=== PATIENT | male | born 1935 | race Caucasian/White ===

== ENCOUNTER 2018-05-14 22:49 | Inpatient (IN) | payer MEDICARE, OTHER ==
[~2018-05-14] VITALS: Ht 182.9 cm; Wt 72.6 kg
[2018-05-14] MEDS ORDERED: LORATADINE10 M2 PO (23:17)
[2018-05-14] MEDS ORDERED: ZYPREXA2.5 MG ORAL (23:17)
[2018-05-14] MEDS ORDERED: DEPAKENE L250 MG/5 M GT (23:17)
[2018-05-14] MEDS ORDERED: COLACE100 MG ORAL (23:17)
[2018-05-14] MEDS ORDERED: SYNTHROID25 MCG ORAL (23:17)
[2018-05-15] VITALS (8 sets, daily range): BP systolic 102–137; BP diastolic 50–79
[2018-05-15 00:03] LABS: ANION GAP 10 mmol/L (5-15); BLOOD UREA NITROGEN 17 mg/dL (7-18); CALCIUM 9.1 MG/DL (8.5-10.1); CARBON DIOXIDE 26 MMOL/L (21-32); CHLORIDE 104 MMOL/L (98-107); POTASSIUM 4.5 MMOL/L (3.5-5.1); SODIUM 140 MMOL/L (136-145)
[2018-05-15 00:12] LABS: ALBUMIN 2.7 G/DL (3.4-5.0); ALBUMIN/GLOBULIN RATIO 0.6 (1.0-2.7); ALKALINE PHOSPHATASE 97 U/L (46-116); ASPARTATE AMINO TRANSFERASE 13 U/L (15-37); BILIRUBIN,TOTAL 0.3 MG/DL (0.2-1.0); CREATINE KINASE 130 U/L (26-308)
[2018-05-15 00:14] LABS: BILIRUBIN, URINE NEGATIVE (NEGATIVE); GLUCOSE, URINE (UA) NEGATIVE (NEGATIVE); KETONES,URINE NEGATIVE (NEGATIVE); LEUKOCYTE ESTERASE ,URINE 1+ (NEGATIVE); NITRITE,URINE NEGATIVE (NEGATIVE); PH,URINE 5 (4.5-8.0); PROTEIN,URINE 2+ (NEGATIVE); UROBILINOGEN,URINE NORMAL MG/DL (0.0-1.0)
[2018-05-15] MEDS ORDERED: NS 1000ml 2,200 ML IVLG ONE (00:15)
[2018-05-15] MEDS ORDERED: Albuterol/Ipratropium 3ml neb HHN ONE (00:15)
[2018-05-15] MEDS ORDERED: Cefepime HCl 1 GM in D5W 55 ML IVPB ONE (00:15)
[2018-05-15 00:16] LABS: HEMATOCRIT 33.9 % (42.0-52.0); HEMOGLOBIN 11.3 G/DL (14.2-18.0); MEAN CORPUSCULAR VOLUME 86 FL (80-99); PLATELET COUNT 291 K/UL (150-450); RED BLOOD COUNT 3.93 M/UL (4.70-6.10); RED CELL DISTRIBUTION WIDTH 14.7 % (11.6-14.8); WHITE BLOOD COUNT 17.1 K/UL (4.8-10.8)
[2018-05-15 00:28] LABS: APPEARANCE,URINE CLEAR; COLOR,URINE YELLOW
[2018-05-15 00:49] LABS: ALANINE AMINOTRANSFERASE 16 U/L (12-78); CKMB 1.5 NG/ML (0.0-3.6)
--- NOTE | 2018-05-15 04:27 | Emergency Room Report ---
History of Present Illness General Chief Complaint: Fever Source: Patient Present Illness HPI Patient is an 82-year-old male sent in by PMD after increased fever. The patient was noted to have increased difficulty breathing. He had prior history of schizophrenia. The patient noted to have increased work of breathing. The patient was noted to be somewhat confused. This was noted to have temperature up to 101. History is markedly limited by poor historian. Allergies: Coded Allergies: No Known Allergies (Unverified , 05/14/18) Patient History Past Medical History: see triage record Reviewed Nursing Documentation: PMH: Agreed; PSxH: Agreed Nursing Documentation-PMH Past Medical History: No History, Except For Hx Cardiac Problems: Yes - hypokalemia, CKD Hx Asthma: Yes Hx COPD: Yes Hx Cancer: No Hx Gastrointestinal Problems: Yes - malnutrition, DYSPHAGIA Hx Dialysis: No - CKD Hx Neurological Problems: Yes Hx Dementia: Yes - without behavioral disturbance Review of Systems All Other Systems: negative except mentioned in HPI Physical Exam Vital Signs Date Time Temp Pulse Resp B/P (MAP) Pulse Ox O2 Delivery O2 Flow Rate FiO2 05/14/18 22:50 97.2 82 14 102/62 95 Room Air 05/15/18 00:08 21 Sp02 EP Interpretation: reviewed, normal General Appearance: no apparent distress, Chronically Ill Head: atraumatic ENT: dry mucus membranes Neck: normal inspection, supple, no bony tend, limited range of motion Respiratory: normal inspection, no respiratory distress, no retraction, rhonchi Cardiovascular #1: regular rate, rhythm, no edema Gastrointestinal: normal inspection, normal bowel sounds, non tender, soft, no guarding, no hernia Genitourinary: no CVA tenderness Musculoskeletal: normal inspection, back normal, decreased range of motion Neurologic: aphasia, motor weakness Psychiatric: depressed affect Skin: normal inspection, normal color, no rash Medical Decision Making Diagnostic Impression: Primary Impression: Pneumonia ER Course Patient presented for fever and shortness of breath. Differential included but was not limited to anemia, pneumonia, pneumothorax, myocardial infarction, pericardial effusion, congestive heart failure, acidosis. Because of complexity of patient's case laboratory testing and imaging studies were ordered. Patient noted to have a fever. Chest x-ray one view interpreted by me showed right lower lobe infiltrate. The laboratory testing was no for elevated white blood count. The patient started on IV fluids as well as IV antibiotics. Dr. Rell Tovar was contacted for inpatient management due to primary care physician Labs Test 05/14/18 23:30 05/15/18 00:03 White Blood Count 17.1 K/UL (4.8-10.8) Red Blood Count 3.93 M/UL (4.70-6.10) Hemoglobin 11.3 G/DL (14.2-18.0) Hematocrit 33.9 % (42.0-52.0) Mean Corpuscular Volume 86 FL (80-99) Mean Corpuscular Hemoglobin 28.7 PG (27.0-31.0) Mean Corpuscular Hemoglobin Concent 33.3 G/DL (32.0-36.0) Red Cell Distribution Width 14.7 % (11.6-14.8) Platelet Count 291 K/UL (150-450) Mean Platelet Volume 6.5 FL (6.5-10.1) Neutrophils (%) (Auto) % (45.0-75.0) Lymphocytes (%) (Auto) % (20.0-45.0) Monocytes (%) (Auto) % (1.0-10.0) Eosinophils (%) (Auto) % (0.0-3.0) Basophils (%) (Auto) % (0.0-2.0) Sodium Level 140 MMOL/L (136-145) Potassium Level 4.5 MMOL/L (3.5-5.1) Chloride Level 104 MMOL/L (98-107) Carbon Dioxide Level 26 MMOL/L (21-32) Anion Gap 10 mmol/L (5-15) Blood Urea Nitrogen 17 mg/dL (7-18) Creatinine 1.0 MG/DL (0.55-1.30) Estimat Glomerular Filtration Rate mL/min (>60) Glucose Level 129 MG/DL (74-106) Lactic Acid Level 1.50 mmol/L (0.4-2.0) Calcium Level 9.1 MG/DL (8.5-10.1) Phosphorus Level 4.0 MG/DL (2.5-4.9) Magnesium Level 1.9 MG/DL (1.8-2.4) Total Bilirubin 0.3 MG/DL (0.2-1.0) Aspartate Amino Transf (AST/SGOT) 13 U/L (15-37) Alanine Aminotransferase (ALT/SGPT) 16 U/L (12-78) Alkaline Phosphatase 97 U/L (46-116) Total Creatine Kinase 130 U/L (26-308) Creatine Kinase MB 1.5 NG/ML (0.0-3.6) Creatine Kinase MB Relative Index 1.1 Troponin I 0.006 ng/mL (0.000-0.056) Pro-B-Type Natriuretic Peptide 335 pg/mL (0-125) Total Protein 7.4 G/DL (6.4-8.2) Albumin 2.7 G/DL (3.4-5.0) Globulin 4.7 g/dL Albumin/Globulin Ratio 0.6 (1.0-2.7) Thyroid Stimulating Hormone (TSH) 2.740 uiU/mL (0.358-3.740) Free Thyroxine 0.85 NG/DL (0.76-1.46) Valproic Acid (Depakene) Level 16 MCG/ML (50-100) Urine Color Yellow Urine Appearance Clear Urine pH 5 (4.5-8.0) Urine Specific [place] 1.020 (1.005-1.035) Urine Protein 2+ (NEGATIVE) Urine Glucose (UA) Negative (NEGATIVE) Urine Ketones Negative (NEGATIVE) Urine Blood 2+ (NEGATIVE) Urine Nitrite Negative (NEGATIVE) Urine Bilirubin Negative (NEGATIVE) Urine Urobilinogen Normal MG/DL (0.0-1.0) Urine Leukocyte Esterase 1+ (NEGATIVE) Urine RBC 5-10 /HPF (0 - 0) Urine WBC 0-2 /HPF (0 - 0) Urine Squamous Epithelial Cells Few /LPF (NONE/OCC) Urine Bacteria Few /HPF (NONE) EKG Diagnostic Results Rate: normal Rhythm: NSR ST Segments: no acute changes Last Vital Signs Date Time Temp Pulse Resp B/P (MAP) Pulse Ox O2 Delivery O2 Flow Rate FiO2 05/15/18 02:00 Room Air Room Air 05/15/18 01:40 98.7 73 16 130/79 100 05/15/18 01:40 21 Status: unchanged Disposition: ADMITTED INPATIENT Condition: Serious Referrals: Rell Tovar DO (PCP) Rafael Julio MD May 15, 2018 04:27
[2018-05-15] MEDS: D5 1/2NS 1,000 ML IV SCH ×2 (04:58→21:40)
[2018-05-15] MEDS: Levothyroxine 25mcg tab ORAL SCH (06:01)
[2018-05-15 06:58] LABS: ANION GAP 9 mmol/L (5-15); BASOPHILS % (AUTO) 0.9 % (0.0-2.0); BLOOD UREA NITROGEN 14 mg/dL (7-18); CALCIUM 9.2 MG/DL (8.5-10.1); CARBON DIOXIDE 25 MMOL/L (21-32); CHLORIDE 107 MMOL/L (98-107); CREATININE 0.7 MG/DL (0.55-1.30); EOSINOPHILS % (AUTO) 0.3 % (0.0-3.0); HEMATOCRIT 33.9 % (42.0-52.0); HEMOGLOBIN 11.2 G/DL (14.2-18.0); LYMPHOCYTES % (AUTO) 12.5 % (20.0-45.0); MEAN CORPUSCULAR VOLUME 87 FL (80-99); MONOCYTES % (AUTO) 5.8 % (1.0-10.0); NEUTROPHILS % (AUTO) 80.4 % (45.0-75.0); PLATELET COUNT 264 K/UL (150-450); RED BLOOD COUNT 3.92 M/UL (4.70-6.10); SODIUM 141 MMOL/L (136-145); WHITE BLOOD COUNT 13.6 K/UL (4.8-10.8)
[2018-05-15] MEDS: Docusate 100mg cap ORAL SCH (08:26)
[2018-05-15] MEDS: OLANZapine 2.5mg tab ORAL SCH ×3 (08:26→17:00)
[2018-05-15] MEDS ORDERED: Promethazine/Codeine 5ml UD ORAL PRN (10:30)
--- NOTE | 2018-05-15 10:36 | Consultation ---
History of Present Illness General Date patient seen: May 15, 2018 Chief Complaint: Fever Present Illness HPI 82-year-old male with hx of psychiatric disease, COPD, hypothyroid, jail resident sent in to ER with CC of fever. The patient was noted to have increased difficulty breathing and increased work of breathing. He was somewhat confused. History is markedly limited by poor historian. His CXR showed RLL infiltrate and he had borderline low BP and admitted to [facility]. Allergies: Coded Allergies: No Known Allergies (Unverified , 05/14/18) Medication History Scheduled Docusate Sodium* (Colace*), 100 MG ORAL DAILY, (Reported) Levothyroxine Sodium* (Synthroid*), 25 MCG ORAL DAILY, (Reported) Olanzapine* (Zyprexa*), 2.5 MG ORAL TID, (Reported) Miscellaneous Medications Loratadine (Loratadine), 10 MG PO, (Reported) Valproic Acid (Valproic Acid), 250 MG GT, (Reported) Patient History Healthcare decision maker Resuscitation status Full Code Advanced Directive on File Yes Past Medical/Surgical History Past Medical/Surgical History: (1) Emphysema lung (2) Psychiatric disorder (3) Hypothyroid Review of Systems Constitutional: Reports: fever, malaise Respiratory: Reports: cough, shortness of breath Physical Exam General Appearance: cachetic Lines, tubes and drains: peripheral Neck: non-tender, normal alignment Respiratory/Chest: rhonchi - left, rhonchi - right Cardiovascular/Chest: normal peripheral pulses, normal rate Abdomen: normal bowel sounds, non tender Genitourinary/Rectal: normal genital exam, normal rectal exam Extremities: normal range of motion, non-tender Skin Exam: normal pigmentation 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 Last 24 Hour Vital Signs Date Time Temp Pulse Resp B/P (MAP) Pulse Ox O2 Delivery O2 Flow Rate FiO2 05/15/18 08:00 85 05/15/18 08:00 Room Air Room Air 05/15/18 08:00 96.8 66 22 137/69 (91) 99 05/15/18 04:00 97.7 82 16 122/66 (84) 97 05/15/18 04:00 Room Air Room Air 05/15/18 03:38 65 05/15/18 02:00 Room Air Room Air 05/15/18 01:45 97.6 85 16 118/70 (86) 97 05/15/18 01:43 84 05/15/18 01:40 98.7 73 16 130/79 100 Room Air 05/15/18 01:40 98.7 73 16 130/79 100 Room Air 21 05/15/18 00:25 95 18 Room Air 05/15/18 00:20 74 16 99 Room Air 21 05/15/18 00:08 71 15 98 Room Air 21 05/15/18 00:08 71 15 Room Air 21 05/15/18 00:00 97.5 95 16 102/62 95 Room Air 05/14/18 22:50 97.2 82 14 102/62 95 Room Air Intake and Output 05/14/18 05/15/18 19:00 07:00 Intake Total 1670 ml Balance 1670 ml Intake Oral 0 ml IV Total 1670 ml Laboratory Tests Test 05/14/18 23:30 05/15/18 00:03 05/15/18 06:30 White Blood Count 17.1 K/UL (4.8-10.8) H 13.6 K/UL (4.8-10.8) H Red Blood Count 3.93 M/UL (4.70-6.10) L 3.92 M/UL (4.70-6.10) L Hemoglobin 11.3 G/DL (14.2-18.0) L 11.2 G/DL (14.2-18.0) L Hematocrit 33.9 % (42.0-52.0) L 33.9 % (42.0-52.0) L Mean Corpuscular Volume 86 FL (80-99) 87 FL (80-99) Mean Corpuscular Hemoglobin 28.7 PG (27.0-31.0) 28.7 PG (27.0-31.0) Mean Corpuscular Hemoglobin Concent 33.3 G/DL (32.0-36.0) 33.1 G/DL (32.0-36.0) Red Cell Distribution Width 14.7 % (11.6-14.8) 15.0 % (11.6-14.8) H Platelet Count 291 K/UL (150-450) 264 K/UL (150-450) Mean Platelet Volume 6.5 FL (6.5-10.1) 6.6 FL (6.5-10.1) Neutrophils (%) (Auto) % (45.0-75.0) 80.4 % (45.0-75.0) H Lymphocytes (%) (Auto) % (20.0-45.0) 12.5 % (20.0-45.0) L Monocytes (%) (Auto) % (1.0-10.0) 5.8 % (1.0-10.0) Eosinophils (%) (Auto) % (0.0-3.0) 0.3 % (0.0-3.0) Basophils (%) (Auto) % (0.0-2.0) 0.9 % (0.0-2.0) Sodium Level 140 MMOL/L (136-145) 141 MMOL/L (136-145) Potassium Level 4.5 MMOL/L (3.5-5.1) 4.0 MMOL/L (3.5-5.1) Chloride Level 104 MMOL/L (98-107) 107 MMOL/L (98-107) Carbon Dioxide Level 26 MMOL/L (21-32) 25 MMOL/L (21-32) Anion Gap 10 mmol/L (5-15) 9 mmol/L (5-15) Blood Urea Nitrogen 17 mg/dL (7-18) 14 mg/dL (7-18) Creatinine 1.0 MG/DL (0.55-1.30) 0.7 MG/DL (0.55-1.30) Estimat Glomerular Filtration Rate mL/min (>60) mL/min (>60) Glucose Level 129 MG/DL (74-106) H 108 MG/DL (74-106) H Lactic Acid Level 1.50 mmol/L (0.4-2.0) Calcium Level 9.1 MG/DL (8.5-10.1) 9.2 MG/DL (8.5-10.1) Phosphorus Level 4.0 MG/DL (2.5-4.9) Magnesium Level 1.9 MG/DL (1.8-2.4) Total Bilirubin 0.3 MG/DL (0.2-1.0) Aspartate Amino Transf (AST/SGOT) 13 U/L (15-37) L Alanine Aminotransferase (ALT/SGPT) 16 U/L (12-78) Alkaline Phosphatase 97 U/L (46-116) Total Creatine Kinase 130 U/L (26-308) Creatine Kinase MB 1.5 NG/ML (0.0-3.6) Creatine Kinase MB Relative Index 1.1 Troponin I 0.006 ng/mL (0.000-0.056) Pro-B-Type Natriuretic Peptide 335 pg/mL (0-125) H Total Protein 7.4 G/DL (6.4-8.2) Albumin 2.7 G/DL (3.4-5.0) L Globulin 4.7 g/dL Albumin/Globulin Ratio 0.6 (1.0-2.7) L Thyroid Stimulating Hormone (TSH) 2.740 uiU/mL (0.358-3.740) Free Thyroxine 0.85 NG/DL (0.76-1.46) Valproic Acid (Depakene) Level 16 MCG/ML (50-100) L Urine Color Yellow Urine Appearance Clear Urine pH 5 (4.5-8.0) Urine Specific [place] 1.020 (1.005-1.035) Urine Protein 2+ (NEGATIVE) H Urine Glucose (UA) Negative (NEGATIVE) Urine Ketones Negative (NEGATIVE) Urine Blood 2+ (NEGATIVE) H Urine Nitrite Negative (NEGATIVE) Urine Bilirubin Negative (NEGATIVE) Urine Urobilinogen Normal MG/DL (0.0-1.0) Urine Leukocyte Esterase 1+ (NEGATIVE) H Urine RBC 5-10 /HPF (0 - 0) H Urine WBC 0-2 /HPF (0 - 0) Urine Squamous Epithelial Cells Few /LPF (NONE/OCC) Urine Bacteria Few /HPF (NONE) Height (Feet): 6 Weight (Pounds): 160 Medications Current Medications Medications (Trade) Dose Ordered Sig/Tiara Route PRN Reason Start Time Stop Time Status Last Admin Dose Admin Dextrose (Dextrose 50%) 25 ml Q30M PRN IV Hypoglycemia 05/15/18 04:45 06/14/18 04:44 Dextrose (Dextrose 50%) 50 ml Q30M PRN IV Hypoglycemia 05/15/18 04:45 06/14/18 04:44 Dextrose/Sodium Chloride 1,000 ml @ 60 mls/hr [id number] IV 05/15/18 05:00 06/14/18 04:59 05/15/18 04:58 Docusate Sodium (Colace) 100 mg DAILY ORAL 05/15/18 09:00 06/14/18 08:59 05/15/18 08:26 Levothyroxine Sodium (Synthroid) 25 mcg DAILY@0630 ORAL 05/15/18 06:30 06/14/18 06:29 05/15/18 06:01 Loratadine (Claritin 10mg) 10 mg DAILY ORAL 05/15/18 09:00 06/14/18 08:59 05/15/18 08:26 Olanzapine (ZyPREXA) 2.5 mg TID ORAL 05/15/18 09:00 06/14/18 08:59 05/15/18 08:26 Valproic Acid (Depakene) 250 mg TWICE A DAY ORAL 05/15/18 09:00 06/14/18 08:59 05/15/18 08:27 Assessment/Plan Problem List: (1) Pneumonia ICD Codes: J18.9 - Pneumonia, unspecified organism SNOMED: 802809238 (2) At high risk for aspiration ICD Codes: Z91.89 - Other specified personal risk factors, not elsewhere classified SNOMED: 403992670 (3) Severe protein-calorie malnutrition ICD Codes: E43 - Unspecified severe protein-calorie malnutrition SNOMED: 126001152 (4) Emphysema lung ICD Codes: J43.9 - Emphysema, unspecified SNOMED: 94491889 (5) Hypothyroid ICD Codes: E03.9 - Hypothyroidism, unspecified SNOMED: 48224630 (6) Psychiatric disorder ICD Codes: F99 - Mental disorder, not otherwise specified SNOMED: 81169649, 762367913 Assessment/Plan swallow evaluation respiratory treatment check electrolytes check sputum broad spectrum abx ID evaluation sputum induction titrate fio2 to sat of 92% dvt prophylaxis. Boni Miller MD May 15, 2018 10:36
--- NOTE | 2018-05-15 11:27 | Diagnostic Imaging Report ---
Indication: Dyspnea Comparison: None A single view chest radiograph was obtained. Findings: Interstitial vascular prominence demonstrated. Heart size is normal. Bones are slightly osteopenic. IMPRESSION: CHF suspected
[2018-05-15] MEDS ORDERED: Vancomycin 1.5 GM/D5W 250ML IVPB ONE (11:30)
[2018-05-15] MEDS: Albuterol/Ipratropium 3ml neb HHN SCH ×2 (12:50→19:40)
[2018-05-15] MEDS: Piperacillin/Tazobactam 3.375 GM in NS 110 ML IVPB SCH ×2 (13:10→21:37)
[2018-05-15] MEDS: Heparin 5000 units/ml inj SUBQ SCH ×2 (13:11→20:47)
--- NOTE | 2018-05-15 18:57 | Consultation ---
Consult Note Consult Note [id number] Wale Driver MD May 15, 2018 18:57
--- NOTE | 2018-05-15 19:30 | History and Physical Report ---
DATE OF ADMISSION: 05/14/2018 TIME SEEN: At 1 p.m. CONSULTANTS: 1. Boni Miller M.D. 2. Wale Driver M.D. 3. Brad Sumner M.D. CHIEF COMPLAINT: Pneumonia, sepsis, leukocytosis, schizophrenia. HISTORY OF PRESENT ILLNESS: This is an 82-year-old male from [facility] [place], who presents to [facility] with the above-mentioned diagnoses, admitted to [facility] for further care. Currently, sleeping in bed, confused, not talking much. REVIEW OF SYSTEMS: Unavailable. PAST MEDICAL HISTORY: Includes schizophrenia, emphysema, hypothyroid, malnutrition. PAST SURGICAL HISTORY: Unknown. ALLERGIES: Denies. MEDICATIONS: Include vancomycin, theophylline, Zosyn, heparin, albuterol, promethazine, docusate sodium, loratadine, and Zyprexa. SOCIAL HISTORY: Unable to obtain secondary to the patient's condition. PHYSICAL EXAMINATION: GENERAL: Lethargic in bed, refusing to answer questions, slight short of breath. VITAL SIGNS: Temperature is 97 degrees, pulse 74, respirations 16, blood pressure 107/50. CARDIOVASCULAR: No murmur. LUNGS: Poor air exchange. ABDOMEN: Bowel sounds distant. EXTREMITIES: Show no cyanosis, clubbing, or edema. NEUROLOGIC: The patient is flaccid in bed, does not want to follow directions. LABORATORY DATA: Labs at this time show white count 13.6, hemoglobin and hematocrit 11/33, and platelets 264,000. BMP shows glucose 108, troponin 0.00, albumin 2.7, otherwise normal. Urinalysis shows 1+ leukocyte esterase and urine-tox valproic 16. ASSESSMENT: UTI, pneumonia, sepsis, leukocytosis, schizophrenia, anemia, emphysema, hypothyroid, malnutrition. PLAN: 1. O2 and pulmonary treatment. 2. Antibiotics per Infectious Disease. 3. OT, PT, dietary evaluation. 4. CBC and BMP in the morning. 5. Resume home medications. 6. We will continue to follow this patient. Rell Tovar D.O. DR: Kenyatta JOB#: [id number] CC:
[2018-05-15] MEDS: Theophylline ER 100mg ORAL SCH (20:46)
--- NOTE | 2018-05-15 22:15 | Consultation ---
DATE OF CONSULTATION: 05/15/2018 INFECTIOUS DISEASE PRODUCT DESIGNER PHYSICIAN: Wale Driver M.D. REFERRING PHYSICIAN: Rell Tovar D.O. REASON FOR CONSULTATION: Evaluation of the patient with sepsis and antibiotic management. HISTORY OF PRESENT ILLNESS: This is an 82-year-old male with multiple medical problems, who was transferred here from shelter to this medical center due to shortness of breath and fever. The patient is a poor historian. Infectious Disease consultation has been requested for further evaluation of the patient for possible pneumonia and sepsis. PAST MEDICAL HISTORY: 1. COPD. 2. Hypothyroidism. 3. Schizophrenia. 4. Dementia. 5. History of CKD. 6. Anemia. ALLERGIES: No known drug allergies. MEDICATIONS: On vancomycin and Zosyn. SOCIAL HISTORY: The patient lives in shelter. FAMILY HISTORY: Unavailable. REVIEW OF SYSTEMS: Limited. Much of information has been gathered as mentioned above. The patient however denies of having abdominal pain, nausea, vomiting (however, the history is not completely reliable). PHYSICAL EXAMINATION: VITAL SIGNS: Temperature 97.3, pulse 66, respiratory rate 18, and blood pressure 117/79. HEENT: No pale conjunctivae. No scleral icterus. NECK: No lymphadenopathy. CHEST: Coarse breathing sounds. HEART: S1 and S2. ABDOMEN: Soft. EXTREMITIES: No cyanosis at this time. NEUROLOGIC: Awake. LABORATORY AND DIAGNOSTIC DATA: White blood cells 13.7 and at the time of admission was 17, hemoglobin 11, platelets 264,000. UA unremarkable. BUN 14, creatinine 0.7. ALT, AST, and alkaline phosphatase unremarkable. BNP 335. Chest x-ray, CHF findings. ASSESSMENT: The patient is an 82-year-old male with: 1. Leukocytosis. 2. Fever (prior to the admission). 3. Possible pneumonia. 4. Rule out probable bacteremia. PLAN: 1. We will continue the patient on vancomycin and Zosyn for now. 2. Monitor CBC. 3. Monitor BMP. 4. Monitor chest x-ray. 5. Monitor cultures (blood, urine, and sputum). 6. Based on the patient's clinical course and laboratories, we will do further recommendation. Thank you, Dr. Miller, for allowing me to participate in the care of this patient. I will follow the patient with you during this hospitalization. Wale Driver M.D. DR: Sheng JOB#: [id number] CC:
[2018-05-16] VITALS: BP 102/64
[2018-05-16] MEDS: Albuterol/Ipratropium 3ml neb HHN SCH ×4 (01:00→20:07)
[2018-05-16 04:00] VITALS: BP 114/56
[2018-05-16] MEDS: Piperacillin/Tazobactam 3.375 GM in NS 110 ML IVPB SCH ×3 (05:58→21:11)
[2018-05-16] MEDS: Levothyroxine 25mcg tab ORAL SCH (05:58)
[2018-05-16 06:09] LABS: EOSINOPHILS % (AUTO) 3.3 % (0.0-3.0); HEMATOCRIT 30.6 % (42.0-52.0); HEMOGLOBIN 10.3 G/DL (14.2-18.0); LYMPHOCYTES % (AUTO) 22.1 % (20.0-45.0); MEAN CORPUSCULAR VOLUME 86 FL (80-99); MONOCYTES % (AUTO) 5.4 % (1.0-10.0); NEUTROPHILS % (AUTO) 68.2 % (45.0-75.0); PLATELET COUNT 253 K/UL (150-450); RED BLOOD COUNT 3.55 M/UL (4.70-6.10); RED CELL DISTRIBUTION WIDTH 15.2 % (11.6-14.8); WHITE BLOOD COUNT 8.1 K/UL (4.8-10.8)
[2018-05-16 06:31] LABS: ALANINE AMINOTRANSFERASE 16 U/L (12-78); ALBUMIN 2.5 G/DL (3.4-5.0); ALBUMIN/GLOBULIN RATIO 0.6 (1.0-2.7); ALKALINE PHOSPHATASE 82 U/L (46-116); ANION GAP 8 mmol/L (5-15); ASPARTATE AMINO TRANSFERASE 16 U/L (15-37); BILIRUBIN,TOTAL 0.3 MG/DL (0.2-1.0); BLOOD UREA NITROGEN 12 mg/dL (7-18); CALCIUM 8.9 MG/DL (8.5-10.1); CARBON DIOXIDE 28 MMOL/L (21-32); CHLORIDE 105 MMOL/L (98-107); CREATININE 0.8 MG/DL (0.55-1.30); PHOSPHORUS 3.6 MG/DL (2.5-4.9); POTASSIUM 3.9 MMOL/L (3.5-5.1); SODIUM 141 MMOL/L (136-145)
[2018-05-16 08:00] VITALS: BP 111/64
[2018-05-16] MEDS: Docusate 100mg cap ORAL SCH (09:03)
[2018-05-16] MEDS: OLANZapine 2.5mg tab ORAL SCH ×3 (09:03→17:57)
[2018-05-16] MEDS: Theophylline ER 100mg ORAL SCH ×2 (09:03→21:11)
[2018-05-16] MEDS: Heparin 5000 units/ml inj SUBQ SCH ×2 (09:04→21:12)
--- NOTE | 2018-05-16 11:25 | Pulmonology Progress Note ---
Assessment/Plan Problems: (1) Pneumonia (2) At high risk for aspiration (3) Severe protein-calorie malnutrition (4) Emphysema lung (5) Hypothyroid (6) Psychiatric disorder Assessment/Plan swallow study reviewed swallow evaluation, video is recommended respiratory treatment check electrolytes check sputum broad spectrum abx ID evaluation appreciated sputum induction titrate fio2 to sat of 92% dvt prophylaxis. Subjective ROS Limited/Unobtainable: No Constitutional: Reports: no symptoms HEENT: Repors: no symptoms Respiratory: Reports: other Allergies: Coded Allergies: No Known Allergies (Unverified , 05/14/18) Objective Last 24 Hour Vital Signs Date Time Temp Pulse Resp B/P (MAP) Pulse Ox O2 Delivery O2 Flow Rate FiO2 05/16/18 08:00 97.3 86 20 111/64 (80) 95 05/16/18 07:47 82 05/16/18 07:26 85 16 98 Room Air 21 05/16/18 07:16 75 16 96 Room Air 21 05/16/18 04:00 Room Air Room Air 05/16/18 04:00 97.6 73 16 114/56 (75) 97 05/16/18 04:00 87 05/16/18 01:39 Room Air 05/16/18 01:38 Room Air 05/16/18 00:00 Room Air Room Air 05/16/18 00:00 97.9 93 20 102/64 (77) 95 05/16/18 00:00 95 05/15/18 20:00 83 05/15/18 20:00 97.9 96 18 106/71 (83) 96 05/15/18 20:00 Room Air Room Air 05/15/18 19:50 80 16 98 Room Air 21 05/15/18 19:41 84 16 96 Room Air 21 05/15/18 16:00 Room Air Room Air 05/15/18 16:00 97.3 75 20 117/59 (78) 95 05/15/18 16:00 77 05/15/18 13:00 74 16 Room Air 21 05/15/18 13:00 74 16 98 Room Air 21 05/15/18 12:51 72 16 98 Room Air 21 05/15/18 12:00 Room Air Room Air 05/15/18 12:00 97.2 76 18 107/50 (69) 99 05/15/18 11:34 101 Intake and Output 05/15/18 05/16/18 18:59 06:59 Intake Total 1440 ml 480 ml Output Total 150 ml Balance 1440 ml 330 ml Intake Oral 250 ml 180 ml IV Total 1190 ml 300 ml Output Urine Total 150 ml # Voids 3 General Appearance: cachetic HEENT: normocephalic, atraumatic Respiratory/Chest: chest wall non-tender, crackles/rales Cardiovascular: normal peripheral pulses, normal rate Abdomen: normal bowel sounds, soft, non tender Extremities: no cyanosis, no clubbing Skin: no ulcers Neurologic/Psychiatric: no motor/sensory deficits, normal mood/affect Lymphatic: no groin adenopathy Microbiology Date/Time Source Procedure Growth Status 05/14/18 23:30 Blood Blood Culture - Preliminary NO GROWTH AFTER 24 HOURS Resulted 05/14/18 23:15 Blood Blood Culture - Preliminary NO GROWTH AFTER 24 HOURS Resulted Laboratory Tests 05/16/18 04:20: White Blood Count 8.1, Red Blood Count 3.55L, Hemoglobin 10.3L, Hematocrit 30.6L , Mean Corpuscular Volume 86, Mean Corpuscular Hemoglobin 29.1, Mean Corpuscular Hemoglobin Concent 33.7, Red Cell Distribution Width 15.2H, Platelet Count 253, Mean Platelet Volume 6.2L, Neutrophils (%) (Auto) 68.2, Lymphocytes (%) (Auto) 22.1, Monocytes (%) (Auto) 5.4, Eosinophils (%) (Auto) 3.3H, Basophils (%) (Auto) 1.0, Erythrocyte Sedimentation Rate 85H, Sodium Level 141, Potassium Level 3.9, Chloride Level 105, Carbon Dioxide Level 28, Anion Gap 8, Blood Urea Nitrogen 12, Creatinine 0.8, Estimat Glomerular Filtration Rate , Glucose Level 81, Calcium Level 8.9, Phosphorus Level 3.6, Magnesium Level 1.9, Total Bilirubin 0.3, Aspartate Amino Transf (AST/SGOT) 16, Alanine Aminotransferase (ALT/SGPT) 16, Alkaline Phosphatase 82, C-Reactive Protein, Quantitative 5.2H, Total Protein 7.0, Albumin 2.5L, Globulin 4.5, Albumin/Globulin Ratio 0.6L Current Medications Medications (Trade) Dose Ordered Sig/Tiara Route PRN Reason Start Time Stop Time Status Last Admin Dose Admin Albuterol/ Ipratropium (Albuterol/ Ipratropium) 3 ml Q6HRT HHN 05/15/18 13:00 05/20/18 12:59 05/16/18 07:17 Dextrose (Dextrose 50%) 25 ml Q30M PRN IV Hypoglycemia 05/15/18 04:45 06/14/18 04:44 Dextrose (Dextrose 50%) 50 ml Q30M PRN IV Hypoglycemia 05/15/18 04:45 06/14/18 04:44 Dextrose/Sodium Chloride 1,000 ml @ 60 mls/hr [id number] IV 05/15/18 05:00 06/14/18 04:59 05/15/18 21:40 Docusate Sodium (Colace) 100 mg DAILY ORAL 05/15/18 09:00 06/14/18 08:59 05/16/18 09:03 Heparin Sodium (Porcine) (Heparin 5000 units/ml) 5,000 units EVERY 12 HOURS SUBQ 05/15/18 14:00 06/14/18 13:59 05/16/18 09:04 Levothyroxine Sodium (Synthroid) 25 mcg DAILY@0630 ORAL 05/15/18 06:30 06/14/18 06:29 05/16/18 05:58 Loratadine (Claritin 10mg) 10 mg DAILY ORAL 05/15/18 09:00 06/14/18 08:59 05/16/18 09:03 Olanzapine (ZyPREXA) 2.5 mg TID ORAL 05/15/18 09:00 06/14/18 08:59 05/16/18 09:03 Piperacillin Sod/ Tazobactam Sod 3.375 gm/Sodium Chloride 110 ml @ 220 mls/hr EVERY 8 HOURS IVPB 05/15/18 14:00 05/22/18 13:59 05/16/18 05:58 Promethazine HCl/ Codeine (Phenergan with Codeine) 5 ml Q4H PRN ORAL For Cough 05/15/18 10:30 06/14/18 10:29 05/15/18 22:43 Theophylline (Jac-Dur) 100 mg EVERY 12 HOURS ORAL 05/15/18 21:00 06/14/18 20:59 05/16/18 09:03 Valproic Acid (Depakene) 250 mg TWICE A DAY ORAL 05/15/18 09:00 06/14/18 08:59 05/16/18 09:03 Vancomycin HCl (Vanco rx to dose) 1 ea DAILY PRN MISC Per rx protocol 05/15/18 10:30 06/14/18 10:29 Vancomycin HCl 1 gm/Dextrose 275 ml @ 183.708 mls/hr Q24H IVPB 05/16/18 12:00 05/21/18 11:59 Boni Miller MD May 16, 2018 11:25
--- NOTE | 2018-05-16 11:51 | General Progress Note ---
Assessment/Plan Problem List: (1) UTI (urinary tract infection) ICD Codes: N39.0 - Urinary tract infection, site not specified SNOMED: 04016908 (2) Sepsis ICD Codes: A41.9 - Sepsis, unspecified organism SNOMED: 62744286 (3) Anemia ICD Codes: D64.9 - Anemia, unspecified SNOMED: 154489505 (4) Hypothyroid ICD Codes: E03.9 - Hypothyroidism, unspecified SNOMED: 81449601 (5) Pneumonia ICD Codes: J18.9 - Pneumonia, unspecified organism SNOMED: 421624821 (6) Schizo affective schizophrenia ICD Codes: F25.0 - Schizoaffective disorder, bipolar type SNOMED: 768955449 (7) Psychiatric disorder ICD Codes: F99 - Mental disorder, not otherwise specified SNOMED: 16756993, 563054269 (8) Hypothyroid ICD Codes: E03.9 - Hypothyroidism, unspecified SNOMED: 86360554 (9) Severe protein-calorie malnutrition ICD Codes: E43 - Unspecified severe protein-calorie malnutrition SNOMED: 108666634 Status: stable, progressing Assessment/Plan o2 pulm tx abx psyc tx cbc bmp am psyc transfer Subjective Constitutional: Reports: weakness Allergies: Coded Allergies: No Known Allergies (Unverified , 05/14/18) All Systems: reviewed and negative except above Subjective sleepy calm confused in restraints Objective Last 24 Hour Vital Signs Date Time Temp Pulse Resp B/P (MAP) Pulse Ox O2 Delivery O2 Flow Rate FiO2 05/16/18 08:00 97.3 86 20 111/64 (80) 95 05/16/18 07:47 82 05/16/18 07:26 85 16 98 Room Air 21 05/16/18 07:16 75 16 96 Room Air 21 05/16/18 04:00 Room Air Room Air 05/16/18 04:00 97.6 73 16 114/56 (75) 97 05/16/18 04:00 87 05/16/18 01:39 Room Air 05/16/18 01:38 Room Air 05/16/18 00:00 Room Air Room Air 05/16/18 00:00 97.9 93 20 102/64 (77) 95 05/16/18 00:00 95 05/15/18 20:00 83 10/25/18 20:00 97.9 96 18 106/71 (83) 96 05/15/18 20:00 Room Air Room Air 05/15/18 19:50 80 16 98 Room Air 21 05/15/18 19:41 84 16 96 Room Air 21 05/15/18 16:00 Room Air Room Air 05/15/18 16:00 97.3 75 20 117/59 (78) 95 05/15/18 16:00 77 05/15/18 13:00 74 16 Room Air 21 05/15/18 13:00 74 16 98 Room Air 21 05/15/18 12:51 72 16 98 Room Air 21 05/15/18 12:00 Room Air Room Air 05/15/18 12:00 97.2 76 18 107/50 (69) 99 Intake and Output 05/15/18 05/16/18 18:59 06:59 Intake Total 1440 ml 480 ml Output Total 150 ml Balance 1440 ml 330 ml Intake Oral 250 ml 180 ml IV Total 1190 ml 300 ml Output Urine Total 150 ml # Voids 3 Laboratory Tests 05/16/18 04:20: White Blood Count 8.1, Red Blood Count 3.55L, Hemoglobin 10.3L, Hematocrit 30.6L , Mean Corpuscular Volume 86, Mean Corpuscular Hemoglobin 29.1, Mean Corpuscular Hemoglobin Concent 33.7, Red Cell Distribution Width 15.2H, Platelet Count 253, Mean Platelet Volume 6.2L, Neutrophils (%) (Auto) 68.2, Lymphocytes (%) (Auto) 22.1, Monocytes (%) (Auto) 5.4, Eosinophils (%) (Auto) 3.3H, Basophils (%) (Auto) 1.0, Erythrocyte Sedimentation Rate 85H, Sodium Level 141, Potassium Level 3.9, Chloride Level 105, Carbon Dioxide Level 28, Anion Gap 8, Blood Urea Nitrogen 12, Creatinine 0.8, Estimat Glomerular Filtration Rate , Glucose Level 81, Calcium Level 8.9, Phosphorus Level 3.6, Magnesium Level 1.9, Total Bilirubin 0.3, Aspartate Amino Transf (AST/SGOT) 16, Alanine Aminotransferase (ALT/SGPT) 16, Alkaline Phosphatase 82, C-Reactive Protein, Quantitative 5.2H, Total Protein 7.0, Albumin 2.5L, Globulin 4.5, Albumin/Globulin Ratio 0.6L Height (Feet): 6 Weight (Pounds): 160 General Appearance: lethargic EENT: normal ENT inspection Neck: normal alignment Cardiovascular: normal peripheral pulses, normal rate, regular rhythm Respiratory/Chest: chest wall non-tender, decreased breath sounds Abdomen: normal bowel sounds, non tender, soft Extremities: normal inspection Edema: no edema noted Arm (L), no edema noted Arm (R), no edema noted Leg (L), no edema noted Leg (R), no edema noted Pedal (L), no edema noted Pedal (R), no edema noted Generalized Neurologic: motor weakness Skin: normal pigmentation, warm/dry Rell Tovar DO May 16, 2018 11:51
[2018-05-16 12:00] VITALS: BP 120/61
[2018-05-16] MEDS ORDERED: Vancomycin 1gm/D5W 275ml IVPB SCH ×2 (12:00)
[2018-05-16] MEDS: D5 1/2NS 1,000 ML IV SCH ×2 (14:21→17:57)
[2018-05-16] MEDS ORDERED: Acetylcysteine 20% Soln 4ml HHN SCH ×2 (14:45→19:00)
[2018-05-16 16:00] VITALS: BP 119/61
--- NOTE | 2018-05-16 16:13 | Cardiology Report ---
APPROVED REPORT EKG Measurement Heart [id number] CO 140P57 [id number] Normal sinus rhythm Normal ECG
[2018-05-16] MEDS ORDERED: Promethazine/Codeine 5ml UD ORAL PRN (17:00)
[2018-05-16 20:00] VITALS: BP 145/77
[2018-05-16] MEDS: Acetylcysteine 20% Soln 4ml HHN SCH (20:07)
--- NOTE | 2018-05-16 20:41 | Infectious Diseases Prog Note ---
Assessment/Plan Assessment/Plan ASSESSMENT: The patient is an 82-year-old male with: Leukocytosis Fever (prior to the admission) Possible pneumonia Rule out probable bacteremia COPD Hypothyroidism Schizophrenia Dementia History of CKD Anemia PLAN: Cont pt on the patient on vancomycin and Zosyn d# 2 Monitor CBC. Monitor BMP. Monitor chest x-ray. Monitor cultures (blood, urine, and sputum). Subjective Allergies: Coded Allergies: No Known Allergies (Unverified , 05/14/18) Subjective Afebrile Objective Vital Signs Last 24 Hour Vital Signs Date Time Temp Pulse Resp B/P (MAP) Pulse Ox O2 Delivery O2 Flow Rate FiO2 05/16/18 20:14 91 20 99 Room Air 21 05/16/18 20:07 87 20 98 Room Air 21 05/16/18 20:00 98.3 91 18 145/77 (99) 97 05/16/18 16:00 98.8 92 20 119/61 (80) 97 05/16/18 16:00 Room Air Room Air 05/16/18 12:57 Room Air 05/16/18 12:57 Room Air 05/16/18 12:00 97.2 86 20 120/61 (80) 97 05/16/18 12:00 78 05/16/18 12:00 Room Air Room Air 05/16/18 08:00 Room Air Room Air 05/16/18 08:00 97.3 86 20 111/64 (80) 95 05/16/18 07:47 82 05/16/18 07:26 85 16 98 Room Air 21 05/16/18 07:16 75 16 96 Room Air 21 05/16/18 04:00 Room Air Room Air 05/16/18 04:00 97.6 73 16 114/56 (75) 97 05/16/18 04:00 87 05/16/18 01:39 Room Air 05/16/18 01:38 Room Air 05/16/18 00:00 Room Air Room Air 05/16/18 00:00 97.9 93 20 102/64 (77) 95 05/16/18 00:00 95 Height (Feet): 6 Weight (Pounds): 160 HEENT: anicteric Respiratory/Chest: normal breath sounds Cardiovascular: no gallop/murmur Abdomen: no organomegaly Microbiology Date/Time Source Procedure Growth Status 05/14/18 23:30 Blood Blood Culture - Preliminary NO GROWTH AFTER 24 HOURS Resulted 05/14/18 23:15 Blood Blood Culture - Preliminary NO GROWTH AFTER 24 HOURS Resulted 05/15/18 11:30 Sputum Gram Stain - Final Resulted 05/15/18 11:30 Sputum Sputum Culture Pending Resulted Laboratory Tests Test 05/16/18 04:20 White Blood Count 8.1 K/UL (4.8-10.8) Red Blood Count 3.55 M/UL (4.70-6.10) L Hemoglobin 10.3 G/DL (14.2-18.0) L Hematocrit 30.6 % (42.0-52.0) L Mean Corpuscular Volume 86 FL (80-99) Mean Corpuscular Hemoglobin 29.1 PG (27.0-31.0) Mean Corpuscular Hemoglobin Concent 33.7 G/DL (32.0-36.0) Red Cell Distribution Width 15.2 % (11.6-14.8) H Platelet Count 253 K/UL (150-450) Mean Platelet Volume 6.2 FL (6.5-10.1) L Neutrophils (%) (Auto) 68.2 % (45.0-75.0) Lymphocytes (%) (Auto) 22.1 % (20.0-45.0) Monocytes (%) (Auto) 5.4 % (1.0-10.0) Eosinophils (%) (Auto) 3.3 % (0.0-3.0) H Basophils (%) (Auto) 1.0 % (0.0-2.0) Erythrocyte Sedimentation Rate 85 MM/HR (0-20) H Sodium Level 141 MMOL/L (136-145) Potassium Level 3.9 MMOL/L (3.5-5.1) Chloride Level 105 MMOL/L (98-107) Carbon Dioxide Level 28 MMOL/L (21-32) Anion Gap 8 mmol/L (5-15) Blood Urea Nitrogen 12 mg/dL (7-18) Creatinine 0.8 MG/DL (0.55-1.30) Estimat Glomerular Filtration Rate mL/min (>60) Glucose Level 81 MG/DL (74-106) Calcium Level 8.9 MG/DL (8.5-10.1) Phosphorus Level 3.6 MG/DL (2.5-4.9) Magnesium Level 1.9 MG/DL (1.8-2.4) Total Bilirubin 0.3 MG/DL (0.2-1.0) Aspartate Amino Transf (AST/SGOT) 16 U/L (15-37) Alanine Aminotransferase (ALT/SGPT) 16 U/L (12-78) Alkaline Phosphatase 82 U/L (46-116) C-Reactive Protein, Quantitative 5.2 mg/dL (0.00-0.90) H Total Protein 7.0 G/DL (6.4-8.2) Albumin 2.5 G/DL (3.4-5.0) L Globulin 4.5 g/dL Albumin/Globulin Ratio 0.6 (1.0-2.7) L Current Medications Medications (Trade) Dose Ordered Sig/Tiara Route PRN Reason Start Time Stop Time Status Last Admin Dose Admin Acetylcysteine (Mucomyst) 100 mg Q6HRT N 05/16/18 19:00 06/15/18 18:59 05/16/18 20:07 Albuterol/ Ipratropium (Albuterol/ Ipratropium) 3 ml Q6HRT N 05/16/18 19:00 05/20/18 12:59 05/16/18 20:07 Dextrose (Dextrose 50%) 25 ml Q30M PRN IV Hypoglycemia 05/16/18 16:15 06/14/18 04:44 Dextrose (Dextrose 50%) 50 ml Q30M PRN IV Hypoglycemia 05/16/18 16:15 06/14/18 04:44 Dextrose/Sodium Chloride 1,000 ml @ 60 mls/hr [id number] IV 05/16/18 16:15 06/14/18 04:59 05/16/18 17:57 Docusate Sodium (Colace) 100 mg DAILY ORAL 05/17/18 09:00 06/14/18 08:59 Heparin Sodium (Porcine) (Heparin 5000 units/ml) 5,000 units EVERY 12 HOURS SUBQ 05/16/18 21:00 06/14/18 13:59 Levothyroxine Sodium (Synthroid) 25 mcg DAILY@0630 ORAL 05/17/18 06:30 06/14/18 06:29 Loratadine (Claritin 10mg) 10 mg DAILY ORAL 05/17/18 09:00 06/14/18 08:59 Olanzapine (ZyPREXA) 2.5 mg TID ORAL 05/16/18 18:00 06/14/18 08:59 05/16/18 17:57 Piperacillin Sod/ Tazobactam Sod 3.375 gm/Sodium Chloride 110 ml @ 220 mls/hr EVERY 8 HOURS IVPB 05/16/18 22:00 05/22/18 13:59 Promethazine HCl/ Codeine (Phenergan with Codeine) 5 ml Q4H PRN ORAL For Cough 05/16/18 17:00 06/14/18 16:59 Theophylline (Jac-Dur) 100 mg EVERY 12 HOURS ORAL 05/16/18 21:00 06/14/18 20:59 Valproic Acid (Depakene) 250 mg TWICE A DAY ORAL 05/16/18 18:00 06/14/18 08:59 05/16/18 17:57 Vancomycin HCl (Vanco rx to dose) 1 ea DAILY PRN MISC Per rx protocol 05/16/18 17:00 06/15/18 16:59 Vancomycin HCl 1 gm/Dextrose 275 ml @ 183.708 mls/hr Q24H IVPB 05/17/18 12:00 05/21/18 11:59 Wale Driver MD May 16, 2018 20:41
[2018-05-17] VITALS: BP 121/80
--- NOTE | 2018-05-17 01:00 | Consultation ---
DATE OF CONSULTATION: 05/15/2018 PSYCHOTHERAPY CONSULTATION PROGRESS NOTE CONSULTING PHYSICIAN: Saige Calderon PsyD. TREATING ATTENDING PHYSICIAN: Rell Tovar M.D. HISTORY: This patient is an 82-year-old male patient from [facility], who presents to [facility] for confusion, admitted to [facility] for further care. The patient has a history of schizophrenia. For this reason, the patient was referred to psychotherapeutic services. This clinician has assessed the patient. The patient is very confused. He is able to articulate his thoughts. He states that he does not know where he lives. He believes that he is still at home. He left his home as he states he has difficulty going with colony. He does not know how old he was or why he was in the hospital at this time. The patient was confused, disorganized, and helpless. The patient denies any suicidal or homicidal thoughts of ideation. Denies any auditory or visual hallucinations. PAST MEDICAL HISTORY: He has a history of emphysema and hypothyroidism. ALLERGIES: The patient has no known drug allergies. SUBSTANCE ABUSE HISTORY: There is no indication of alcohol use, illicit substances, or smoking cigarettes. PAST PSYCHIATRIC HISTORY: The patient has a history of schizophrenia and has been treated with psychotropic medications in the past. SOCIAL HISTORY: The patient is an 82-year-old male patient from [facility], financially sustained through [employer]. MENTAL STATUS EXAMINATION: The patient is alert and oriented to person and place. The patient's mood is dysphoric. Affect is blunted. Thought process is disorganized. Poor attention and concentration. Poor insight, judgment, and impulse control. DIAGNOSES: AXIS I: Paranoid schizophrenia. AXIS II: Deferred. AXIS III: Per History and Physical. PLAN: This clinician assessed the patient, assessed the patient's confusion, assessed the patient's mental status, encouraging the patient to participate in treatment milieu, working on identifying possible . Continue with behavioral management. This clinician has reviewed the patient's chart and discussed the treatment with treatment team. Saige Calderon PsyD. DR: Rashid JOB#: [id number] CC:
[2018-05-17] MEDS: Albuterol/Ipratropium 3ml neb HHN SCH ×3 (01:33→13:10)
[2018-05-17] MEDS: Acetylcysteine 20% Soln 4ml HHN SCH ×3 (01:33→13:10)
[2018-05-17 04:00] VITALS: BP 131/88
[2018-05-17] MEDS: Piperacillin/Tazobactam 3.375 GM in NS 110 ML IVPB SCH (05:43)
[2018-05-17] MEDS ORDERED: Levothyroxine 25mcg tab ORAL SCH (06:30)
--- NOTE | 2018-05-17 07:32 | Pulmonology Progress Note ---
Assessment/Plan Assessment/Plan ASSESSMENT pneumonia with Staph aureus high aspiration risk emphysema severe protein calorie malnutrition hypothyroidism anemia dysphagia schizoaffective disorder PLAN OF CARE gentle IVF abx, blood cx negative, sputum + Staph aureus venous duplex no acute DVT, DVT prophylaxis O2 titrate to keep pulse ox above 92% pulmonary toilet, continue Theophylline antitussive prn TSH WNL, continue current dose of levothyroxine BSSE with high aspiration risk strict aspiration/ reflux precautions dietary eval re nutritional supplement to improve protein calorie malnutrition monitor H&H with goal to keep hemoglobin above 7, remain at baseline consider psych eval as per PMD discretion psych follows, continue current psych meds for now Subjective Allergies: Coded Allergies: No Known Allergies (Unverified , 05/14/18) Subjective leukocytosis resolved, HH at baseline Objective Last 24 Hour Vital Signs Date Time Temp Pulse Resp B/P (MAP) Pulse Ox O2 Delivery O2 Flow Rate FiO2 05/17/18 07:27 94 18 99 Room Air 21 05/17/18 07:20 90 18 98 Room Air 21 05/17/18 04:00 98.6 88 18 131/88 (102) 98 05/17/18 01:36 96 20 99 Room Air 21 05/17/18 01:25 96 20 97 Room Air 21 05/17/18 00:00 99.0 93 20 121/80 (94) 96 05/16/18 20:14 91 20 99 Room Air 21 05/16/18 20:07 87 20 98 Room Air 21 05/16/18 20:00 Room Air Room Air 05/16/18 20:00 98.3 91 18 145/77 (99) 97 05/16/18 16:00 98.8 92 20 119/61 (80) 97 05/16/18 16:00 Room Air Room Air 05/16/18 12:57 Room Air 05/16/18 12:57 Room Air 05/16/18 12:00 97.2 86 20 120/61 (80) 97 05/16/18 12:00 78 05/16/18 12:00 Room Air Room Air 05/16/18 08:00 Room Air Room Air 05/16/18 08:00 97.3 86 20 111/64 (80) 95 05/16/18 07:47 82 Intake and Output 05/16/18 05/17/18 19:00 07:00 Intake Total 1407.416 ml 820 ml Balance 1407.416 ml 820 ml Intake Oral 250 ml IV Total 1157.416 ml 820 ml # Voids 1 2 General Appearance: no acute distress HEENT: normocephalic, atraumatic, anicteric Respiratory/Chest: lungs clear - with moderate air exchange , no accessory muscle use Cardiovascular: normal rate Abdomen: normal bowel sounds, soft, non tender, non distended Extremities: no edema Neurologic/Psychiatric: abnormal gait, alert, responsive Microbiology Date/Time Source Procedure Growth Status 05/14/18 23:30 Blood Blood Culture - Preliminary NO GROWTH AFTER 24 HOURS Resulted 05/14/18 23:15 Blood Blood Culture - Preliminary NO GROWTH AFTER 24 HOURS Resulted 05/15/18 11:30 Sputum Gram Stain - Final Resulted 05/15/18 11:30 Sputum Culture - Preliminary Staphylococcus Aureus Usual Respiratory Bradny Resulted 05/15/18 00:03 Rectum VRE Culture - Final NO VANCOMYCIN RESISTANT ENTEROCOCCUS ... Complete 05/15/18 00:03 Rectum - Final NO CARBAPENEM-RESISTANT ENTEROBACTERI... Complete Laboratory Tests 05/17/18 06:10: White Blood Count [Pending], Red Blood Count [Pending], Hemoglobin [Pending], Hematocrit [Pending], Mean Corpuscular Volume [Pending], Mean Corpuscular Hemoglobin [Pending], Mean Corpuscular Hemoglobin Concent [Pending], Red Cell Distribution Width [Pending], Platelet Count [Pending], Mean Platelet Volume [ Pending], Neutrophils (%) (Auto) [Pending], Lymphocytes (%) (Auto) [Pending], Monocytes (%) (Auto) [Pending], Eosinophils (%) (Auto) [Pending], Basophils (%) (Auto) [Pending], Sodium Level [Pending], Potassium Level [Pending], Chloride Level [Pending], Carbon Dioxide Level [Pending], Blood Urea Nitrogen [Pending], Creatinine [Pending], Estimat Glomerular Filtration Rate [Pending], Glucose Level [Pending], Calcium Level [Pending] Current Medications Medications (Trade) Dose Ordered Sig/Tiara Route PRN Reason Start Time Stop Time Status Last Admin Dose Admin Acetylcysteine (Mucomyst) 100 mg Q6HRT HHN 05/16/18 19:00 06/15/18 18:59 05/17/18 07:24 Albuterol/ Ipratropium (Albuterol/ Ipratropium) 3 ml Q6HRT HHN 05/16/18 19:00 05/20/18 12:59 05/17/18 07:24 Dextrose (Dextrose 50%) 25 ml Q30M PRN IV Hypoglycemia 05/16/18 16:15 06/14/18 04:44 Dextrose (Dextrose 50%) 50 ml Q30M PRN IV Hypoglycemia 05/16/18 16:15 06/14/18 04:44 Dextrose/Sodium Chloride 1,000 ml @ 60 mls/hr [id number] IV 05/16/18 16:15 06/14/18 04:59 05/16/18 17:57 Docusate Sodium (Colace) 100 mg DAILY ORAL 05/17/18 09:00 06/14/18 08:59 Heparin Sodium (Porcine) (Heparin 5000 units/ml) 5,000 units EVERY 12 HOURS SUBQ 05/16/18 21:00 06/14/18 13:59 05/16/18 21:12 Levothyroxine Sodium (Synthroid) 25 mcg DAILY@0630 ORAL 05/17/18 06:30 06/14/18 06:29 05/17/18 05:44 Loratadine (Claritin 10mg) 10 mg DAILY ORAL 05/17/18 09:00 06/14/18 08:59 Olanzapine (ZyPREXA) 2.5 mg TID ORAL 05/16/18 18:00 06/14/18 08:59 05/16/18 17:57 Piperacillin Sod/ Tazobactam Sod 3.375 gm/Sodium Chloride 110 ml @ 220 mls/hr EVERY 8 HOURS IVPB 05/16/18 22:00 05/22/18 13:59 05/17/18 05:43 Promethazine HCl/ Codeine (Phenergan with Codeine) 5 ml Q4H PRN ORAL For Cough 05/16/18 17:00 06/14/18 16:59 Theophylline (Jac-Dur) 100 mg EVERY 12 HOURS ORAL 05/16/18 21:00 06/14/18 20:59 05/16/18 21:11 Valproic Acid (Depakene) 250 mg TWICE A DAY ORAL 05/16/18 18:00 06/14/18 08:59 05/16/18 17:57 Vancomycin HCl (Vanco rx to dose) 1 ea DAILY PRN MISC Per rx protocol 05/16/18 17:00 06/15/18 16:59 Vancomycin HCl 1 gm/Dextrose 275 ml @ 183.708 mls/hr Q24H IVPB 05/17/18 12:00 05/21/18 11:59 Brynn Pan NP May 17, 2018 07:32
[2018-05-17 07:39] LABS: ANION GAP 8 mmol/L (5-15); BASOPHILS % (AUTO) 1.6 % (0.0-2.0); BLOOD UREA NITROGEN 9 mg/dL (7-18); CALCIUM 9.3 MG/DL (8.5-10.1); CARBON DIOXIDE 27 MMOL/L (21-32); CHLORIDE 104 MMOL/L (98-107); CREATININE 0.7 MG/DL (0.55-1.30); EOSINOPHILS % (AUTO) 1.2 % (0.0-3.0); HEMATOCRIT 31.7 % (42.0-52.0); HEMOGLOBIN 10.6 G/DL (14.2-18.0); LYMPHOCYTES % (AUTO) 15.4 % (20.0-45.0); MEAN CORPUSCULAR VOLUME 86 FL (80-99); MONOCYTES % (AUTO) 8.8 % (1.0-10.0); PLATELET COUNT 296 K/UL (150-450); POTASSIUM 4.1 MMOL/L (3.5-5.1); RED BLOOD COUNT 3.69 M/UL (4.70-6.10); RED CELL DISTRIBUTION WIDTH 14.4 % (11.6-14.8); SODIUM 139 MMOL/L (136-145); WHITE BLOOD COUNT 7.8 K/UL (4.8-10.8)
[2018-05-17 08:00] VITALS: BP 136/66
--- NOTE | 2018-05-17 08:00 | General Progress Note ---
Assessment/Plan Problem List: (1) UTI (urinary tract infection) ICD Codes: N39.0 - Urinary tract infection, site not specified SNOMED: 82438629 (2) Sepsis ICD Codes: A41.9 - Sepsis, unspecified organism SNOMED: 07774846 (3) Anemia ICD Codes: D64.9 - Anemia, unspecified SNOMED: 061627803 (4) Hypothyroid ICD Codes: E03.9 - Hypothyroidism, unspecified SNOMED: 18246781 (5) Pneumonia ICD Codes: J18.9 - Pneumonia, unspecified organism SNOMED: 771646911 (6) Schizo affective schizophrenia ICD Codes: F25.0 - Schizoaffective disorder, bipolar type SNOMED: 390521814 (7) Psychiatric disorder ICD Codes: F99 - Mental disorder, not otherwise specified SNOMED: 36599279, 193829887 (8) Hypothyroid ICD Codes: E03.9 - Hypothyroidism, unspecified SNOMED: 96015055 (9) Severe protein-calorie malnutrition ICD Codes: E43 - Unspecified severe protein-calorie malnutrition SNOMED: 478911426 Status: stable, progressing Assessment/Plan o2 pulm tx abx psyc tx dc if clear Subjective Constitutional: Reports: weakness Allergies: Coded Allergies: No Known Allergies (Unverified , 05/14/18) All Systems: reviewed and negative except above Subjective sleepy calm confused Objective Last 24 Hour Vital Signs Date Time Temp Pulse Resp B/P (MAP) Pulse Ox O2 Delivery O2 Flow Rate FiO2 05/17/18 07:27 94 18 99 Room Air 21 05/17/18 07:20 90 18 98 Room Air 21 05/17/18 04:00 98.6 88 18 131/88 (102) 98 05/17/18 01:36 96 20 99 Room Air 21 05/17/18 01:25 96 20 97 Room Air 21 05/17/18 00:00 99.0 93 20 121/80 (94) 96 05/16/18 20:14 91 20 99 Room Air 21 05/16/18 20:07 87 20 98 Room Air 21 05/16/18 20:00 Room Air Room Air 05/16/18 20:00 98.3 91 18 145/77 (99) 97 05/16/18 16:00 98.8 92 20 119/61 (80) 97 05/16/18 16:00 Room Air Room Air 05/16/18 12:57 Room Air 05/16/18 12:57 Room Air 05/16/18 12:00 97.2 86 20 120/61 (80) 97 05/16/18 12:00 78 05/16/18 12:00 Room Air Room Air 05/16/18 08:00 Room Air Room Air 05/16/18 08:00 97.3 86 20 111/64 (80) 95 Intake and Output 05/16/18 05/17/18 19:00 07:00 Intake Total 1407.416 ml 820 ml Balance 1407.416 ml 820 ml Intake Oral 250 ml IV Total 1157.416 ml 820 ml # Voids 1 2 Laboratory Tests 05/17/18 06:10: White Blood Count 7.8, Red Blood Count 3.69L, Hemoglobin 10.6L, Hematocrit 31.7L , Mean Corpuscular Volume 86, Mean Corpuscular Hemoglobin 28.6, Mean Corpuscular Hemoglobin Concent 33.4, Red Cell Distribution Width 14.4, Platelet Count 296, Mean Platelet Volume 6.4L, Neutrophils (%) (Auto) 73.0, Lymphocytes ( %) (Auto) 15.4L, Monocytes (%) (Auto) 8.8, Eosinophils (%) (Auto) 1.2, Basophils (%) (Auto) 1.6, Sodium Level 139, Potassium Level 4.1, Chloride Level 104, Carbon Dioxide Level 27, Anion Gap 8, Blood Urea Nitrogen 9, Creatinine 0.7 , Estimat Glomerular Filtration Rate , Glucose Level 85, Calcium Level 9.3 Height (Feet): 6 Weight (Pounds): 160 General Appearance: confused EENT: normal ENT inspection Neck: normal alignment Cardiovascular: normal peripheral pulses, normal rate, regular rhythm Respiratory/Chest: chest wall non-tender, lungs clear, normal breath sounds Abdomen: normal bowel sounds, non tender, soft Extremities: normal inspection Edema: no edema noted Arm (L), no edema noted Arm (R), no edema noted Leg (L), no edema noted Leg (R), no edema noted Pedal (L), no edema noted Pedal (R), no edema noted Generalized Neurologic: motor weakness Skin: normal pigmentation, warm/dry Rell Tovar DO May 17, 2018 07:59
[2018-05-17] MEDS ORDERED: Docusate 100mg cap ORAL SCH (09:00)
[2018-05-17] MEDS: OLANZapine 2.5mg tab ORAL SCH ×2 (09:53→12:54)
[2018-05-17] MEDS: Theophylline ER 100mg ORAL SCH (09:53)
[2018-05-17] MEDS: Heparin 5000 units/ml inj SUBQ SCH (09:54)
[2018-05-17] MEDS: D5 1/2NS 1,000 ML IV SCH (09:54)
--- NOTE | 2018-05-17 09:54 | Infectious Diseases Prog Note ---
Assessment/Plan Assessment/Plan ASSESSMENT: The patient is an 82-year-old male with: Leukocytosis, Sp Fever (prior to the admission), sp Possible pneumonia Scx : Staph A ( final result :P ) Rule out probable bacteremia COPD Hypothyroidism Schizophrenia Dementia History of CKD Anemia PLAN: Cont pt on the patient on vancomycin and Zosyn d# 3 ok to DC on IV Vanco x 10 d and Rocephin x 4 days Monitor CBC. Monitor BMP. Monitor chest x-ray. Monitor cultures (blood, urine, and sputum). care was Holli RN Subjective Allergies: Coded Allergies: No Known Allergies (Unverified , 05/14/18) Subjective probable DC to SNF today Objective Vital Signs Last 24 Hour Vital Signs Date Time Temp Pulse Resp B/P (MAP) Pulse Ox O2 Delivery O2 Flow Rate FiO2 05/17/18 07:27 94 18 99 Room Air 21 05/17/18 07:20 90 18 98 Room Air 21 05/17/18 04:00 98.6 88 18 131/88 (102) 98 05/17/18 01:36 96 20 99 Room Air 21 05/17/18 01:25 96 20 97 Room Air 21 05/17/18 00:00 99.0 93 20 121/80 (94) 96 05/16/18 20:14 91 20 99 Room Air 21 05/16/18 20:07 87 20 98 Room Air 21 05/16/18 20:00 Room Air Room Air 05/16/18 20:00 98.3 91 18 145/77 (99) 97 05/16/18 16:00 98.8 92 20 119/61 (80) 97 05/16/18 16:00 Room Air Room Air 05/16/18 12:57 Room Air 05/16/18 12:57 Room Air 05/16/18 12:00 97.2 86 20 120/61 (80) 97 05/16/18 12:00 78 05/16/18 12:00 Room Air Room Air Height (Feet): 6 Weight (Pounds): 160 HEENT: anicteric Respiratory/Chest: normal breath sounds Cardiovascular: normal rate Abdomen: soft, non tender Microbiology Date/Time Source Procedure Growth Status 05/14/18 23:30 Blood Blood Culture - Preliminary NO GROWTH AFTER 24 HOURS Resulted 05/14/18 23:15 Blood Blood Culture - Preliminary NO GROWTH AFTER 24 HOURS Resulted 05/15/18 11:30 Sputum Gram Stain - Final Resulted 05/15/18 11:30 Sputum Culture - Preliminary Staphylococcus Aureus Usual Respiratory Brandy Resulted 05/15/18 00:03 Rectum VRE Culture - Final NO VANCOMYCIN RESISTANT ENTEROCOCCUS ... Complete 05/15/18 00:03 Rectum - Final NO CARBAPENEM-RESISTANT ENTEROBACTERI... Complete Laboratory Tests Test 05/17/18 06:10 White Blood Count 7.8 K/UL (4.8-10.8) Red Blood Count 3.69 M/UL (4.70-6.10) L Hemoglobin 10.6 G/DL (14.2-18.0) L Hematocrit 31.7 % (42.0-52.0) L Mean Corpuscular Volume 86 FL (80-99) Mean Corpuscular Hemoglobin 28.6 PG (27.0-31.0) Mean Corpuscular Hemoglobin Concent 33.4 G/DL (32.0-36.0) Red Cell Distribution Width 14.4 % (11.6-14.8) Platelet Count 296 K/UL (150-450) Mean Platelet Volume 6.4 FL (6.5-10.1) L Neutrophils (%) (Auto) 73.0 % (45.0-75.0) Lymphocytes (%) (Auto) 15.4 % (20.0-45.0) L Monocytes (%) (Auto) 8.8 % (1.0-10.0) Eosinophils (%) (Auto) 1.2 % (0.0-3.0) Basophils (%) (Auto) 1.6 % (0.0-2.0) Sodium Level 139 MMOL/L (136-145) Potassium Level 4.1 MMOL/L (3.5-5.1) Chloride Level 104 MMOL/L (98-107) Carbon Dioxide Level 27 MMOL/L (21-32) Anion Gap 8 mmol/L (5-15) Blood Urea Nitrogen 9 mg/dL (7-18) Creatinine 0.7 MG/DL (0.55-1.30) Estimat Glomerular Filtration Rate mL/min (>60) Glucose Level 85 MG/DL (74-106) Calcium Level 9.3 MG/DL (8.5-10.1) Current Medications Medications (Trade) Dose Ordered Sig/Tiara Route PRN Reason Start Time Stop Time Status Last Admin Dose Admin Acetylcysteine (Mucomyst) 100 mg Q6HRT N 05/16/18 19:00 06/15/18 18:59 05/17/18 07:24 Albuterol/ Ipratropium (Albuterol/ Ipratropium) 3 ml Q6HRT N 05/16/18 19:00 05/20/18 12:59 05/17/18 07:24 Dextrose (Dextrose 50%) 25 ml Q30M PRN IV Hypoglycemia 05/16/18 16:15 06/14/18 04:44 Dextrose (Dextrose 50%) 50 ml Q30M PRN IV Hypoglycemia 05/16/18 16:15 06/14/18 04:44 Dextrose/Sodium Chloride 1,000 ml @ 60 mls/hr [id number] IV 05/16/18 16:15 06/14/18 04:59 05/16/18 17:57 Docusate Sodium (Colace) 100 mg DAILY ORAL 05/17/18 09:00 06/14/18 08:59 Heparin Sodium (Porcine) (Heparin 5000 units/ml) 5,000 units EVERY 12 HOURS SUBQ 05/16/18 21:00 06/14/18 13:59 05/16/18 21:12 Levothyroxine Sodium (Synthroid) 25 mcg DAILY@0630 ORAL 05/17/18 06:30 06/14/18 06:29 05/17/18 05:44 Loratadine (Claritin 10mg) 10 mg DAILY ORAL 05/17/18 09:00 06/14/18 08:59 Olanzapine (ZyPREXA) 2.5 mg TID ORAL 05/16/18 18:00 06/14/18 08:59 05/16/18 17:57 Piperacillin Sod/ Tazobactam Sod 3.375 gm/Sodium Chloride 110 ml @ 220 mls/hr EVERY 8 HOURS IVPB 05/16/18 22:00 05/22/18 13:59 05/17/18 05:43 Promethazine HCl/ Codeine (Phenergan with Codeine) 5 ml Q4H PRN ORAL For Cough 05/16/18 17:00 06/14/18 16:59 Theophylline (Jac-Dur) 100 mg EVERY 12 HOURS ORAL 05/16/18 21:00 06/14/18 20:59 05/16/18 21:11 Valproic Acid (Depakene) 250 mg TWICE A DAY ORAL 05/16/18 18:00 06/14/18 08:59 05/16/18 17:57 Vancomycin HCl (Vanco rx to dose) 1 ea DAILY PRN MISC Per rx protocol 05/16/18 17:00 06/15/18 16:59 Vancomycin HCl 1 gm/Dextrose 275 ml @ 183.708 mls/hr Q24H IVPB 05/17/18 12:00 05/21/18 11:59 Wale Driver MD May 17, 2018 09:54
[2018-05-17] MEDS ORDERED: vancomycin iv IV (09:58)
[2018-05-17] MEDS ORDERED: ROCEPHIN250 MG IV (09:59)
[2018-05-17] MEDS ORDERED: D5 1/2NS 1000ml IV ONE (10:42)
[2018-05-17] MEDS ORDERED: Tubing IV Secondary IV ONE (10:42)
[2018-05-17] MEDS ORDERED: NS 275ml ONE (10:42)
[2018-05-17 12:00] VITALS: BP 122/61
[2018-05-17] MEDS ORDERED: acetylcysteine (12:00)
[2018-05-17] MEDS ORDERED: Vancomycin 1 GM in D5W 275 ML IVPB SCH ×2 (12:00→12:30)
[2018-05-17] MEDS ORDERED: MUCOMYST 20% HHN (12:02)
[2018-05-17] MEDS ORDERED: DUONEB 0.5-3(2.53 ML HHN (12:03)
--- NOTE | 2018-05-19 09:29 | Discharge Summary ---
Discharge Summary Discharge Summary _ DATE OF ADMISSION: 05/14/2018 DATE OF DISCHARGE: 05/17/2018 REASON FOR ADMISSION: 82 years old male with past medical history of COPD, hypothyroidism , psychiatric disorder ,was sent from the halfway facility with chief complaint of fever. Patient also noted difficulty breathing with increased work of breathing. Patient was confused and unable to provide information. Upon evaluation in emergency department, patient was afebrile ,however noted hypotension. Pulse oximetry was stable on room air. Laboratory workup revealed leukocytosis with WBC 17.1, hemoglobin 11.3 , hematocrit 33.9. Stable renal parameters and electrolytes. Lactic acid 1.5. Troponin negative. Pro BNP 335. ECG revealed normal sinus rhythm, no acute ischemic changes. Albumin 2.7. Chest x-ray showed probable right lower lobe infiltrate. Urinalysis revealed no evidence of UTI. Patient admitted with diagnoses of pneumonia, high aspiration risk, emphysema , hypothyroidism, severe protein calorie malnutrition, psychiatric disorder. CONSULTANTS: pulmonary Dr. Miller ID specialist Dr. Villa lepe [facility]. [facility] COURSE: Patient initially admitted to [facility]. Blood pressure was clsoely monitored. Patient started on gentle IV hydration and broad spectrum antibiotics. Blood culture were negative , sputum culture revealed Staph aureus . Antibiotic regimen optimized as per ID specialist recommendations. Venous duplex bilateral lower extremity revealed no evidence of acute DVT. DVT prophylaxis provided. Supplemental oxygen provided and titrated to keep pulse oximetry above 92%. Pulmonary toilet provided as needed. Theophylline was continued. Antitussive provided as needed. TSH was within normal limits. Current dose of levothyroxine was continued. Bedside swallow evaluation revealed high aspiration risk. Diet provided as per speech therapist recommendations with strict aspiration / reflux precautions. Nutritional recommendations implemented in plan of care to improve nutritional status. Hemoglobin and hematocrit were closely monitored with goal to keep hemoglobin above 7. Counts remained at baseline. Supportive care provided. Bowel regimen instituted. Psychiatric medication regimen resumed. Patient clinically stabilized : afebrile ,leukocytosis resolved,hemodynamically stable. Patient was discharged to halfway facility for continuation of care ; complete antibiotic course as outlined in medication reconciliation list. FINAL DIAGNOSES: Pneumonia with Staph aureus High aspiration risk Emphysema Severe protein calorie malnutrition Dysphagia Hypothyroidism Anemia Paranoid schizophrenia DISCHARGE MEDICATIONS: See Medication Reconciliation list. DISCHARGE INSTRUCTIONS: Patient was discharged to the halfway facility. Follow up with medical doctor at the facility. Brynn Pan NP May 19, 2018 09:29
--- NOTE | 2018-05-19 12:20 | Diagnostic Imaging Report ---
APPROVED REPORT CPT Code: 71727 Present Symptoms Comments: Pain BILATERAL: Imaging reveals a patent deep venous system bilaterally. There is no evidence of thrombus within the femoral, popliteal or tibial segments. The greater saphenous veins are also within normal limits. Doppler indicates normal spontaneous flow within these segments.
== END 2018-05-17 14:00 | DRG 177 ==
LOC: EDBD 22:49 → EDSEX 22:49 → EMR 23:29 → 2W 23:56 → EDBEDREQSVC 05-15 00:16 → EDBEDREQ 05-15 00:17 → 4E 05-16 16:14
DX: J15.211 Pneumonia due to Methicillin susceptible Staphylococcus aureus (principal); E43 Unspecified severe protein-calorie malnutrition; F20.0 Paranoid schizophrenia; Z68.1 Body mass index [BMI] 19.9 or less, adult; J43.9 Emphysema, unspecified; R13.10 Dysphagia, unspecified; E03.9 Hypothyroidism, unspecified; D64.9 Anemia, unspecified; F03.90 Unspecified dementia, unspecified severity, without behavioral disturbance, psychotic disturbance, mood disturbance, and anxiety
CPT/HCPCS: 36415; 71045; 80048; 80053; 80164; 80202; 81003; 82550; 82553; 82962; 83605; 83735; 83880; 84100; 84439; 84443; 84484; 85025; 85651; 86140; 87040; 87070; 87081; 87086; 87181; 87205; 93005; 93970; 94640; 94664; 96365; 96367; 97802; 99285; J7620

== ENCOUNTER 2019-05-09 23:34 | Inpatient (IN) | payer MEDICARE, OTHER ==
[~2019-05-09] VITALS: Ht 162.6 cm; Wt 68.7 kg
[~2019-05-09 23:34] MED LIST: COLACE100 MG ORAL; DEPAKENE L250 MG/5 M GT; DUONEB 0.5-3(2.53 ML HHN; LORATADINE10 M2 PO; MUCOMYST 20% HHN; ROCEPHIN250 MG IV; SYNTHROID25 MCG ORAL; ZYPREXA2.5 MG ORAL; acetylcysteine; vancomycin iv IV
--- NOTE | 2019-05-09 23:37 | NUR ---
ED Nurse Note: Pt brought in by ambulance from [facility], [place], staff reporting pt with fever of 103, gave tylenol. Pt currently 97.7 auxil. Pt is awake and oriented to self
[2019-05-09 23:45] VITALS: BP 99/61
[2019-05-09] MEDS ORDERED: LORATADINE10 M2 PO (23:49)
[2019-05-09] MEDS ORDERED: LEVOTHYROXINE75 MCG ORAL (23:49)
[2019-05-09] MEDS ORDERED: DUONEB 0.5-3(2.53 ML HHN (23:49)
[2019-05-09] MEDS ORDERED: COLACE100 MG ORAL (23:49)
[2019-05-09] MEDS ORDERED: VALPROIC A250 MG/5 M PO (23:49)
[2019-05-09] MEDS ORDERED: NAMENDA5 MG ORAL (23:49)
[2019-05-09] MEDS ORDERED: THEO-DUR200 MG ORAL (23:49)
[2019-05-09] MEDS ORDERED: MVI PO (23:49)
[2019-05-09] MEDS ORDERED: ACIDOPHILUS1 EACH PO (23:49)
--- NOTE | 2019-05-09 23:59 | Emergency Room Report ---
History of Present Illness General Chief Complaint: Fever Source: Patient, Medical Record Present Illness HPI This is an 83-year-old male coming from [facility]. He presents with chief complaint is altered mental status and fever. He has multiple medical problem. Fever started today. He was given Tylenol prior to arrival. Unable to get any other history from him because he is nonverbal right now. Patient history is from [facility] note. Allergies: Coded Allergies: No Known Allergies (Unverified , 05/14/18) Patient History Past Medical History: see triage record, old chart reviewed Past Surgical History: other Pertinent Family History: none Social History: Denies: smoking Immunizations: other Reviewed Nursing Documentation: PMH: Agreed; PSxH: Agreed Nursing Documentation-PMH Hx Asthma: Yes Hx COPD: Yes Hx Cancer: No Hx Gastrointestinal Problems: Yes - malnutrition, DYSPHAGIA Hx Dialysis: No - CKD Hx Neurological Problems: Yes Hx Dementia: Yes - without behavioral disturbance Review of Systems Constitutional: Reports: fever All Other Systems: limited - secondary to condition Physical Exam Vital Signs Date Time Temp Pulse Resp B/P (MAP) Pulse Ox O2 Delivery O2 Flow Rate FiO2 05/09/19 23:29 97.9 93 17 99/61 (74) 92 Room Air Vitals with hypotension Sp02 EP Interpretation: reviewed, normal General Appearance: Chronically Ill, Stupor Head: normocephalic, atraumatic Eyes: bilateral eye PERRL, bilateral eye EOMI ENT: hearing grossly normal, dry mucus membranes Neck: full range of motion, supple, no meningismus Respiratory: chest non-tender, lungs clear, normal breath sounds Cardiovascular #1: regular rate, rhythm, no murmur Gastrointestinal: normal bowel sounds, non tender, no mass, no organomegaly, no bruit, non-distended Musculoskeletal: back normal, other - contracted Psychiatric: mood/affect normal Procedures Critical Care Time Critical Care Time Critical care is mandated in this patient who presented with sepsis from pneumonia. Patient require my urgent intervention to attenuate the risks of metabolic collapse which may lead to cardiovascular collapse and . Critical care time is 35 minutes excluding any reportable procedure. Critical care time included evaluation, multiple reevaluation, looking at old charts, interpreting laboratory and diagnostic data, discussing case with patient and family and consultants, and charting. Medical Decision Making Diagnostic Impression: Primary Impression: Sepsis Qualified Codes: A41.9 - Sepsis, unspecified organism Additional Impressions: HCAP (healthcare-associated pneumonia) Anemia Qualified Codes: D64.9 - Anemia, unspecified Acute metabolic encephalopathy ER Course Patient with sepsis secondary to healthcare associated pneumonia. Wide spectrum antibiotics given. Mental status improved with IV hydration and IV antibiotics. Will admit for further work-up. I contacted Dr. Tovar for admission. EKG Diagnostic Results Rate: normal Rhythm: NSR ST Segments: no acute changes Rhythm Strip Diag. Results EP Interpretation: yes Rate: 90 Rhythm: NSR, no PVC's, no ectopy Chest X-Ray Diagnostic Results Chest X-Ray Diagnostic Results : Chest X-Ray Ordered: Yes # of Views/Limited/Complete: 1 View Indication: Shortness of Breath EP Interpretation: Yes Interpretation: no effusion, no pneumothorax, other - RLL infiltrate Impression: Other - RLL infiltrate Electronically Signed by: Mauricio Mao MD Last Vital Signs Date Time Temp Pulse Resp B/P (MAP) Pulse Ox O2 Delivery O2 Flow Rate FiO2 05/09/19 23:29 97.9 93 17 99/61 (74) 92 Room Air Status: improved Disposition: ADMITTED INPATIENT Condition: Serious Mauricio Mao MD May 09, 2019 23:59
[2019-05-10] MEDS ORDERED: Sodium Chloride 1,900 ML IVLG ONE
[2019-05-10 00:29] LABS: ANION GAP 9 mmol/L (5-15); BASOPHILS % (AUTO) 1.2 % (0.0-2.0); BLOOD UREA NITROGEN 21 mg/dL (7-18); CALCIUM 8.9 MG/DL (8.5-10.1); CARBON DIOXIDE 25 MMOL/L (21-32); CHLORIDE 105 MMOL/L (98-107); CREATININE 1.2 MG/DL (0.55-1.30); EOSINOPHILS % (AUTO) 0.1 % (0.0-3.0); HEMATOCRIT 31.5 % (42.0-52.0); HEMOGLOBIN 10.7 G/DL (14.2-18.0); MEAN CORPUSCULAR VOLUME 84 FL (80-99); MONOCYTES % (AUTO) 8.3 % (1.0-10.0); NEUTROPHILS % (AUTO) 82.4 % (45.0-75.0); PLATELET COUNT 201 K/UL (150-450); POTASSIUM 4.1 MMOL/L (3.5-5.1); RED BLOOD COUNT 3.75 M/UL (4.70-6.10); RED CELL DISTRIBUTION WIDTH 14.6 % (11.6-14.8); SODIUM 139 MMOL/L (136-145); WHITE BLOOD COUNT 10.7 K/UL (4.8-10.8)
[2019-05-10 00:43] LABS: ALANINE AMINOTRANSFERASE 18 U/L (12-78); ALBUMIN 3.1 G/DL (3.4-5.0); ALBUMIN/GLOBULIN RATIO 0.8 (1.0-2.7); ALKALINE PHOSPHATASE 90 U/L (46-116); ASPARTATE AMINO TRANSFERASE 13 U/L (15-37); BILIRUBIN,TOTAL 0.3 MG/DL (0.2-1.0); CKMB 0.9 NG/ML (0.0-3.6); CREATINE KINASE 120 U/L (26-308)
[2019-05-10] MEDS ORDERED: Cefepime HCl 1 GM in D5W 55 ML IVPB ONE (01:00)
[2019-05-10] MEDS ORDERED: Acetaminophen 650 MG SUPP RECTAL PRN (01:15)
--- NOTE | 2019-05-10 01:20 | Diagnostic Imaging Report ---
EXAM: XR Chest, 1 View CLINICAL HISTORY: SOB TECHNIQUE: Frontal view of the chest. COMPARISON: May 14, 2018. FINDINGS: Cardiac silhouette and pulmonary vascularity are within normal limits allowing for portable technique. Low lung volumes. Right lower lobe infiltrate. No pleural effusions. Chronic interstitial changes. IMPRESSION: Right lower lobe infiltrate, suspicious for pneumonia. No large pleural effusions.
--- NOTE | 2019-05-10 02:15 | NUR ---
TRANSFER TO FLOOR: Patient transferred to as ordered, per Dr brooks. Report given to ADRIÁN Voss . Belongings and medications given to . Family and or S/O informed of transfer.
--- NOTE | 2019-05-10 02:20 | NUR ---
NURSE NOTES: Received report from ADRIÁN Patterson. Pt arrived @0220 from ED. AAO x 1, on room air. Skin is intact. Vitals 88PR, 95% O2, 98.1F, 109/65 BP, 18RR. Assessment done. Pt has no belongings. IV site intact and patent. Pt has condom cath. Swabs done. Pt is on NPO. Meds recon done. Called Dr. Tovar and waiting for call back. Bed locked, lowest position, alarm on, side rails up x 2, call light within reach. Will continue to monitor.
--- NOTE | 2019-05-10 03:00 | NUR ---
NURSE NOTES: RN tried to insert mcgregor but couldn't go through. Condom cath applied. Notified Dr. Tovar and aware it.
[2019-05-10 04:00] VITALS: BP 131/51
--- NOTE | 2019-05-10 04:42 | NUR ---
NURSE NOTES: Received call from Dr. Tovar and said call Dr. Martínez to enter bridging order. RN called ED charge nurse.
--- NOTE | 2019-05-10 06:45 | Consultation ---
DATE OF CONSULTATION: 05/10/2019 CONSULTING PHYSICIAN: Brda Barnes M.D. REFERRING PHYSICIAN: Rell Tovar D.O. HISTORY OF PRESENT ILLNESS: This is an 83-year-old male patient. This patient actually was admitted to the hospital with urinary tract infection. The patient came to the hospital with sepsis and pneumonia. That is the reason why, this patient was admitted here from [facility]. He had altered mental status, fever, and multiple medical problems, but his cognition has declined below his baseline. He is nonverbal on interview, but per halfway, he has had about psychomotor agitation and irritability worsened by his fever and problems with increased altered mental status. PAST MEDICAL HISTORY: As far as the patient's medical history, he has a history of asthma, COPD, some neurological problem, and dysphasia. He has urinary tract infection, hypothyroidism, acute metabolic encephalopathy, anemia, sepsis, fever, dehydration, emphysema, hypothyroidism, and protein-calorie malnutrition. ALLERGIES: No known drug allergies. PSYCHOTROPIC MEDICATIONS ON ADMISSION: Include Namenda 5 mg twice a day as well as Depakote 250 mg twice a day. SUBSTANCE ABUSE HISTORY: The patient has no known history of any drug or alcohol use. FAMILY PSYCHIATRIC HISTORY: Denies. PAIN ASSESSMENT: 09/28 pain. DEVELOPMENTAL PROBLEMS: Denies. SOCIAL HISTORY: This patient is living in [facility]. He is financially supported by [employer] and Medicare at this time. PSYCHIATRIC HISTORY: History of major depressive disorder, severe, recurrent with psychotic features, rule out dementia with psychosis, has been seen by Psychiatry at his halfway. STRENGTHS: He is motivated to get better and has a place to live. WEAKNESSES: He is impulsive. Minimal support system. MENTAL STATUS EXAMINATION: This is an 83-year-old male. Appearance is disheveled. Attitude, irritable and agitated. Affect is flat. Intellect poor. This patient does not know current events, does not know last four presidents. Mood, depressed and anxious. Motor activity, psychomotor agitation. Attention span is poor because he cannot do serial sevens or spell world backwards. Orientation times x2. He is oriented to person and place, not to time and situation. Speech is nonsensical actually on interview. His thought process, disorganized and illogical. Thought content, the patient has auditory hallucinations and paranoid delusions. Perception is poor. Abstract reasoning is poor. This patient does not understand proverbs, only has concrete thinking. Insight is poor. The patient denies suicidal or homicidal thoughts. DIAGNOSIS: Major depressive disorder, severe, recurrent with psychotic features, rule out dementia with psychosis. PLAN: The patient is on Namenda 5 mg twice a day, Ativan 0.5 mg every 6 hours p.r.n. anxiety and agitation, and Depakote 250 mg twice a day and provided him with 20 minutes of reality-based insight-oriented psychotherapy. Followed by Psychiatry throughout his hospital course. Chart was reviewed. Discussed with staff history. Seen and assessed at bedside. Brad Barnes M.D. DR: TIFFANY JOB#: [id number] CC:
--- NOTE | 2019-05-10 07:00 | NUR ---
NURSE NOTES: Left message Dr. Tovar and made him aware bridging order is for 4hrs and . Need admission order. Still waiting for call back.
--- NOTE | 2019-05-10 07:32 | NUR ---
HAND-OFF: Report given to Karine. Al getting admission order from Dr. Tovar. Addendum: 05/10/19 at 0739 by SARAH GUALLPA RN RN NURSE NOTES: Called nursing banana ripening room supervisor Yeny. Dr. Tovar has not given admission orders.
--- NOTE | 2019-05-10 07:42 | NUR ---
NURSE NOTES: pt awake, a/O x 1, calm. Denies pain. mild cough. pts removed IV, will reinsert new IV, pt has condom cath with no output, will notify . call light with within reach, bed alarm on, bed in low position. side rails padded. seizure and fall precaution maintained. will continue to monitor. Addendum: 05/10/19 at 0747 by Niharika Elizabeth RN low grade temp 99F. light cover, ice packs PRN.
[2019-05-10 08:00] VITALS: BP 119/77
[2019-05-10] MEDS ORDERED: Morphine Sulfate 4mg/ml Inj (IV USE ONLY) IVP PRN (08:00)
[2019-05-10] MEDS ORDERED: Albuterol/Ipratropium 3ml neb HHN PRN (08:00)
[2019-05-10] MEDS ORDERED: Miralax 17gm pkt ORAL PRN (08:00)
[2019-05-10] MEDS: Docusate 100mg cap ORAL SCH (08:30)
[2019-05-10] MEDS: Memantine 5 MG TAB ORAL SCH ×2 (08:31→17:21)
[2019-05-10] MEDS: Heparin 5000 units/ml inj SUBQ SCH ×2 (08:34→21:00)
[2019-05-10] MEDS ORDERED: Memantine 5 MG TAB ORAL SCH (09:00)
[2019-05-10] MEDS: Valproic Acid 250mg/5ml Liquid ORAL SCH ×2 (09:08→17:21)
--- NOTE | 2019-05-10 10:06 | NUR ---
RESPIRATORY NOTE: ADRIÁN Bundy requested Duoneb prn for pt due to coughing. Assessed pt for the need of breathing Tx. Pt is awake, alert, no coughing, resting in the bed comfortably, no SOB,RR 20bpm, saturates at 98% on 2L NC 28%FiO2. Rakesh clear diminished breath sounds, no wheezing. pt denied any SOB or pain at this time. No breathing Tx given. Charge nurse Helga made aware. Will continue to monitor pt and give treatment as needed.
[2019-05-10] MEDS: D5 1/2NS 1,000 ML IV SCH (10:30)
[2019-05-10 11:52] VITALS: BP 122/69
--- NOTE | 2019-05-10 12:44 | NUR ---
NURSE NOTES: Bladder scan done after Post void / 300 cc of urine, notified Dr. Carrion, received order to insert mcgregor.
--- NOTE | 2019-05-10 14:30 | History and Physical Report ---
DATE OF ADMISSION: 05/10/2019 TIME SEEN: 8 a.m. CONSULTANTS: 1. Boni Miller M.D. 2. Wale Driver M.D. 3. Brad Barnes M.D. CHIEF COMPLAINT: Shortness of breath, right lower lobe pneumonia, sepsis. BRIEF HISTORY: This is an 83-year-old male from [facility], presented with the above-mentioned diagnosis and some fever. The patient diagnosed with the above, admitted to medical floor for further treatment. Currently, confused in bed, which is baseline, not talking much. REVIEW OF SYSTEMS: Unavailable. PAST MEDICAL HISTORY: Include COPD, epilepsy, hypertension, hypothyroid, CKD, hyperlipidemia, and osteoarthritis. PAST SURGICAL HISTORY: Unknown. MEDICATIONS: Include levothyroxine, cefepime, vancomycin, memantine, valproic, Zofran, morphine, albuterol, and lorazepam. ALLERGIES: Denies. SOCIAL HISTORY: Unable to obtain secondary to the patient's condition. PHYSICAL EXAMINATION: GENERAL: Lethargic in bed, not really responds to questions. VITAL SIGNS: Temperature 98 degrees, pulse 94, respirations 18, blood pressure 131/51. CARDIOVASCULAR: No murmur. LUNGS: Poor air exchange. ABDOMEN: Bowel sounds distant. EXTREMITIES: No cyanosis, clubbing, or edema. NEUROLOGIC: The patient moves all extremities, slightly weak LABORATORY AND DIAGNOSTIC DATA: Labs at this time show hemoglobin and hematocrit 10.7 and 31, otherwise CBC is normal. BMP show BUN 21, glucose 122. Troponin 0.007. Albumin 3.1. ASSESSMENT: 1. Right lower lobe pneumonia. 2. Sepsis. 3. COPD. 4. Epilepsy. 5. Hypertension. 6. Hypothyroid. 7. Malnutrition. 8. CKD. 9. Hyperlipidemia. 10. Anemia. 11. Osteoarthritis. PLAN: 1. O2 and pulmonary treatment. 2. Antibiotics per Infectious Disease. 3. OT, PT, dietary evaluation. 4. Check laboratories in the morning. 5. Resume home medications. 6. We will continue to follow this patient. Rell Tovar D.O. DR: WILLIAMS JOB#: [id number] CC:
--- NOTE | 2019-05-10 14:49 | NUR ---
NURSE NOTES: Unable to insert mcgregor, will notify MD. pts had incontinent of urine x 2. will continue to monitor.
--- NOTE | 2019-05-10 15:08 | NUR ---
Dr. Guy lock MD will call dr. Blackman for consult. will continue to monitor.
[2019-05-10 16:00] VITALS: BP 123/65
--- NOTE | 2019-05-10 16:25 | Consultation ---
History of Present Illness General Date patient seen: May 10, 2019 Chief Complaint: Fever Present Illness HPI 83-year-old male with hx of COPD, HTN, CKD, psychiatric disorder presented with CC of of fever of 103 starting the day of admission. His CXR in [place] showed that he might have LL infiltrate. He is admitted for further evaluation. Allergies: Coded Allergies: No Known Allergies (Unverified , 05/14/18) Medication History Scheduled Docusate Sodium* (Colace*), 100 MG ORAL DAILY, (Reported) Lactobacillus Acidophilus (Acidophilus), 1 EACH PO BID, (Reported) Levothyroxine Sodium* (Levothyroxine Sodium*), 25 MCG ORAL DAILY, (Reported) Loratadine (Loratadine), 10 MG PO QD, (Reported) Memantine Hcl* (Namenda*), 5 MG ORAL TWICE A DAY, (Reported) Theophylline (Theophylline Anhydrous), 100 MG ORAL TWICE A DAY, (Reported) Valproate Sodium (Valproic Acid), 250 MG PO BID, (Reported) [Mvi], 1 TAB PO QD, (Reported) Scheduled PRN Ipratropium/Albuterol Sulfate (DuoNeb 0.5-3(2.5)mg/3ml), 3 ML HHN Q4HR PRN for WHEEZING/SOB, (Reported) Discontinued Medications Ceftriaxone Sod (Rocephin), 1 GM IV DAILY, (Reported) Discontinued Reason: MD discontinued med Docusate Sodium* (Colace*), 100 MG ORAL DAILY, (Reported) Discontinued Reason: MD discontinued med Ipratropium/Albuterol Sulfate (DuoNeb 0.5-3(2.5)mg/3ml), 3 ML HHN Q6HR, ( Reported) Discontinued Reason: MD discontinued med Levothyroxine Sodium* (Synthroid*), 25 MCG ORAL DAILY, (Reported) Discontinued Reason: MD discontinued med Loratadine (Loratadine), 10 MG PO, (Reported) Discontinued Reason: MD discontinued med Olanzapine* (Zyprexa*), 2.5 MG ORAL TID, (Reported) Discontinued Reason: MD discontinued med Valproic Acid (Valproic Acid), 250 MG GT, (Reported) Discontinued Reason: MD discontinued med [acetylcysteine], 20 % Q6HR, (Reported) Discontinued Reason: MD discontinued med [mucomyst 20%], 100 % HHN Q6HR, (Reported) Discontinued Reason: MD discontinued med [vancomycin iv], IV pharmacy to dose, (Reported) Discontinued Reason: MD discontinued med Patient History Healthcare decision maker Resuscitation status Advanced Directive on File Past Medical/Surgical History Past Medical/Surgical History: (1) Emphysema lung (2) Hypothyroid (3) COPD (chronic obstructive pulmonary disease) (4) Psychiatric disorder (5) HTN (hypertension) (6) CKD (chronic kidney disease) Review of Systems All Other Systems: negative except mentioned in HPI Physical Exam General Appearance: WD/WN Lines, tubes and drains: peripheral HEENT: normocephalic, atraumatic, anicteric Neck: non-tender, normal alignment Respiratory/Chest: chest wall non-tender, lungs clear Cardiovascular/Chest: normal peripheral pulses Abdomen: normal bowel sounds Genitourinary/Rectal: normal genital exam Extremities: normal range of motion Skin Exam: normal pigmentation Last 24 Hour Vital Signs Date Time Temp Pulse Resp B/P (MAP) Pulse Ox O2 Delivery O2 Flow Rate FiO2 05/10/19 15:45 Nasal Cannula 2.0 05/10/19 11:52 98.6 92 18 122/69 (86) 93 05/10/19 10:06 81 20 98 Nasal Cannula 2.0 28 05/10/19 10:06 98 Nasal Cannula 2.0 28 05/10/19 09:00 Nasal Cannula 2.0 05/10/19 08:00 99.0 100 20 119/77 (91) 93 05/10/19 04:00 98.0 94 18 131/51 (77) 94 05/10/19 03:37 Room Air 05/10/19 02:15 97.9 89 17 99/61 92 Room Air 05/09/19 23:45 97.9 89 17 99/61 92 Room Air 05/09/19 23:45 93 17 Room Air 05/09/19 23:29 97.9 93 17 99/61 (74) 92 Room Air Intake and Output 05/09/19 05/10/19 19:00 07:00 # Voids 1 Laboratory Tests Test 05/09/19 23:59 White Blood Count 10.7 K/UL (4.8-10.8) Red Blood Count 3.75 M/UL (4.70-6.10) L Hemoglobin 10.7 G/DL (14.2-18.0) L Hematocrit 31.5 % (42.0-52.0) L Mean Corpuscular Volume 84 FL (80-99) Mean Corpuscular Hemoglobin 28.5 PG (27.0-31.0) Mean Corpuscular Hemoglobin Concent 33.9 G/DL (32.0-36.0) Red Cell Distribution Width 14.6 % (11.6-14.8) Platelet Count 201 K/UL (150-450) Mean Platelet Volume 6.5 FL (6.5-10.1) Neutrophils (%) (Auto) 82.4 % (45.0-75.0) H Lymphocytes (%) (Auto) 8.0 % (20.0-45.0) L Monocytes (%) (Auto) 8.3 % (1.0-10.0) Eosinophils (%) (Auto) 0.1 % (0.0-3.0) Basophils (%) (Auto) 1.2 % (0.0-2.0) Sodium Level 139 MMOL/L (136-145) Potassium Level 4.1 MMOL/L (3.5-5.1) Chloride Level 105 MMOL/L (98-107) Carbon Dioxide Level 25 MMOL/L (21-32) Anion Gap 9 mmol/L (5-15) Blood Urea Nitrogen 21 mg/dL (7-18) H Creatinine 1.2 MG/DL (0.55-1.30) Estimat Glomerular Filtration Rate mL/min (>60) Glucose Level 122 MG/DL (74-106) H Lactic Acid Level 1.80 mmol/L (0.4-2.0) Calcium Level 8.9 MG/DL (8.5-10.1) Total Bilirubin 0.3 MG/DL (0.2-1.0) Aspartate Amino Transf (AST/SGOT) 13 U/L (15-37) L Alanine Aminotransferase (ALT/SGPT) 18 U/L (12-78) Alkaline Phosphatase 90 U/L (46-116) Total Creatine Kinase 120 U/L (26-308) Creatine Kinase MB 0.9 NG/ML (0.0-3.6) Creatine Kinase MB Relative Index 0.7 Troponin I 0.007 ng/mL (0.000-0.056) Total Protein 7.0 G/DL (6.4-8.2) Albumin 3.1 G/DL (3.4-5.0) L Globulin 3.9 g/dL Albumin/Globulin Ratio 0.8 (1.0-2.7) L Height (Feet): 5 Height (Inches): 4.00 Weight (Pounds): 139 Medications Current Medications Medications (Trade) Dose Ordered Sig/Tiara Route PRN Reason Start Time Stop Time Status Last Admin Dose Admin Acetaminophen (Tylenol) 650 mg Q4H PRN ORAL FEVER 05/10/19 08:00 06/09/19 07:59 Albuterol/ Ipratropium (Albuterol/ Ipratropium) 3 ml Q4H PRN HHN Shortness of Breath 05/10/19 08:00 05/15/19 07:59 Cefepime HCl 2 gm/ Dextrose 110 ml @ 220 mls/hr Q24H IV 05/11/19 01:00 05/18/19 00:59 Dextrose (Dextrose 50%) 25 ml Q30M PRN IV Hypoglycemia 05/10/19 08:00 06/09/19 07:59 Dextrose (Dextrose 50%) 50 ml Q30M PRN IV Hypoglycemia 05/10/19 08:00 06/09/19 07:59 Dextrose/Sodium Chloride 1,000 ml @ 60 mls/hr [id number] IV 05/10/19 10:30 06/09/19 10:29 05/10/19 10:30 Docusate Sodium (Colace) 100 mg DAILY ORAL 05/10/19 09:00 06/09/19 08:59 05/10/19 08:30 Heparin Sodium (Porcine) (Heparin 5000 units/ml) 5,000 units EVERY 12 HOURS SUBQ 05/10/19 09:00 06/09/19 08:59 05/10/19 08:34 Levothyroxine Sodium (Synthroid) 25 mcg DAILY@0630 ORAL 05/11/19 06:30 06/10/19 06:29 Lorazepam (Ativan) 0.5 mg Q6H PRN ORAL For Anxiety 05/10/19 04:45 05/17/19 04:44 Memantine (Namenda) 5 mg TWICE A DAY ORAL 05/10/19 09:00 06/09/19 08:59 05/10/19 08:31 Morphine Sulfate (Morphine Sulfate) 2 mg Q4H PRN IVP Severe Pain (Pain Scale 7-10) 05/10/19 08:00 05/17/19 07:59 Ondansetron HCl (Zofran) 4 mg Q6H PRN IVP Nausea & Vomiting 05/10/19 08:00 06/09/19 07:59 Polyethylene Glycol (Miralax) 17 gm DAILYPRN PRN ORAL Constipation 05/10/19 08:00 06/09/19 07:59 Valproic Acid (Depakene) 250 mg BID ORAL 05/10/19 09:00 06/09/19 08:59 05/10/19 09:08 Vancomycin HCl (Vanco rx to dose) 1 ea DAILY PRN MISC SEPSIS/PNA 05/10/19 08:30 06/09/19 08:29 Vancomycin HCl 1 gm/Dextrose 275 ml @ 183.3 mls/ hr Q24H IV 05/10/19 23:00 05/15/19 22:59 Assessment/Plan Problem List: (1) Pneumonia ICD Codes: J18.9 - Pneumonia, unspecified organism SNOMED: 567591176 (2) COPD (chronic obstructive pulmonary disease) ICD Codes: J44.9 - Chronic obstructive pulmonary disease, unspecified SNOMED: 80808080 (3) Emphysema lung ICD Codes: J43.9 - Emphysema, unspecified SNOMED: 95257875 (4) CKD (chronic kidney disease) ICD Codes: N18.9 - Chronic kidney disease, unspecified SNOMED: 722041676 (5) Hypothyroid ICD Codes: E03.9 - Hypothyroidism, unspecified SNOMED: 80152148 (6) HCAP (healthcare-associated pneumonia) ICD Codes: J18.9 - Pneumonia, unspecified organism SNOMED: 044129041, 214135603 (7) Schizo affective schizophrenia ICD Codes: F25.0 - Schizoaffective disorder, bipolar type SNOMED: 765944132 Assessment/Plan: respiratory treatment check sputum titrate fiO2 to sat of 92% chest PT check electrolytes Boni Miller MD May 10, 2019 16:25
--- NOTE | 2019-05-10 19:20 | NUR ---
NURSE NOTES: Received report from ADRIÁN Bundy. Pt resting in bed. AAO x 1, on NC 2L/min. IV intact and patent, running D5 1/2 60cc/hr. Seizure precaution and fall precaution maintained. No c/o pain. Bed locked, lowest position, alarm on, side rails up x 2, call light within reach. Will continue to monitor.
--- NOTE | 2019-05-10 19:23 | NUR ---
HAND-OFF: Report given to Shy SAMPSON.
[2019-05-10 20:00] VITALS: BP 117/60
[2019-05-10] MEDS: Vancomycin 1 GM in D5W 275 ML IV SCH (23:54)
[2019-05-11] VITALS: BP 90/52
[2019-05-11] MEDS: D5 1/2NS 1,000 ML IV SCH ×2 (01:26→19:50)
[2019-05-11] MEDS: Cefepime HCl 2 GM in D5W 110 ML IV SCH (01:26)
[2019-05-11 04:00] VITALS: BP 127/54
[2019-05-11] MEDS: Levothyroxine 25mcg tab ORAL SCH (05:53)
[2019-05-11 07:08] LABS: BASOPHILS % (AUTO) 1.2 % (0.0-2.0); HEMATOCRIT 30.8 % (42.0-52.0); HEMOGLOBIN 10.2 G/DL (14.2-18.0); LYMPHOCYTES % (AUTO) 20.1 % (20.0-45.0); MEAN CORPUSCULAR VOLUME 85 FL (80-99); MONOCYTES % (AUTO) 9.9 % (1.0-10.0); NEUTROPHILS % (AUTO) 66.7 % (45.0-75.0); PLATELET COUNT 163 K/UL (150-450); RED BLOOD COUNT 3.62 M/UL (4.70-6.10); RED CELL DISTRIBUTION WIDTH 13.4 % (11.6-14.8); WHITE BLOOD COUNT 5.5 K/UL (4.8-10.8)
[2019-05-11 07:29] LABS: ALBUMIN 2.8 G/DL (3.4-5.0); ANION GAP 8 mmol/L (5-15); BLOOD UREA NITROGEN 12 mg/dL (7-18); CALCIUM 8.6 MG/DL (8.5-10.1); CARBON DIOXIDE 26 MMOL/L (21-32); CHLORIDE 107 MMOL/L (98-107); CREATININE 0.8 MG/DL (0.55-1.30); POTASSIUM 3.9 MMOL/L (3.5-5.1); SODIUM 141 MMOL/L (136-145)
--- NOTE | 2019-05-11 07:31 | NUR ---
NURSE NOTES: pt resting in bed. awake, a/O x 1, calm, mild nonproductive cough. 2L O2 via NC, sat 95-96%. IVF infusing. condom cath in place, draining clear yellow urine. bed in low position, bed alarm on, call light within reach. fall precaution maintained. will continue to monitor.
[2019-05-11 07:32] LABS: ANION GAP 6 mmol/L (5-15); CARBON DIOXIDE 26 MMOL/L (21-32); CHLORIDE 106 MMOL/L (98-107); POTASSIUM 3.7 MMOL/L (3.5-5.1); SODIUM 138 MMOL/L (136-145)
--- NOTE | 2019-05-11 07:37 | NUR ---
HAND-OFF: Report given to ADRIÁN Bundy.
[2019-05-11 07:45] LABS: BLOOD UREA NITROGEN 11 mg/dL (7-18); CALCIUM 8.7 MG/DL (8.5-10.1); CREATININE 0.8 MG/DL (0.55-1.30)
[2019-05-11 08:00] VITALS: BP 116/67
--- NOTE | 2019-05-11 08:33 | General Progress Note ---
Assessment/Plan Problem List: (1) Pneumonia ICD Codes: J18.9 - Pneumonia, unspecified organism SNOMED: 076707122 (2) HTN (hypertension) ICD Codes: I10 - Essential (primary) hypertension SNOMED: 48881436 (3) COPD (chronic obstructive pulmonary disease) ICD Codes: J44.9 - Chronic obstructive pulmonary disease, unspecified SNOMED: 83531902 (4) CKD (chronic kidney disease) ICD Codes: N18.9 - Chronic kidney disease, unspecified SNOMED: 086534248 (5) Osteoarthritis ICD Codes: M19.90 - Unspecified osteoarthritis, unspecified site SNOMED: 159509517 (6) Psychiatric disorder ICD Codes: F99 - Mental disorder, not otherwise specified SNOMED: 64767463, 645631285 (7) Fever ICD Codes: R50.9 - Fever, unspecified SNOMED: 316368845 (8) Severe protein-calorie malnutrition ICD Codes: E43 - Unspecified severe protein-calorie malnutrition SNOMED: 751527918 (9) Hypothyroid ICD Codes: E03.9 - Hypothyroidism, unspecified SNOMED: 21112599 (10) Sepsis ICD Codes: A41.9 - Sepsis, unspecified organism SNOMED: 48816182 Qualifiers: Qualified Codes: A41.9 - Sepsis, unspecified organism Status: unchanged Assessment/Plan: o2 pulm tx abx pt diet eval cbc bmp am aru eval Subjective Constitutional: Reports: weakness Allergies: Coded Allergies: No Known Allergies (Unverified , 05/14/18) All Systems: reviewed and negative except above Subjective sleepy calm Objective Last 24 Hour Vital Signs Date Time Temp Pulse Resp B/P (MAP) Pulse Ox O2 Delivery O2 Flow Rate FiO2 05/11/19 08:18 99 Nasal Cannula 2.0 28 05/11/19 08:18 78 18 99 Nasal Cannula 2.0 28 05/11/19 04:00 97.7 92 19 127/54 (78) 94 05/11/19 01:47 93 20 98 Nasal Cannula 2.0 28 91 20 96 05/11/19 00:00 99.1 100 19 90/52 (65) 95 05/10/19 21:00 Nasal Cannula 2.0 05/10/19 20:00 97.7 94 18 117/60 (79) 96 05/10/19 19:57 96 Nasal Cannula 2.0 28 10/20/19 19:57 92 20 96 Nasal Cannula 2.0 28 05/10/19 16:00 100.1 94 19 123/65 (84) 93 05/10/19 15:45 Nasal Cannula 2.0 05/10/19 11:52 98.6 92 18 122/69 (86) 93 05/10/19 10:06 81 20 98 Nasal Cannula 2.0 28 05/10/19 10:06 98 Nasal Cannula 2.0 28 05/10/19 09:00 Nasal Cannula 2.0 Intake and Output 05/10/19 05/11/19 19:00 07:00 Intake Total 540 ml Output Total 100 ml 1200 ml Balance 440 ml -1200 ml Intake IV Total 540 ml Output Urine Total 100 ml 1200 ml # Voids 3 4 Laboratory Tests 05/11/19 05:05: White Blood Count 5.5, Red Blood Count 3.62L, Hemoglobin 10.2L, Hematocrit 30.8L , Mean Corpuscular Volume 85, Mean Corpuscular Hemoglobin 28.3, Mean Corpuscular Hemoglobin Concent 33.2, Red Cell Distribution Width 13.4, Platelet Count 163, Mean Platelet Volume 6.5, Neutrophils (%) (Auto) 66.7, Lymphocytes (% ) (Auto) 20.1, Monocytes (%) (Auto) 9.9, Eosinophils (%) (Auto) 2.0, Basophils ( %) (Auto) 1.2, Sodium Level 138, Potassium Level 3.7, Chloride Level 106, Carbon Dioxide Level 26, Anion Gap 6, Blood Urea Nitrogen 11, Creatinine 0.8, Estimat Glomerular Filtration Rate , Glucose Level 93, Calcium Level 8.7, Phosphorus Level 3.0, Albumin 2.8L Height (Feet): 5 Height (Inches): 4.00 Weight (Pounds): 139 General Appearance: lethargic EENT: normal ENT inspection Neck: normal alignment Cardiovascular: normal peripheral pulses, normal rate, regular rhythm Respiratory/Chest: chest wall non-tender, lungs clear, normal breath sounds Abdomen: normal bowel sounds, non tender, soft Extremities: normal inspection Edema: no edema noted Arm (L), no edema noted Arm (R), no edema noted Leg (L), no edema noted Leg (R), no edema noted Pedal (L), no edema noted Pedal (R), no edema noted Generalized Neurologic: motor weakness Skin: normal pigmentation, warm/dry Rell Tovar DO May 11, 2019 08:33
--- NOTE | 2019-05-11 08:43 | NUR ---
NURSE NOTES: venous doppler done per order. pt bedrest. pts positive RLE DVT, left message to DR. Tovar. waiting for call back.
--- NOTE | 2019-05-11 09:26 | NUR ---
*-* DISCHARGE PLANNING *-* PATIENT HAS BEEN REFERRED TO: FELA CROSS P: [phone] F: [phone]
[2019-05-11] MEDS: Memantine 5 MG TAB ORAL SCH ×2 (09:37→17:08)
[2019-05-11] MEDS: Eliquis 5mg tablet ORAL SCH ×2 (09:37→17:09)
[2019-05-11] MEDS: Docusate 100mg cap ORAL SCH (09:37)
[2019-05-11] MEDS: Valproic Acid 250mg/5ml Liquid ORAL SCH ×2 (10:47→17:09)
[2019-05-11 12:00] VITALS: BP 118/72
--- NOTE | 2019-05-11 12:11 | Consultation ---
History of Present Illness General Date patient seen: May 11, 2019 Chief Complaint: Fever Present Illness HPI 83-year-old male with hx of COPD, HTN, CKD, psychiatric disorder presented with CC of of fever of 103 starting the day of admission. His CXR in [place] showed that he might have LL infiltrate. He is admitted for further evaluation. Allergies: Coded Allergies: No Known Allergies (Unverified , 05/14/18) Medication History Scheduled Docusate Sodium* (Colace*), 100 MG ORAL DAILY, (Reported) Lactobacillus Acidophilus (Acidophilus), 1 EACH PO BID, (Reported) Levothyroxine Sodium* (Levothyroxine Sodium*), 25 MCG ORAL DAILY, (Reported) Loratadine (Loratadine), 10 MG PO QD, (Reported) Memantine Hcl* (Namenda*), 5 MG ORAL TWICE A DAY, (Reported) Theophylline (Theophylline Anhydrous), 100 MG ORAL TWICE A DAY, (Reported) Valproate Sodium (Valproic Acid), 250 MG PO BID, (Reported) [Mvi], 1 TAB PO QD, (Reported) Scheduled PRN Ipratropium/Albuterol Sulfate (DuoNeb 0.5-3(2.5)mg/3ml), 3 ML HHN Q4HR PRN for WHEEZING/SOB, (Reported) Discontinued Medications Ceftriaxone Sod (Rocephin), 1 GM IV DAILY, (Reported) Discontinued Reason: MD discontinued med Docusate Sodium* (Colace*), 100 MG ORAL DAILY, (Reported) Discontinued Reason: MD discontinued med Ipratropium/Albuterol Sulfate (DuoNeb 0.5-3(2.5)mg/3ml), 3 ML HHN Q6HR, ( Reported) Discontinued Reason: MD discontinued med Levothyroxine Sodium* (Synthroid*), 25 MCG ORAL DAILY, (Reported) Discontinued Reason: MD discontinued med Loratadine (Loratadine), 10 MG PO, (Reported) Discontinued Reason: MD discontinued med Olanzapine* (Zyprexa*), 2.5 MG ORAL TID, (Reported) Discontinued Reason: MD discontinued med Valproic Acid (Valproic Acid), 250 MG GT, (Reported) Discontinued Reason: MD discontinued med [acetylcysteine], 20 % Q6HR, (Reported) Discontinued Reason: MD discontinued med [mucomyst 20%], 100 % HHN Q6HR, (Reported) Discontinued Reason: MD discontinued med [vancomycin iv], IV pharmacy to dose, (Reported) Discontinued Reason: MD discontinued med Patient History Healthcare decision maker Resuscitation status Advanced Directive on File Past Medical/Surgical History Past Medical/Surgical History: (1) CKD (chronic kidney disease) (2) HTN (hypertension) (3) COPD (chronic obstructive pulmonary disease) (4) Schizo affective schizophrenia (5) Hypothyroid Review of Systems All Other Systems: negative except mentioned in HPI Physical Exam General Appearance: WD/WN, no apparent distress Lines, tubes and drains: peripheral HEENT: normocephalic, atraumatic Neck: non-tender, normal alignment Respiratory/Chest: chest wall non-tender, lungs clear Cardiovascular/Chest: normal peripheral pulses Abdomen: normal bowel sounds Genitourinary/Rectal: normal genital exam Extremities: normal range of motion Skin Exam: normal pigmentation Neurologic: internal salesperson II-XII grossly normal Last 24 Hour Vital Signs Date Time Temp Pulse Resp B/P (MAP) Pulse Ox O2 Delivery O2 Flow Rate FiO2 05/11/19 09:00 Nasal Cannula 2.0 05/11/19 08:18 99 Nasal Cannula 2.0 28 05/11/19 08:18 78 18 99 Nasal Cannula 2.0 28 05/11/19 08:00 98.1 77 19 116/67 (83) 94 05/11/19 04:00 97.7 92 19 127/54 (78) 94 05/11/19 01:47 93 20 98 Nasal Cannula 2.0 28 91 20 96 05/11/19 00:00 99.1 100 19 90/52 (65) 95 05/10/19 21:00 Nasal Cannula 2.0 05/10/19 20:00 97.7 94 18 117/60 (79) 96 05/10/19 19:57 96 Nasal Cannula 2.0 28 05/10/19 19:57 92 20 96 Nasal Cannula 2.0 28 05/10/19 16:00 100.1 94 19 123/65 (84) 93 05/10/19 15:45 Nasal Cannula 2.0 Intake and Output 05/10/19 05/11/19 19:00 07:00 Intake Total 540 ml Output Total 100 ml 1200 ml Balance 440 ml -1200 ml Intake IV Total 540 ml Output Urine Total 100 ml 1200 ml # Voids 3 4 Laboratory Tests Test 05/11/19 05:05 White Blood Count 5.5 K/UL (4.8-10.8) Red Blood Count 3.62 M/UL (4.70-6.10) L Hemoglobin 10.2 G/DL (14.2-18.0) L Hematocrit 30.8 % (42.0-52.0) L Mean Corpuscular Volume 85 FL (80-99) Mean Corpuscular Hemoglobin 28.3 PG (27.0-31.0) Mean Corpuscular Hemoglobin Concent 33.2 G/DL (32.0-36.0) Red Cell Distribution Width 13.4 % (11.6-14.8) Platelet Count 163 K/UL (150-450) Mean Platelet Volume 6.5 FL (6.5-10.1) Neutrophils (%) (Auto) 66.7 % (45.0-75.0) Lymphocytes (%) (Auto) 20.1 % (20.0-45.0) Monocytes (%) (Auto) 9.9 % (1.0-10.0) Eosinophils (%) (Auto) 2.0 % (0.0-3.0) Basophils (%) (Auto) 1.2 % (0.0-2.0) Sodium Level 138 MMOL/L (136-145) Potassium Level 3.7 MMOL/L (3.5-5.1) Chloride Level 106 MMOL/L (98-107) Carbon Dioxide Level 26 MMOL/L (21-32) Anion Gap 6 mmol/L (5-15) Blood Urea Nitrogen 11 mg/dL (7-18) Creatinine 0.8 MG/DL (0.55-1.30) Estimat Glomerular Filtration Rate mL/min (>60) Glucose Level 93 MG/DL (74-106) Calcium Level 8.7 MG/DL (8.5-10.1) Phosphorus Level 3.0 MG/DL (2.5-4.9) Albumin 2.8 G/DL (3.4-5.0) L Height (Feet): 5 Height (Inches): 4.00 Weight (Pounds): 139 Medications Current Medications Medications (Trade) Dose Ordered Sig/Tiara Route PRN Reason Start Time Stop Time Status Last Admin Dose Admin Acetaminophen (Tylenol) 650 mg Q4H PRN ORAL FEVER 05/10/19 08:00 06/09/19 07:59 Albuterol/ Ipratropium (Albuterol/ Ipratropium) 3 ml Q4H PRN HHN Shortness of Breath 05/10/19 08:00 05/15/19 07:59 05/11/19 01:47 Apixaban (Eliquis) 5 mg BID ORAL 05/18/19 09:00 06/17/19 08:59 Apixaban (Eliquis) 10 mg BID ORAL 05/11/19 09:30 05/17/19 18:01 05/11/19 09:37 Cefepime HCl 2 gm/ Dextrose 110 ml @ 220 mls/hr Q24H IV 05/11/19 01:00 05/18/19 00:59 05/11/19 01:26 Dextrose (Dextrose 50%) 25 ml Q30M PRN IV Hypoglycemia 05/10/19 08:00 06/09/19 07:59 Dextrose (Dextrose 50%) 50 ml Q30M PRN IV Hypoglycemia 05/10/19 08:00 06/09/19 07:59 Dextrose/Sodium Chloride 1,000 ml @ 60 mls/hr [id number] IV 05/10/19 10:30 06/09/19 10:29 05/11/19 01:26 Docusate Sodium (Colace) 100 mg DAILY ORAL 05/10/19 09:00 06/09/19 08:59 05/11/19 09:37 Levothyroxine Sodium (Synthroid) 25 mcg DAILY@0630 ORAL 05/11/19 06:30 06/10/19 06:29 05/11/19 05:53 Lorazepam (Ativan) 0.5 mg Q6H PRN ORAL For Anxiety 05/10/19 04:45 05/17/19 04:44 Memantine (Namenda) 5 mg TWICE A DAY ORAL 05/10/19 09:00 06/09/19 08:59 05/11/19 09:37 Morphine Sulfate (Morphine Sulfate) 2 mg Q4H PRN IVP Severe Pain (Pain Scale 7-10) 05/10/19 08:00 05/17/19 07:59 Ondansetron HCl (Zofran) 4 mg Q6H PRN IVP Nausea & Vomiting 05/10/19 08:00 06/09/19 07:59 Polyethylene Glycol (Miralax) 17 gm DAILYPRN PRN ORAL Constipation 05/10/19 08:00 06/09/19 07:59 Valproic Acid (Depakene) 250 mg BID ORAL 05/10/19 09:00 06/09/19 08:59 05/11/19 10:47 Vancomycin HCl (Vanco rx to dose) 1 ea DAILY PRN MISC SEPSIS/PNA 05/10/19 08:30 06/09/19 08:29 Vancomycin HCl 1 gm/Dextrose 275 ml @ 183.3 mls/ hr Q24H IV 05/10/19 23:00 05/15/19 22:59 05/10/19 23:54 Assessment/Plan Problem List: (1) HCAP (healthcare-associated pneumonia) ICD Codes: J18.9 - Pneumonia, unspecified organism SNOMED: 631862512, 438653464 (2) COPD (chronic obstructive pulmonary disease) ICD Codes: J44.9 - Chronic obstructive pulmonary disease, unspecified SNOMED: 63256667 (3) HTN (hypertension) ICD Codes: I10 - Essential (primary) hypertension SNOMED: 56821875 (4) Severe protein-calorie malnutrition ICD Codes: E43 - Unspecified severe protein-calorie malnutrition SNOMED: 215915900 (5) CKD (chronic kidney disease) ICD Codes: N18.9 - Chronic kidney disease, unspecified SNOMED: 442571323 (6) Emphysema lung ICD Codes: J43.9 - Emphysema, unspecified SNOMED: 52039831 (7) Hypothyroid ICD Codes: E03.9 - Hypothyroidism, unspecified SNOMED: 44277361 (8) Schizo affective schizophrenia ICD Codes: F25.0 - Schizoaffective disorder, bipolar type SNOMED: 561463290 Assessment/Plan: respiratory treatment check sputum titrate fiO2 to sat of 92% chest PT check electrolytes Boni Miller MD May 11, 2019 12:11
--- NOTE | 2019-05-11 12:12 | Pulmonology Progress Note ---
Assessment/Plan Problems: (1) HCAP (healthcare-associated pneumonia) (2) COPD (chronic obstructive pulmonary disease) (3) HTN (hypertension) (4) Severe protein-calorie malnutrition (5) CKD (chronic kidney disease) (6) Emphysema lung (7) Hypothyroid (8) Schizo affective schizophrenia Assessment/Plan respiratory treatment check sputum titrate fiO2 to sat of 92% chest PT check electrolytes Subjective ROS Limited/Unobtainable: No Constitutional: Reports: no symptoms HEENT: Repors: no symptoms Respiratory: Reports: no symptoms Allergies: Coded Allergies: No Known Allergies (Unverified , 05/14/18) Objective Last 24 Hour Vital Signs Date Time Temp Pulse Resp B/P (MAP) Pulse Ox O2 Delivery O2 Flow Rate FiO2 05/11/19 09:00 Nasal Cannula 2.0 05/11/19 08:18 99 Nasal Cannula 2.0 28 05/11/19 08:18 78 18 99 Nasal Cannula 2.0 28 05/11/19 08:00 98.1 77 19 116/67 (83) 94 05/11/19 04:00 97.7 92 19 127/54 (78) 94 05/11/19 01:47 93 20 98 Nasal Cannula 2.0 28 91 20 96 05/11/19 00:00 99.1 100 19 90/52 (65) 95 05/10/19 21:00 Nasal Cannula 2.0 05/10/19 20:00 97.7 94 18 117/60 (79) 96 05/10/19 19:57 96 Nasal Cannula 2.0 28 05/10/19 19:57 92 20 96 Nasal Cannula 2.0 28 05/10/19 16:00 100.1 94 19 123/65 (84) 93 05/10/19 15:45 Nasal Cannula 2.0 Intake and Output 05/10/19 05/11/19 19:00 07:00 Intake Total 540 ml Output Total 100 ml 1200 ml Balance 440 ml -1200 ml Intake IV Total 540 ml Output Urine Total 100 ml 1200 ml # Voids 3 4 General Appearance: WD/WN HEENT: normocephalic, anicteric Respiratory/Chest: chest wall non-tender, lungs clear Cardiovascular: normal peripheral pulses, normal rate Abdomen: normal bowel sounds, soft, non tender Genitourinary: normal external genitalia Extremities: no cyanosis Skin: no rash Neurologic/Psychiatric: rotary soil stabilizer II-XII grossly normal Microbiology Date/Time Source Procedure Growth Status 05/09/19 23:59 Blood Blood Culture - Preliminary NO GROWTH AFTER 24 HOURS Resulted 05/09/19 23:45 Blood Blood Culture - Preliminary NO GROWTH AFTER 24 HOURS Resulted Laboratory Tests 05/11/19 05:05: White Blood Count 5.5, Red Blood Count 3.62L, Hemoglobin 10.2L, Hematocrit 30.8L , Mean Corpuscular Volume 85, Mean Corpuscular Hemoglobin 28.3, Mean Corpuscular Hemoglobin Concent 33.2, Red Cell Distribution Width 13.4, Platelet Count 163, Mean Platelet Volume 6.5, Neutrophils (%) (Auto) 66.7, Lymphocytes (% ) (Auto) 20.1, Monocytes (%) (Auto) 9.9, Eosinophils (%) (Auto) 2.0, Basophils ( %) (Auto) 1.2, Sodium Level 138, Potassium Level 3.7, Chloride Level 106, Carbon Dioxide Level 26, Anion Gap 6, Blood Urea Nitrogen 11, Creatinine 0.8, Estimat Glomerular Filtration Rate , Glucose Level 93, Calcium Level 8.7, Phosphorus Level 3.0, Albumin 2.8L Current Medications Medications (Trade) Dose Ordered Sig/Tiara Route PRN Reason Start Time Stop Time Status Last Admin Dose Admin Acetaminophen (Tylenol) 650 mg Q4H PRN ORAL FEVER 05/10/19 08:00 06/09/19 07:59 Albuterol/ Ipratropium (Albuterol/ Ipratropium) 3 ml Q4H PRN HHN Shortness of Breath 05/10/19 08:00 05/15/19 07:59 05/11/19 01:47 Apixaban (Eliquis) 5 mg BID ORAL 05/18/19 09:00 06/17/19 08:59 Apixaban (Eliquis) 10 mg BID ORAL 05/11/19 09:30 05/17/19 18:01 05/11/19 09:37 Cefepime HCl 2 gm/ Dextrose 110 ml @ 220 mls/hr Q24H IV 05/11/19 01:00 05/18/19 00:59 05/11/19 01:26 Dextrose (Dextrose 50%) 25 ml Q30M PRN IV Hypoglycemia 05/10/19 08:00 06/09/19 07:59 Dextrose (Dextrose 50%) 50 ml Q30M PRN IV Hypoglycemia 05/10/19 08:00 06/09/19 07:59 Dextrose/Sodium Chloride 1,000 ml @ 60 mls/hr [id number] IV 05/10/19 10:30 06/09/19 10:29 05/11/19 01:26 Docusate Sodium (Colace) 100 mg DAILY ORAL 05/10/19 09:00 06/09/19 08:59 05/11/19 09:37 Levothyroxine Sodium (Synthroid) 25 mcg DAILY@0630 ORAL 05/11/19 06:30 06/10/19 06:29 05/11/19 05:53 Lorazepam (Ativan) 0.5 mg Q6H PRN ORAL For Anxiety 05/10/19 04:45 05/17/19 04:44 Memantine (Namenda) 5 mg TWICE A DAY ORAL 05/10/19 09:00 06/09/19 08:59 05/11/19 09:37 Morphine Sulfate (Morphine Sulfate) 2 mg Q4H PRN IVP Severe Pain (Pain Scale 7-10) 05/10/19 08:00 05/17/19 07:59 Ondansetron HCl (Zofran) 4 mg Q6H PRN IVP Nausea & Vomiting 05/10/19 08:00 06/09/19 07:59 Polyethylene Glycol (Miralax) 17 gm DAILYPRN PRN ORAL Constipation 05/10/19 08:00 06/09/19 07:59 Valproic Acid (Depakene) 250 mg BID ORAL 05/10/19 09:00 06/09/19 08:59 05/11/19 10:47 Vancomycin HCl (Vanco rx to dose) 1 ea DAILY PRN MISC SEPSIS/PNA 05/10/19 08:30 06/09/19 08:29 Vancomycin HCl 1 gm/Dextrose 275 ml @ 183.3 mls/ hr Q24H IV 05/10/19 23:00 05/15/19 22:59 05/10/19 23:54 Boni Miller MD May 11, 2019 12:12
--- NOTE | 2019-05-11 12:24 | NUR ---
SWALLOW/SPEECH THERAPY NOTE: REFERRED FOR DIALLO REECE BY DR ALEGRE, SEE FULL REPORT. DYSPHAGIA RISK FACTORS FOR THIS 83 Y.O.M.: ACUTE ISSUES: SEPSIS, PNEUMONIA, COUGH CONGESTION H/O DYSPHAGIA, DEMENTIA, R LL PNA 04/2018 COPD, EMPHYSEMA, EPILEPSY, DEHYDRATION, MALNUTRITION AND ANOREXIA, CKD, HYPOTHYROIDISM, HTN, SCHIZOPHRENIA (ZYPREXA) RELEVANTS MEDS: ALBUTEROL, MORPHINE. PER POL OK FOR TRIAL ARTIFICIAL NUTRITION IF NEEDS AT SNF ON A FORTIFIED PUREED AND NECTAR [place] [facility] [place] HAD A SWALLOW EVALUATION AND HAD A MILD-MOD OROPHARYNGEAL DYSPHAGIA AND PLACED ON PUREED AND NECTAR THICK LIQUID DIET. MOD BARIUM SWALLOW STUDY RECOMMENDED BUT NOT COMPLETED DUE TO SCHEDULE CONFLICTS. NOW ON A PUREED AND THIN LIQUID DIET WITH 50-75% INTAKE. PER RNBEATRIZ, THE PATIENT COUGHS WITH MEDS WHOLE AND WATER. ALERT BUT MIN VERBAL INITIATION. VOICE SOFT BUT CLEAR. ABLE TO EXPRESS SOME BASIC NEEDS. MAKE CHEWING MOVEMENTS W/O PO INTAKE ? MED RELATED TO ZYPREXA (? TARDIVE DYSKINESIA). ON ROOM AIR. INITIAL IMPRESSIONS: S/S OF AT LEAST A MILD TO MODERATE OROPHARYNGEAL DYSPHAGIA GROSSLY FUNCTIONAL LIP CLOSURE AND TONGUE MOVEMENTS GIVEN NECTAR THICK LIQUIDS VIA CUP STRAW, FAIR HYOLARYNGEAL EXCURSION, NO ORAL RESIDUE NOR OVERT ASPIRATION. GIVEN TSP PUREED, CHEWED FOR 2 SECONDS AND SWALLOWED WITH FAIR HYOLARYNGEAL EXCURSION, COUGHED AFTER THE SWALLOW, NO ORAL RESIDUE. WILL HOLD ON THIN LIQUIDS AND MASTICATED SOLIDS FOR NOW (NO DENTITION/DENTURES). HAS A SILENT ASPIRATION RISK DUE TO DX OF DEMENTIA AND HIGHER ASP RISK DUE TO COPD AND RESPIRATORY ISSUES. RECOMMENDATIONS: GIVEN HIS CURRENT PNEUMONIA (AND PRIOR A YEAR AGO 2018), CONSIDER COMPLETING A MODIFIED BARIUM SWALLOW STUDY TO FURTHER ASSESS SWALLOW, DETERMINE SILENT ASPIRATION RISK/ETIOLOGY, AND ATTEMPT TRIAL [place] TECHNIQUES. IF PO CONTINUES FOR QUALITY OF LIFE, CONSIDER CONTINUING WITH PUREED (1/2 TSP ONLY) AND DOWNGRADE TO NECTAR THICK LIQUIDS WITH POSTED ASP/REFLUX PRECAUTIONS AND ONE TO ONE FEEDING. RD REGARDING DIET TYPE AND HIGH ANTHONY SUPPLEMENTS IF NEEDS. (AT SNF ON A FORTIFIED DIET). EDUCATED/TRAINED RN (BEATRIZ) IN POSTED PRECAUTIONS SKILLED DYSPHAGIA MANAGEMENT/TX AND COG-COM EVAL/TX FOR COMMUNICATION TIPS MOSTLY
--- NOTE | 2019-05-11 13:18 | NUR ---
P.T Note: Order received, chart reviewed. Pt cleared for P.T evaluation and mobilization. Pt is alert, oriented to self/person but not to time and place , periodically confused however follows commands appropriately. Pt reports c/o generalized weakness, fatigue and L lower leg pain aggravate by touch/pressure and walking. Pt currently require MOD A X 1 for bed mobilities and transfers and MIN A X 1 for gait/ambulation activities using the FWW. Skilled P.T service is warranted to improve strength, balance and endurance to increase mobility independence and safety during stay. Recommend SNF for further rehab intervention at [place]. Pt is cleared for OOB activities using FWW with nursing assist.
--- NOTE | 2019-05-11 13:55 | Cardiology Report ---
APPROVED REPORT EKG Measurement Heart [id number] Normal sinus rhythm Possible Left atrial enlargement Borderline ECG
[2019-05-11] MEDS ORDERED: Varibar Honey 250ml MC PRN (14:00)
[2019-05-11] MEDS ORDERED: Varibar Nectar 240ml MC PRN (14:00)
[2019-05-11] MEDS ORDERED: Varibar Pudding 230ml MC PRN (14:00)
[2019-05-11] MEDS ORDERED: MULTIVITAMINS1 EAC2 ORAL (14:33)
[2019-05-11] MEDS ORDERED: SYNTHROID25 MCG ORAL (14:33)
[2019-05-11] MEDS ORDERED: LORATADINE10 M2 PO (14:39)
[2019-05-11] MEDS ORDERED: ACETAMINOPHEN325 M1 ORAL (14:39)
[2019-05-11 15:14] LABS: % IRON SATURATION 6 % (15-50); IRON 11 ug/dL (50-175); TOTAL IRON BINDING CAPACITY 183 ug/dL (250-450)
[2019-05-11 15:18] LABS: FERRITIN 110 NG/ML (8-388)
--- NOTE | 2019-05-11 15:26 | NUR ---
SWALLOW/SPEECH THERAPY NOTE: COMPLETED MODIFIED BARIUM SWALLOW STUDY, SEE FULL REPORT TO FOLLOW. INITIAL IMPRESSIONS: MODERATE TO MODERATELY SEVERE OROPHARYNGEAL DYSPHAGIA WITH OVERALL INCREASED TRANSIT TIMES DUE TO SENSORIMOTOR DEFICITS AND COMPOUNDED BY POOR COUGH AND RESPIRATORY SUPPORT/CONTROL AND POOR COGNITION AND ABILITY TO FOLLOW AND HEAR ([place]) COMMANDS FOR SWALLOWING STRATEGIES. THIN LIQUIDS TRACE AND AUDIBLE ASPIRATION VIA CUP/STRAW SEQUENTIAL SIPS DUE TO DELAYED SWALLOW AND LATE CLOSURE OF LARYNGEAL VESTIBULE. TRACE PENETRATION WITH TSP TO LEVEL OF VOCAL FOLD W/O EJECTION DUE TO REDUCED TONGUE BASE RETRACTION. NECTAR THICK LIQUIDS TRACE AUDIBLE ASPIRATION WITH STRAW SEQUENTIAL SIPS ONLY) AND DUE TO PHARYNGEAL DYSMOTILITY (MOSTLY REDUCED TONGUE BASE RETRACTIONS) TSP - TRACE SILENT PENETRATION, CONTACTS VOCAL FOLDS NOT EJECTED AND CUP - TRACE SILENT PENETRATION ABOVE VOCAL FOLDS NOT EJECTED DUE TO SAME PROBLEM. HONEY THICK LIQUID TSP NO ASPIRATION BUT HAD TRACE SILENT PENETRATION CONTACTS VOCAL FOLDS NOT EJECTED DUE TO REDUCED TONGUE BASE RETRACTION. PUDDING TSP - NO ASPIRATION/PENETRATION BUT HAS RISK AFTER THE SWALLOW DUE TO OROPHARYNGEAL DYSMOTILITY/RESIDUE NOT CLEARED EVEN WITH MAX CUES. NEEDED A FEW 1/4 TSP WATER TO CLEAR OUT MIN VALLECULAR RESIDUE AND COUGHED AT TIMES. RISK FOR CHRONIC TRACE ASPIRATION AND PENETRATION WITH ALL CONSISTENCIES PARTICULARLY IF ASPIRATION PRECAUTIONS NOT USED AND DUE TO THE FOLLOWING DEFICITS/COMPONENTS: Oral Impairment Tongue Control Bolus prep/mastication Bolus transport/lingual motion Oral residue Init. pharyngeal swallow Pharyngeal Impairment Laryngeal elevation (LE) Anterior hyoid excursion (AHE) Epiglottic movement Late and incomplete laryngeal vestibule closure Pharyngeal stripping wave Pharyngeal segment opening Tongue base retraction Pharyngeal residue Decreased pharyngeal sensation ESOPHAGEAL PHASE GROSSLY FUNCTIONAL IN LATERAL LIMITED VIEW TRIAL TX: LIMITED ABILITY TO FOLLOW COMMANDS TO TUCK CHIN, HARD AND AGAIN, AND EFFORTFUL BREATH HOLD. BENEFITS FROM EXTRA SWALLOW (IF HE DOES IT) AND WITH VISUAL CUES (POOR HEARING), MORE TIME, SMALL AMOUNTS TSP OR VERY SMALL SIP (THOUGH MAY TAKE LARGER SIP WHEN UNSUPERVISED), AND NECTAR THICK OR HONEY THICK BEST THOUGH HONEY THICK MAY BE UNAPPEALING. RECOMMENDATIONS: CONSIDER NONORAL FEEDINGS ONLY IF PATIENT IS RECEPTIVE DUE TO HIGH RISK OF CHRONIC TRACE ASPIRATION WITH ALL CONSISTENCIES. THE PATIENT SAYS HE WANTS TO EAT/DRINK BY MOUTH BECAUSE HE LIKES IT. IF PO CONTINUES FOR QUALITY OF LIFE AND COMFORT FEEDING PURPOSES, CONSIDER CONTINUING WITH PUREED AND NECTAR THICK LIQUIDS BUT USE UPDATED AND POSTED ASPIRATION PRECAUTIONS. EDUCATED/TRAINED STAFF IN PRECAUTIONS. WILL CONTINUE WITH SKILLED DYSPHAGIA MANAGEMENT AND [place] AND D/W MD AND CONSERVATOR WHEN AVAILABLE.
[2019-05-11] MEDS ORDERED: Guaifenesin/DM 10ml syrup ORAL PRN (15:45)
--- NOTE | 2019-05-11 15:50 | NUR ---
CASE MANAGEMENT:INITIAL REVIEW 83 YR OLD MALE MARIELLA FROM [facility] CC: FEVER SI: SEPSIS . PNA . ANEMIA. ACUTE ENCEPHALOPATHY 97.8 93 17 99/61 92% RA H/H 10.7/ 31.5; IS: IVF NS BOLUS X2 IVF NS BOLUS 1/2 X1 IV CEFEPIME X1 IV LEVOFLOXACIN X1 TYLENOL FL X1 : 4E MED SURG DCP: [place] TO [facility] PER DR. ALEGRE CASE MANAGEMENT:INITIAL REVIEW 05/11/19 SI: SEPSIS . PNA . ANEMIA. ACUTE ENCEPHALOPATHY 98.1 77 19 116/67 94% NC 2L H/H 10.2/ 30.8; FE 11; TIBC 183/ %SAT 6 IS: IV CEFEPIME Q24HR IV VANCOMYCIN Q24HR IV DEXTROSE/NS @60HR ELIQUIS PO BID VALPROIC ACID PO BID ALBUTEROL HHN Q4/PRN : 4E MED SURG DCP: [place] TO [facility] PER DR. ALEGRE PLAN: VIDEO SWALLOW
--- NOTE | 2019-05-11 15:51 | NUR ---
RD ASSESSMENT & RECOMMENDATIONS SEE CARE ACTIVITY FOR COMPLETE ASSESSMENT DAILY ESTIMATED NEEDS: Needs based on COPD/ 63kg 25-30 kcals/kg 6543-1408 total kcals 1-1.5 g protein/kg 63-95 g total protein 25-30 mL/kg 4774-9128 total fluid mLs NUTRITION DIAGNOSIS: * Swallowing difficulty R/T dysphagia as evidenced by s/p VSS, FERRY OPERATOR recommends pureed moist texture, NTL if PO continues for quality of life. CURRENT DIET:SOFT, PUREED MOIST, NTL PO DIET RECOMMENDATIONS: Regular/ texture per FERRY OPERATOR ADDITIONAL RECOMMENDATIONS: * Calibrated bedscale wt for accurate CBW * MVI x 1 as supplement * Monitor PO intake, need for HPN * Consult RD if TF indicated and part of POC -> per FERRY OPERATOR, "HIGH RISK OF CHRONIC TRACE ASPIRATION WITH ALL CONSISTENCIES." * Monitor lytes, replete as needed
--- NOTE | 2019-05-11 19:45 | NUR ---
NURSE NOTES: Patient in bed awake and oriented. VSS. No SOB noted. Patients IV and condom cath are pulled out. Inserted a new condom cath and IV 22g in R FA. Patient has dry cough. HOB elevated. Needs attended. Due meds given. Bed is locked and in low position. Call light within reach. In stable condition.
--- NOTE | 2019-05-11 19:50 | NUR ---
HAND-OFF: Report given to SANTIAGO SAMPSON.
[2019-05-11 20:00] VITALS: BP 150/81
--- NOTE | 2019-05-11 22:15 | Progress Note ---
DATE: 05/11/2019 SUBJECTIVE: The patient is an 83-year-old male patient who came into the hospital with urinary tract infection but he still has altered mental status, confusion, and overall decline in cognition below his baseline that is why, his attending physician has requested daily psychiatric consultation for this patient. The patient has sepsis, pneumonia, urinary tract infection causing altered mental status and decline in cognition below his baseline that is why his attending physician has requested daily psychiatric consultation. MENTAL STATUS EXAMINATION: The patient is an 83-year-old male. Appearance is disheveled. Attitude, irritable and agitated. Affect, guarded and restricted. Intellect poor. Mood, depressed and anxious. Motor activity, psychomotor agitation. Insight and judgement is poor. DIAGNOSIS: Major depressive disorder, severe, recurrent with psychotic features, rule out dementia with psychosis. PLAN: My plan for this patient is to treat him with psychotropic medication regimen consisting of Depakene 250 mg twice a day, Namenda 5 mg twice a day, Ativan 0.5 mg every 6 hours p.r.n. anxiety and agitation. The patient will continue to be followed by Psychiatry throughout his hospital course. Chart reviewed and discussed with staff. The patient was seen and assessed at bedside. Brad Barnes M.D. DR: Wesley JOB#: [id number] CC:
[2019-05-11] MEDS: Vancomycin 1 GM in D5W 275 ML IV SCH (23:42)
[2019-05-12] VITALS: BP 138/82
[2019-05-12] MEDS: Cefepime HCl 2 GM in D5W 110 ML IV SCH (01:30)
[2019-05-12 04:00] VITALS: BP 131/74
--- NOTE | 2019-05-12 05:15 | Consultation ---
DATE OF CONSULTATION: 05/11/2019 NOTE: POOR AUDIO PSYCHOTHERAPY CONSULTATION PROGRESS NOTE CONSULTING PHYSICIAN: Saige Calderon M.D. TREATING ATTENDING PHYSICIAN: Rell Tovar D.O. HISTORY OF PRESENT ILLNESS: This patient is a male patient. He is 83 years old. The patient is from [facility]. He has been in the past. The patient is brought to the hospital for pneumonia. The patient has a history of schizoaffective disorder. The patient is slightly confused and consulted for these reasons, who self referred for psychotherapeutic services. The patient is forgetful. He states that he cannot recall exactly where he was living. He states somewhere in [place]. He has been feeling helpless and he has difficulty with his memory. He states that sometimes he feels helpless and depressed because he feels alone, however he has been very cooperative. He denies any suicidal or homicidal thoughts of ideation. Denies any auditory or visual hallucinations. PAST MEDICAL HISTORY: Includes a history of COPD, hepatitis C, and hypothyroidism. ALLERGIES: The patient has no known drug allergies. SUBSTANCE ABUSE HISTORY: There is no indication of alcohol use, illicit substance use, or smoking cigarettes. PSYCHIATRIC HISTORY: The patient does have a history of possible schizoaffective disorder and depression with history of psychotropic medications. SOCIAL HISTORY: This patient is a male patient from [place] . Financially sustained through [employer]. MENTAL STATUS EXAMINATION: The patient is alert and oriented to person and place. Mood is dysphoric. Affect blunted. Thought process, disorganized. He has poor attention and concentration. Poor insight, judgment, and impulse control. The patient is extensively talking to this clinician regarding his [place] and his past history, patient has a seen a psychiatrist when he was much younger. He could not recall what he was treated for. The patient is able to communicate and articulate his thoughts and needs. I assessed this patient and provided the patient with, 1. Reality orientation, which is focused on improving cognitive function of the patient, who is very confused and disorganized. Oriented to person, place, time, and situation. therapy associated with the mood, expression process, and motor . 2. Encouraging him to articulate his thoughts effectively and decrease his feelings of helplessness, depression, and judgment and behavioral therapist insight into his behaviors and as well as decreasing his depressive symptoms addressing positive symptoms, the patient with coping skills, , mild and recurrent with psychotic features. Plan is to maintain medication compliance with positive coping skills and stabilizing his behavior psychotherapy services. This clinician has reviewed the patient's chart. Discussed the treatment with treatment team. Saige Calderon PsyD. DR: HAROON JOB#: [id number] CC:
[2019-05-12] MEDS: Levothyroxine 25mcg tab ORAL SCH (05:43)
[2019-05-12] MEDS: D5 1/2NS 1,000 ML IV SCH (05:43)
--- NOTE | 2019-05-12 05:57 | Hematology/Onc Progress Note ---
Assessment/Plan Assessment/Plan # Dvt of the right lower extremity -- on imaging has femoral to popliteal vein involvement of the right leg --> have started on apixaban bid dosing, recommend at minimum for 3 months --> does not require hypercoag eval --> monitor for resolution of dvt # Anemia of chronic disease --> monitor for improvement --> no e/o hemolysis --> transfuse as needed --> anemia panel reviewed # COPD --> breathing treatments prn --> pulm eval # HTN --> sbp goal <140 # PNA LLL --> on abx # DANIELLE/dehydration --> improved # Psychiatric disorder --> per psych Greatly appreciate consultation, nate RN Subjective Constitutional: Denies: no symptoms, chills, fever, malaise, weakness, other HEENT: Denies: no symptoms, eye pain, blurred vision, tearing, double vision, ear pain, ear discharge, nose pain, nose congestion, throat pain, throat swelling, mouth pain, mouth swelling, other Genitourinary: Denies: no symptoms, burning, discharge, frequency, flank pain, hematuria, incontinence, pain, urgency, other Neurologic/Psychiatric: Denies: no symptoms, anxiety, depressed, emotional problems, headache, numbness, paresthesia, pre-existing deficit, seizure, tingling, tremors, weakness, other Hematologic/Lymphatic: Denies: no symptoms, anemia, easy bleeding, easy bruising, adenopathy, other Allergies: Coded Allergies: No Known Allergies (Unverified , 05/14/18) Subjective 05/12: no events overnight, tolerating apixaban well, no bleeding Objective Objective Current Medications Medications (Trade) Dose Ordered Sig/Tiara Route PRN Reason Start Time Stop Time Status Last Admin Dose Admin Acetaminophen (Tylenol) 650 mg Q4H PRN ORAL FEVER 05/10/19 08:00 06/09/19 07:59 Albuterol/ Ipratropium (Albuterol/ Ipratropium) 3 ml Q4H PRN HHN Shortness of Breath 05/10/19 08:00 05/15/19 07:59 05/11/19 01:47 Apixaban (Eliquis) 5 mg BID ORAL 05/18/19 09:00 06/17/19 08:59 Apixaban (Eliquis) 10 mg BID ORAL 05/11/19 09:30 05/17/19 18:01 05/11/19 17:09 Barium Sulfate (Varibar Honey) 250 ml NOW PRN RAD 05/11/19 14:00 05/14/19 13:57 Barium Sulfate (Varibar [place]) 240 ml NOW PRN RAD 05/11/19 14:00 05/14/19 13:57 Barium Sulfate (Varibar Pudding) 230 ml NOW PRN RAD 05/11/19 14:00 05/14/19 13:57 Cefepime HCl 2 gm/ Dextrose 110 ml @ 220 mls/hr Q24H IV 05/11/19 01:00 05/18/19 00:59 05/12/19 01:30 Dextrose (Dextrose 50%) 25 ml Q30M PRN IV Hypoglycemia 05/10/19 08:00 06/09/19 07:59 Dextrose (Dextrose 50%) 50 ml Q30M PRN IV Hypoglycemia 05/10/19 08:00 06/09/19 07:59 Dextrose/Sodium Chloride 1,000 ml @ 60 mls/hr [id number] IV 05/10/19 10:30 06/09/19 10:29 05/12/19 05:43 Docusate Sodium (Colace) 100 mg DAILY ORAL 05/10/19 09:00 06/09/19 08:59 05/11/19 09:37 Guaifenesin/ Dextromethorphan (Robitussin DM Syrup) 15 ml Q6H PRN ORAL For Cough 05/11/19 15:45 06/10/19 15:44 05/11/19 17:10 Levothyroxine Sodium (Synthroid) 25 mcg DAILY@0630 ORAL 05/11/19 06:30 06/10/19 06:29 05/12/19 05:43 Lorazepam (Ativan) 0.5 mg Q6H PRN ORAL For Anxiety 05/10/19 04:45 05/17/19 04:44 Memantine (Namenda) 5 mg TWICE A DAY ORAL 05/10/19 09:00 06/09/19 08:59 05/11/19 17:08 Morphine Sulfate (Morphine Sulfate) 2 mg Q4H PRN IVP Severe Pain (Pain Scale 7-10) 05/10/19 08:00 05/17/19 07:59 Ondansetron HCl (Zofran) 4 mg Q6H PRN IVP Nausea & Vomiting 05/10/19 08:00 06/09/19 07:59 Polyethylene Glycol (Miralax) 17 gm DAILYPRN PRN ORAL Constipation 05/10/19 08:00 06/09/19 07:59 Valproic Acid (Depakene) 250 mg BID ORAL 05/10/19 09:00 06/09/19 08:59 05/11/19 17:09 Vancomycin HCl (Vanco rx to dose) 1 ea DAILY PRN MISC SEPSIS/PNA 05/10/19 08:30 06/09/19 08:29 Vancomycin HCl 1 gm/Dextrose 275 ml @ 183.3 mls/ hr Q24H IV 05/10/19 23:00 05/15/19 22:59 05/11/19 23:42 Last 24 Hour Vital Signs Date Time Temp Pulse Resp B/P (MAP) Pulse Ox O2 Delivery O2 Flow Rate FiO2 05/12/19 04:00 97.8 75 18 131/74 (93) 94 05/12/19 00:00 97.6 82 18 138/82 (100) 93 05/11/19 23:20 99 Nasal Cannula 2.0 28 05/11/19 23:20 79 16 99 Nasal Cannula 2.0 28 05/11/19 21:00 Nasal Cannula 2.0 05/11/19 20:00 97.5 81 20 150/81 (104) 95 05/11/19 12:00 97.9 76 19 118/72 (87) 94 05/11/19 09:00 Nasal Cannula 2.0 05/11/19 08:18 99 Nasal Cannula 2.0 28 05/11/19 08:18 78 18 99 Nasal Cannula 2.0 28 05/11/19 08:00 98.1 77 19 116/67 (83) 94 05/11/19 04:00 97.7 92 19 127/54 (78) 94 05/11/19 01:47 93 20 98 Nasal Cannula 2.0 28 91 20 96 05/11/19 00:00 99.1 100 19 90/52 (65) 95 05/10/19 21:00 Nasal Cannula 2.0 05/10/19 20:00 97.7 94 18 117/60 (79) 96 05/10/19 19:57 96 Nasal Cannula 2.0 28 05/10/19 19:57 92 20 96 Nasal Cannula 2.0 28 05/10/19 16:00 100.1 94 19 123/65 (84) 93 05/10/19 15:45 Nasal Cannula 2.0 05/10/19 11:52 98.6 92 18 122/69 (86) 93 05/10/19 10:06 81 20 98 Nasal Cannula 2.0 28 05/10/19 10:06 98 Nasal Cannula 2.0 28 05/10/19 09:00 Nasal Cannula 2.0 05/10/19 08:00 99.0 100 20 119/77 (91) 93 Intake and Output 05/11/19 05/12/19 19:00 07:00 Intake Total 1140 ml 1260 ml Output Total 900 ml Balance 1140 ml 360 ml Intake Oral 600 ml IV Total 540 ml 660 ml Other 600 ml Output Urine Total 900 ml Labs Test 05/09/19 23:59 05/11/19 05:05 White Blood Count 10.7 K/UL (4.8-10.8) 5.5 K/UL (4.8-10.8) Red Blood Count 3.75 M/UL (4.70-6.10) 3.62 M/UL (4.70-6.10) Hemoglobin 10.7 G/DL (14.2-18.0) 10.2 G/DL (14.2-18.0) Hematocrit 31.5 % (42.0-52.0) 30.8 % (42.0-52.0) Mean Corpuscular Volume 84 FL (80-99) 85 FL (80-99) Mean Corpuscular Hemoglobin 28.5 PG (27.0-31.0) 28.3 PG (27.0-31.0) Mean Corpuscular Hemoglobin Concent 33.9 G/DL (32.0-36.0) 33.2 G/DL (32.0-36.0) Red Cell Distribution Width 14.6 % (11.6-14.8) 13.4 % (11.6-14.8) Platelet Count 201 K/UL (150-450) 163 K/UL (150-450) Mean Platelet Volume 6.5 FL (6.5-10.1) 6.5 FL (6.5-10.1) Neutrophils (%) (Auto) 82.4 % (45.0-75.0) 66.7 % (45.0-75.0) Lymphocytes (%) (Auto) 8.0 % (20.0-45.0) 20.1 % (20.0-45.0) Monocytes (%) (Auto) 8.3 % (1.0-10.0) 9.9 % (1.0-10.0) Eosinophils (%) (Auto) 0.1 % (0.0-3.0) 2.0 % (0.0-3.0) Basophils (%) (Auto) 1.2 % (0.0-2.0) 1.2 % (0.0-2.0) Sodium Level 139 MMOL/L (136-145) 138 MMOL/L (136-145) Potassium Level 4.1 MMOL/L (3.5-5.1) 3.7 MMOL/L (3.5-5.1) Chloride Level 105 MMOL/L (98-107) 106 MMOL/L (98-107) Carbon Dioxide Level 25 MMOL/L (21-32) 26 MMOL/L (21-32) Anion Gap 9 mmol/L (5-15) 6 mmol/L (5-15) Blood Urea Nitrogen 21 mg/dL (7-18) 11 mg/dL (7-18) Creatinine 1.2 MG/DL (0.55-1.30) 0.8 MG/DL (0.55-1.30) Estimat Glomerular Filtration Rate mL/min (>60) mL/min (>60) Glucose Level 122 MG/DL (74-106) 93 MG/DL (74-106) Lactic Acid Level 1.80 mmol/L (0.4-2.0) Calcium Level 8.9 MG/DL (8.5-10.1) 8.7 MG/DL (8.5-10.1) Total Bilirubin 0.3 MG/DL (0.2-1.0) Aspartate Amino Transf (AST/SGOT) 13 U/L (15-37) Alanine Aminotransferase (ALT/SGPT) 18 U/L (12-78) Alkaline Phosphatase 90 U/L (46-116) Total Creatine Kinase 120 U/L (26-308) Creatine Kinase MB 0.9 NG/ML (0.0-3.6) Creatine Kinase MB Relative Index 0.7 Troponin I 0.007 ng/mL (0.000-0.056) Total Protein 7.0 G/DL (6.4-8.2) Albumin 3.1 G/DL (3.4-5.0) 2.8 G/DL (3.4-5.0) Globulin 3.9 g/dL Albumin/Globulin Ratio 0.8 (1.0-2.7) Phosphorus Level 3.0 MG/DL (2.5-4.9) Iron Level 11 ug/dL (50-175) Total Iron Binding Capacity 183 ug/dL (250-450) Percent Iron Saturation 6 % (15-50) Unsaturated Iron Binding 172 ug/dL (112-346) Ferritin 110 NG/ML (8-388) Height (Feet): 5 Height (Inches): 4.00 Weight (Pounds): 139 Objective General Appearance: lethargic HEENT: normal alignment CV: normal peripheral pulses, normal rate, regular rhythm Chest: chest wall non-tender, lungs clear, normal breath sounds Abdomen: normal bowel sounds, non tender, soft Extremities: normal inspection Edema: no cce Neurologic: motor weakness Jagdeep Carlton MD May 12, 2019 05:57
[2019-05-12 07:29] LABS: BASOPHILS % (AUTO) 1.2 % (0.0-2.0); EOSINOPHILS % (AUTO) 2.4 % (0.0-3.0); HEMATOCRIT 32.9 % (42.0-52.0); HEMOGLOBIN 10.6 G/DL (14.2-18.0); LYMPHOCYTES % (AUTO) 29.5 % (20.0-45.0); MEAN CORPUSCULAR VOLUME 86 FL (80-99); MONOCYTES % (AUTO) 7.7 % (1.0-10.0); NEUTROPHILS % (AUTO) 59.1 % (45.0-75.0); PLATELET COUNT 182 K/UL (150-450); RED BLOOD COUNT 3.83 M/UL (4.70-6.10); RED CELL DISTRIBUTION WIDTH 14.5 % (11.6-14.8); WHITE BLOOD COUNT 4.6 K/UL (4.8-10.8)
--- NOTE | 2019-05-12 07:30 | NUR ---
NURSE NOTES: Patient in bed awake, alert and oriented x2, verbally responsive though confused. No SOB noted. IV access intact and patent. HOB elevated. 1:1 feeder. Keep bed in the lowest position. Bed is locked and alarm activated. Call light within reach. will cont to monitor.
[2019-05-12 07:57] LABS: ANION GAP 5 mmol/L (5-15); BLOOD UREA NITROGEN 10 mg/dL (7-18); CALCIUM 8.8 MG/DL (8.5-10.1); CARBON DIOXIDE 28 MMOL/L (21-32); CHLORIDE 106 MMOL/L (98-107); CREATININE 0.7 MG/DL (0.55-1.30); POTASSIUM 3.8 MMOL/L (3.5-5.1); SODIUM 139 MMOL/L (136-145)
[2019-05-12 08:00] VITALS: BP 130/70
[2019-05-12] MEDS: Eliquis 5mg tablet ORAL SCH ×2 (08:52→17:36)
[2019-05-12] MEDS: Valproic Acid 250mg/5ml Liquid ORAL SCH ×2 (08:52→17:36)
[2019-05-12] MEDS: Docusate 100mg cap ORAL SCH (08:52)
[2019-05-12] MEDS: Memantine 5 MG TAB ORAL SCH ×2 (08:52→17:36)
--- NOTE | 2019-05-12 11:28 | Diagnostic Imaging Report ---
APPROVED REPORT CPT Code: 57053 Present Symptoms Comments: Chest pain RIGHT LEG: Venous imaging reveals acute thrombus in the superficial femoral to the popliteal veins. Imaging also reveals patency of the common femoral, and calf veins. Greater saphenous vein within normal limits. LEFT LEG: Venous imaging reveals a patent deep venous system. There is no evidence of thrombus within the femoral, popliteal or tibial segments. The greater saphenous vein is also within normal limits. Doppler indicates normal spontaneous flow within these segments. ADRIÁN Shirley was notified of abnormal results at 0830 hours.
[2019-05-12 12:00] VITALS: BP 134/77
--- NOTE | 2019-05-12 12:08 | Pulmonology Progress Note ---
Assessment/Plan Problems: (1) Pneumonia (2) COPD (chronic obstructive pulmonary disease) (3) Emphysema lung (4) CKD (chronic kidney disease) (5) Hypothyroid (6) HCAP (healthcare-associated pneumonia) (7) Schizo affective schizophrenia Assessment/Plan improving swallow study noted respiratory treatment check sputum titrate fiO2 to sat of 92% chest PT check electrolytes dc planning soon Subjective ROS Limited/Unobtainable: No Constitutional: Reports: no symptoms HEENT: Repors: no symptoms Respiratory: Reports: no symptoms Allergies: Coded Allergies: No Known Allergies (Unverified , 05/14/18) Objective Last 24 Hour Vital Signs Date Time Temp Pulse Resp B/P (MAP) Pulse Ox O2 Delivery O2 Flow Rate FiO2 05/12/19 09:00 Room Air 05/12/19 08:00 98.0 80 18 130/70 (90) 96 05/12/19 04:00 97.8 75 18 131/74 (93) 94 05/12/19 00:00 97.6 82 18 138/82 (100) 93 05/11/19 23:20 99 Nasal Cannula 2.0 28 05/11/19 23:20 79 16 99 Nasal Cannula 2.0 28 05/11/19 21:00 Nasal Cannula 2.0 05/11/19 20:00 97.5 81 20 150/81 (104) 95 Intake and Output 05/11/19 05/12/19 19:00 07:00 Intake Total 1140 ml 1320 ml Output Total 900 ml Balance 1140 ml 420 ml Intake Oral 600 ml IV Total 540 ml 720 ml Other 600 ml Output Urine Total 900 ml General Appearance: WD/WN HEENT: normocephalic, atraumatic Respiratory/Chest: chest wall non-tender, lungs clear, normal breath sounds Cardiovascular: normal peripheral pulses, normal rate Abdomen: normal bowel sounds, soft, non tender Genitourinary: normal external genitalia Extremities: no clubbing Skin: no lesions Microbiology Date/Time Source Procedure Growth Status 05/09/19 23:59 Blood Blood Culture - Preliminary NO GROWTH AFTER 48 HOURS Resulted 05/09/19 23:45 Blood Blood Culture - Preliminary NO GROWTH AFTER 48 HOURS Resulted Laboratory Tests 05/12/19 05:38: White Blood Count 4.6L, Red Blood Count 3.83L, Hemoglobin 10.6L, Hematocrit 32.9L, Mean Corpuscular Volume 86, Mean Corpuscular Hemoglobin 27.8, Mean Corpuscular Hemoglobin Concent 32.4, Red Cell Distribution Width 14.5, Platelet Count 182, Mean Platelet Volume 6.1L, Neutrophils (%) (Auto) 59.1, Lymphocytes ( %) (Auto) 29.5, Monocytes (%) (Auto) 7.7, Eosinophils (%) (Auto) 2.4, Basophils (%) (Auto) 1.2, Sodium Level 139, Potassium Level 3.8, Chloride Level 106, Carbon Dioxide Level 28, Anion Gap 5, Blood Urea Nitrogen 10, Creatinine 0.7, Estimat Glomerular Filtration Rate , Glucose Level 82, Calcium Level 8.8 Current Medications Medications (Trade) Dose Ordered Sig/Tiara Route PRN Reason Start Time Stop Time Status Last Admin Dose Admin Acetaminophen (Tylenol) 650 mg Q4H PRN ORAL FEVER 05/10/19 08:00 06/09/19 07:59 Albuterol/ Ipratropium (Albuterol/ Ipratropium) 3 ml Q4H PRN HHN Shortness of Breath 05/10/19 08:00 05/15/19 07:59 05/11/19 01:47 Apixaban (Eliquis) 5 mg BID ORAL 05/18/19 09:00 06/17/19 08:59 Apixaban (Eliquis) 10 mg BID ORAL 05/11/19 09:30 05/17/19 18:01 05/12/19 08:52 Barium Sulfate (Varibar Honey) 250 ml NOW PRN MC RAD 05/11/19 14:00 05/14/19 13:57 Barium Sulfate (Varibar [place]) 240 ml NOW PRN MC RAD 05/11/19 14:00 05/14/19 13:57 Barium Sulfate (Varibar Pudding) 230 ml NOW PRN MC RAD 05/11/19 14:00 05/14/19 13:57 Cefepime HCl 2 gm/ Dextrose 110 ml @ 220 mls/hr Q24H IV 05/11/19 01:00 05/18/19 00:59 05/12/19 01:30 Dextrose (Dextrose 50%) 25 ml Q30M PRN IV Hypoglycemia 05/10/19 08:00 06/09/19 07:59 Dextrose (Dextrose 50%) 50 ml Q30M PRN IV Hypoglycemia 05/10/19 08:00 06/09/19 07:59 Dextrose/Sodium Chloride 1,000 ml @ 60 mls/hr [id number] IV 05/10/19 10:30 06/09/19 10:29 05/12/19 05:43 Docusate Sodium (Colace) 100 mg DAILY ORAL 05/10/19 09:00 06/09/19 08:59 05/12/19 08:52 Guaifenesin/ Dextromethorphan (Robitussin DM Syrup) 15 ml Q6H PRN ORAL For Cough 05/11/19 15:45 06/10/19 15:44 05/11/19 17:10 Levothyroxine Sodium (Synthroid) 25 mcg DAILY@0630 ORAL 05/11/19 06:30 06/10/19 06:29 05/12/19 05:43 Lorazepam (Ativan) 0.5 mg Q6H PRN ORAL For Anxiety 05/10/19 04:45 05/17/19 04:44 Memantine (Namenda) 5 mg TWICE A DAY ORAL 05/10/19 09:00 06/09/19 08:59 05/12/19 08:52 Morphine Sulfate (Morphine Sulfate) 2 mg Q4H PRN IVP Severe Pain (Pain Scale 7-10) 05/10/19 08:00 05/17/19 07:59 Ondansetron HCl (Zofran) 4 mg Q6H PRN IVP Nausea & Vomiting 05/10/19 08:00 06/09/19 07:59 Polyethylene Glycol (Miralax) 17 gm DAILYPRN PRN ORAL Constipation 05/10/19 08:00 06/09/19 07:59 Valproic Acid (Depakene) 250 mg BID ORAL 05/10/19 09:00 06/09/19 08:59 05/12/19 08:52 Vancomycin HCl (Vanco rx to dose) 1 ea DAILY PRN MISC SEPSIS/PNA 05/10/19 08:30 06/09/19 08:29 Vancomycin HCl 1 gm/Dextrose 275 ml @ 183.3 mls/ hr Q24H IV 05/10/19 23:00 05/15/19 22:59 05/11/19 23:42 Boni Miller MD May 12, 2019 12:08
--- NOTE | 2019-05-12 12:41 | General Progress Note ---
Assessment/Plan Problem List: (1) Pneumonia ICD Codes: J18.9 - Pneumonia, unspecified organism SNOMED: 875218798 (2) HTN (hypertension) ICD Codes: I10 - Essential (primary) hypertension SNOMED: 52988916 (3) COPD (chronic obstructive pulmonary disease) ICD Codes: J44.9 - Chronic obstructive pulmonary disease, unspecified SNOMED: 99695815 (4) CKD (chronic kidney disease) ICD Codes: N18.9 - Chronic kidney disease, unspecified SNOMED: 120259657 (5) Psychiatric disorder ICD Codes: F99 - Mental disorder, not otherwise specified SNOMED: 82044211, 539141758 (6) Severe protein-calorie malnutrition ICD Codes: E43 - Unspecified severe protein-calorie malnutrition SNOMED: 546063903 (7) Sepsis ICD Codes: A41.9 - Sepsis, unspecified organism SNOMED: 62707759 Qualifiers: Qualified Codes: A41.9 - Sepsis, unspecified organism Status: stable, progressing Assessment/Plan: o2 pulm tx abx pt diet eval cbc bmp am aru eval Subjective Constitutional: Reports: weakness Allergies: Coded Allergies: No Known Allergies (Unverified , 05/14/18) All Systems: reviewed and negative except above Subjective sleepy calm Objective Last 24 Hour Vital Signs Date Time Temp Pulse Resp B/P (MAP) Pulse Ox O2 Delivery O2 Flow Rate FiO2 05/12/19 09:00 Room Air 05/12/19 08:00 98.0 80 18 130/70 (90) 96 05/12/19 04:00 97.8 75 18 131/74 (93) 94 05/12/19 00:00 97.6 82 18 138/82 (100) 93 05/11/19 23:20 99 Nasal Cannula 2.0 28 05/11/19 23:20 79 16 99 Nasal Cannula 2.0 28 05/11/19 21:00 Nasal Cannula 2.0 05/11/19 20:00 97.5 81 20 150/81 (104) 95 Intake and Output 05/11/19 05/12/19 19:00 07:00 Intake Total 1140 ml 1320 ml Output Total 900 ml Balance 1140 ml 420 ml Intake Oral 600 ml IV Total 540 ml 720 ml Other 600 ml Output Urine Total 900 ml Laboratory Tests 05/12/19 05:38: White Blood Count 4.6L, Red Blood Count 3.83L, Hemoglobin 10.6L, Hematocrit 32.9L, Mean Corpuscular Volume 86, Mean Corpuscular Hemoglobin 27.8, Mean Corpuscular Hemoglobin Concent 32.4, Red Cell Distribution Width 14.5, Platelet Count 182, Mean Platelet Volume 6.1L, Neutrophils (%) (Auto) 59.1, Lymphocytes ( %) (Auto) 29.5, Monocytes (%) (Auto) 7.7, Eosinophils (%) (Auto) 2.4, Basophils (%) (Auto) 1.2, Sodium Level 139, Potassium Level 3.8, Chloride Level 106, Carbon Dioxide Level 28, Anion Gap 5, Blood Urea Nitrogen 10, Creatinine 0.7, Estimat Glomerular Filtration Rate , Glucose Level 82, Calcium Level 8.8 Height (Feet): 5 Height (Inches): 4.00 Weight (Pounds): 139 General Appearance: lethargic EENT: normal ENT inspection Neck: normal alignment Cardiovascular: normal peripheral pulses, normal rate, regular rhythm Respiratory/Chest: chest wall non-tender, lungs clear, normal breath sounds Abdomen: normal bowel sounds, non tender, soft Extremities: normal inspection Edema: no edema noted Arm (L), no edema noted Arm (R), no edema noted Leg (L), no edema noted Leg (R), no edema noted Pedal (L), no edema noted Pedal (R), no edema noted Generalized Neurologic: motor weakness Skin: normal pigmentation, warm/dry Rell Tovar DO May 12, 2019 12:41
--- NOTE | 2019-05-12 15:36 | NUR ---
ST NOTES: SWALLOW STATUS: PATIENT NOT RECEPTIVE TO PO INTAKE AT THIS TIME. REVIEWED MOD BARIUM SWALLOW STUDY IMAGES AND COMPLETED REPORT. EDUCATED/TRAINED RN (KOKI) IN POSTED PRECAUTIONS. GOALS VARIABLY MET FOR INTAKE 50-75%). PER RN, PT WANTS TO SELF-FEED AND DISLIKES BEING FED. PLAN: F/UP WITH PLAN OF CARE IN MOD BARIUM SWALLOW STUDY REPORT. CONTINUE WITH CURRENT DIET/LIQUIDS UNTIL HE HAS CONSISTENT INTAKE OF 75%. Addendum: 05/12/19 at 1537 by GEOVANNA MENDENHALL REVIEWED SWALLOW/ASPIRATION PRECAUTIONS WITH FEEDER, RADHA GARCIA.
[2019-05-12 16:08] VITALS: BP 140/80
[2019-05-12] MEDS: LORazepam 0.5mg tab ORAL PRN ×2 (16:30→23:31)
--- NOTE | 2019-05-12 16:30 | Progress Note ---
DATE: 05/12/2019 SUBJECTIVE: This is an 83-year-old male patient. He has urinary tract infection causing him to have altered mental status and overall decline in cognition below his baseline. He also has sepsis, pneumonia, urinary tract infection, and chronic renal disease that are causing him to have altered mental status and decline in cognition below his baseline. That is why, his attending physician has requested daily psychiatric consultation to prevent any further decline in his cognition. We will try to improve his cognition if possible. MENTAL STATUS EXAMINATION: This is an 83-year-old male. His appearance is disheveled. Attitude, irritable and agitated. Affect, guarded and restricted. Intellect poor. Mood, depressed and anxious. Motor activity, psychomotor agitation. Insight and judgment is poor. DIAGNOSIS: Major depressive disorder, mild, recurrent with psychotic features, rule out dementia with psychosis. PLAN: Depakote 250 mg twice a day, Depakene syrup 250 mg twice a day, Ativan 0.5 mg p.o. q.6 hours p.r.n. anxiety and agitation, and Namenda 5 mg twice a day to prevent any further decline in his cognition. Chart reviewed. Discussed with staff. The patient seen and assessed at bedside. 20 minutes of insight-oriented psychotherapy to help the patient identify his cognitive and physical impairments impulse control and behavior on the unit. 20 minutes of insight-oriented psychotherapy. Brad Barnes M.D. DR: NIGHAT JOB#: [id number] CC:
--- NOTE | 2019-05-12 16:49 | NUR ---
NURSE NOTES: patient appeared anxious and tried to get out of bed. patient does not ambulate. Ativan 0.5mg po given. keep bed in the lowest position. siderails are upx3. bed alarm is activated and lock. call light is within reach. will cont to monitor.
--- NOTE | 2019-05-12 19:19 | NUR ---
HAND-OFF: Report given to
--- NOTE | 2019-05-12 19:27 | NUR ---
NURSE NOTES: Patient in bed awake and oriented. Breathing on room air. No SOB noted. Patients IV site on left fore arm is patent. Fall precaution, aspiration and seizure precautions in place.Bed is locked and in low position. Bed in low and locked position. Bed alarm is on. Call light within reach. HOB elevated. Side rails padded. will continue to monitor the patient.
[2019-05-12 20:00] VITALS: BP 124/67
[2019-05-12] MEDS: Vancomycin 1 GM in D5W 275 ML IV SCH (22:17)
[2019-05-13] VITALS: BP 142/64
[2019-05-13] MEDS: Cefepime HCl 2 GM in D5W 110 ML IV SCH (00:34)
[2019-05-13] MEDS: D5 1/2NS 1,000 ML IV SCH ×2 (00:35→20:34)
--- NOTE | 2019-05-13 01:51 | NUR ---
NURSE NOTES: Pt is in bed, asleep. Evening meds administered as ordered. Tylenol 650mg given @22:17 for temp of 99.9 Upon reassessment after one hour temp 98.2. Ativan 0.5mg prn given @ 23:31for anxiety. Bed in low and locked position. Bed alarm is on. Call light within reach Will continue to monitor the Pt.
[2019-05-13 04:00] VITALS: BP 112/64
--- NOTE | 2019-05-13 05:02 | NUR ---
NURSE NOTES: Unable to collect sputum. Pt has dry cough, but pt stated that "i dont have any flame". Will endorsed to next shift.
[2019-05-13] MEDS: Levothyroxine 25mcg tab ORAL SCH (06:22)
--- NOTE | 2019-05-13 07:02 | NUR ---
HAND-OFF: Report given to Nicolas SAMPSON.
--- NOTE | 2019-05-13 07:52 | NUR ---
NURSE NOTES: PT AXOX1, TO NAME ONLY. PT UNABLE TO TELL RN LOCATION AND DATE. RESTING IN BED, IN NO APPARENT DISTRESS AT THIS TIME. BED IN LOWEST POSITION WITH BEDSIDE RAILS X3 RAISED. CALL LIGHT WITHIN REACH. WILL CONTINUE TO MONITOR.
[2019-05-13 07:55] LABS: BASOPHILS % (AUTO) 1.2 % (0.0-2.0); EOSINOPHILS % (AUTO) 5.5 % (0.0-3.0); HEMOGLOBIN 10.8 G/DL (14.2-18.0); LYMPHOCYTES % (AUTO) 26.3 % (20.0-45.0); MEAN CORPUSCULAR VOLUME 86 FL (80-99); MONOCYTES % (AUTO) 10.1 % (1.0-10.0); PLATELET COUNT 204 K/UL (150-450); RED BLOOD COUNT 3.85 M/UL (4.70-6.10); RED CELL DISTRIBUTION WIDTH 14.5 % (11.6-14.8); WHITE BLOOD COUNT 4.7 K/UL (4.8-10.8)
[2019-05-13 08:00] VITALS: BP 126/73
[2019-05-13 08:17] LABS: ANION GAP 8 mmol/L (5-15); BLOOD UREA NITROGEN 8 mg/dL (7-18); CARBON DIOXIDE 27 MMOL/L (21-32); CHLORIDE 108 MMOL/L (98-107); CREATININE 0.8 MG/DL (0.55-1.30); POTASSIUM 3.7 MMOL/L (3.5-5.1); SODIUM 143 MMOL/L (136-145)
[2019-05-13] MEDS: Memantine 5 MG TAB ORAL SCH ×2 (08:20→17:14)
[2019-05-13] MEDS: Valproic Acid 250mg/5ml Liquid ORAL SCH (08:20)
[2019-05-13] MEDS: Docusate 100mg cap ORAL SCH (08:21)
[2019-05-13] MEDS: Eliquis 5mg tablet ORAL SCH ×2 (08:21→17:14)
--- NOTE | 2019-05-13 09:04 | General Progress Note ---
Assessment/Plan Problem List: (1) Pneumonia ICD Codes: J18.9 - Pneumonia, unspecified organism SNOMED: 688091020 (2) HTN (hypertension) ICD Codes: I10 - Essential (primary) hypertension SNOMED: 75491360 (3) COPD (chronic obstructive pulmonary disease) ICD Codes: J44.9 - Chronic obstructive pulmonary disease, unspecified SNOMED: 55466665 (4) CKD (chronic kidney disease) ICD Codes: N18.9 - Chronic kidney disease, unspecified SNOMED: 864653971 (5) Psychiatric disorder ICD Codes: F99 - Mental disorder, not otherwise specified SNOMED: 34741494, 580653091 (6) Severe protein-calorie malnutrition ICD Codes: E43 - Unspecified severe protein-calorie malnutrition SNOMED: 028987862 (7) Sepsis ICD Codes: A41.9 - Sepsis, unspecified organism SNOMED: 16994714 Qualifiers: Qualified Codes: A41.9 - Sepsis, unspecified organism Status: stable, progressing Assessment/Plan: o2 pulm tx abx pt diet eval cbc bmp am psyc transfer Subjective Constitutional: Reports: weakness Allergies: Coded Allergies: No Known Allergies (Unverified , 05/14/18) All Systems: reviewed and negative except above Subjective sleepy calm Objective Last 24 Hour Vital Signs Date Time Temp Pulse Resp B/P (MAP) Pulse Ox O2 Delivery O2 Flow Rate FiO2 05/13/19 08:00 97.8 72 17 126/73 (90) 97 05/13/19 04:00 97.3 74 20 112/64 (80) 96 05/13/19 00:00 98.5 74 18 142/64 (90) 94 05/12/19 22:47 98.2 05/12/19 21:00 Room Air 05/12/19 20:33 97 Nasal Cannula 2.0 28 05/12/19 20:33 85 18 97 Nasal Cannula 2.0 28 05/12/19 20:00 99.0 81 18 124/67 (86) 97 05/12/19 16:08 98.7 87 18 140/80 (100) 98 05/12/19 12:00 98.3 84 18 134/77 (96) 97 Intake and Output 05/12/19 05/13/19 19:00 07:00 Intake Total 1520 ml 966.6 ml Balance 1520 ml 966.6 ml Intake Oral 800 ml IV Total 720 ml 966.6 ml # Voids 6 2 # Bowel Movements 1 Laboratory Tests 05/13/19 07:35: White Blood Count 4.7L, Red Blood Count 3.85L, Hemoglobin 10.8L, Hematocrit 33.0L, Mean Corpuscular Volume 86, Mean Corpuscular Hemoglobin 28.0, Mean Corpuscular Hemoglobin Concent 32.7, Red Cell Distribution Width 14.5, Platelet Count 204, Mean Platelet Volume 6.6, Neutrophils (%) (Auto) 57.0, Lymphocytes (% ) (Auto) 26.3, Monocytes (%) (Auto) 10.1H, Eosinophils (%) (Auto) 5.5H, Basophils (%) (Auto) 1.2, Sodium Level 143, Potassium Level 3.7, Chloride Level 108H, Carbon Dioxide Level 27, Anion Gap 8, Blood Urea Nitrogen 8, Creatinine 0.8, Estimat Glomerular Filtration Rate , Glucose Level 96, Calcium Level 9.0 Height (Feet): 5 Height (Inches): 4.00 Weight (Pounds): 151 General Appearance: lethargic EENT: normal ENT inspection Neck: normal alignment Cardiovascular: normal peripheral pulses, normal rate, regular rhythm Respiratory/Chest: chest wall non-tender, lungs clear, normal breath sounds Abdomen: normal bowel sounds, non tender, soft Extremities: normal inspection Edema: no edema noted Arm (L), no edema noted Arm (R), no edema noted Leg (L), no edema noted Leg (R), no edema noted Pedal (L), no edema noted Pedal (R), no edema noted Generalized Neurologic: motor weakness Skin: normal pigmentation, warm/dry Rell Tovar DO May 13, 2019 09:04
--- NOTE | 2019-05-13 10:31 | NUR ---
CASE MANAGEMENT:INITIAL REVIEW 05/13/19 SI: SEPSIS . PNA . ANEMIA. ACUTE ENCEPHALOPATHY 97.8 72 17 126/64 97% RA H/H 10.8/ 33.0 IS: IV CEFEPIME Q24HR IV VANCOMYCIN Q24HR IV DEXTROSE/NS @60HR ELIQUIS PO BID VALPROIC ACID PO BID ALBUTEROL HHN Q4/PRN ROBITUSSIN PO Q6/PRN SYNTHROID PO QD COLACE PO QD NAMENDA PO BID : 4E MED SURG DCP: [facility] PLAN: VIDEO SWALLOW PENDING Addendum: 05/13/19 at 1032 by NINOSKA MARTIN LVN CASE MANAGEMENT:REVIEW 05/13/19 SI: SEPSIS . PNA . ANEMIA. ACUTE ENCEPHALOPATHY 97.8 72 17 126/64 97% RA H/H 10.8/ 33.0 IS: IV CEFEPIME Q24HR IV VANCOMYCIN Q24HR IV DEXTROSE/NS @60HR ELIQUIS PO BID VALPROIC ACID PO BID ALBUTEROL HHN Q4/PRN ROBITUSSIN PO Q6/PRN SYNTHROID PO QD COLACE PO QD NAMENDA PO BID : 4E MED SURG DCP: [facility] PLAN: VIDEO SWALLOW PENDING
--- NOTE | 2019-05-13 11:09 | Pulmonology Progress Note ---
Assessment/Plan Problems: (1) Pneumonia (2) COPD (chronic obstructive pulmonary disease) (3) Emphysema lung (4) CKD (chronic kidney disease) (5) Hypothyroid (6) HCAP (healthcare-associated pneumonia) (7) Schizo affective schizophrenia Assessment/Plan improving swallow study noted respiratory treatment check sputum titrate fiO2 to sat of 92% chest PT check electrolytes dc planning soon Subjective ROS Limited/Unobtainable: No Constitutional: Reports: no symptoms HEENT: Repors: no symptoms Respiratory: Reports: no symptoms Allergies: Coded Allergies: No Known Allergies (Unverified , 05/14/18) Objective Last 24 Hour Vital Signs Date Time Temp Pulse Resp B/P (MAP) Pulse Ox O2 Delivery O2 Flow Rate FiO2 05/13/19 09:00 Room Air 05/13/19 08:00 97.8 72 17 126/73 (90) 97 05/13/19 04:00 97.3 74 20 112/64 (80) 96 05/13/19 00:00 98.5 74 18 142/64 (90) 94 05/12/19 22:47 98.2 05/12/19 21:00 Room Air 05/12/19 20:33 97 Nasal Cannula 2.0 28 05/12/19 20:33 85 18 97 Nasal Cannula 2.0 28 05/12/19 20:00 99.0 81 18 124/67 (86) 97 05/12/19 16:08 98.7 87 18 140/80 (100) 98 05/12/19 12:00 98.3 84 18 134/77 (96) 97 Intake and Output 05/12/19 05/13/19 19:00 07:00 Intake Total 1520 ml 966.6 ml Balance 1520 ml 966.6 ml Intake Oral 800 ml IV Total 720 ml 966.6 ml # Voids 6 2 # Bowel Movements 1 General Appearance: WD/WN HEENT: normocephalic, atraumatic Respiratory/Chest: chest wall non-tender, lungs clear Cardiovascular: normal peripheral pulses, regular rhythm Abdomen: normal bowel sounds, soft, non tender, no scars Extremities: no cyanosis Skin: no rash, no lesions Laboratory Tests 05/13/19 07:35: White Blood Count 4.7L, Red Blood Count 3.85L, Hemoglobin 10.8L, Hematocrit 33.0L, Mean Corpuscular Volume 86, Mean Corpuscular Hemoglobin 28.0, Mean Corpuscular Hemoglobin Concent 32.7, Red Cell Distribution Width 14.5, Platelet Count 204, Mean Platelet Volume 6.6, Neutrophils (%) (Auto) 57.0, Lymphocytes (% ) (Auto) 26.3, Monocytes (%) (Auto) 10.1H, Eosinophils (%) (Auto) 5.5H, Basophils (%) (Auto) 1.2, Sodium Level 143, Potassium Level 3.7, Chloride Level 108H, Carbon Dioxide Level 27, Anion Gap 8, Blood Urea Nitrogen 8, Creatinine 0.8, Estimat Glomerular Filtration Rate , Glucose Level 96, Calcium Level 9.0 Current Medications Medications (Trade) Dose Ordered Sig/Tiara Route PRN Reason Start Time Stop Time Status Last Admin Dose Admin Acetaminophen (Tylenol) 650 mg Q4H PRN ORAL FEVER 05/10/19 08:00 06/09/19 07:59 05/12/19 22:17 Albuterol/ Ipratropium (Albuterol/ Ipratropium) 3 ml Q4H PRN HHN Shortness of Breath 05/10/19 08:00 05/15/19 07:59 05/11/19 01:47 Apixaban (Eliquis) 5 mg BID ORAL 05/18/19 09:00 06/17/19 08:59 Apixaban (Eliquis) 10 mg BID ORAL 05/11/19 09:30 05/17/19 18:01 05/13/19 08:21 Barium Sulfate (Varibar Honey) 250 ml NOW PRN MC RAD 05/11/19 14:00 05/14/19 13:57 Barium Sulfate (Varibar [place]) 240 ml NOW PRN MC RAD 05/11/19 14:00 05/14/19 13:57 Barium Sulfate (Varibar Pudding) 230 ml NOW PRN MC RAD 05/11/19 14:00 05/14/19 13:57 Cefepime HCl 2 gm/ Dextrose 110 ml @ 220 mls/hr Q24H IV 05/11/19 01:00 05/18/19 00:59 05/13/19 00:34 Dextrose (Dextrose 50%) 25 ml Q30M PRN IV Hypoglycemia 05/10/19 08:00 06/09/19 07:59 Dextrose (Dextrose 50%) 50 ml Q30M PRN IV Hypoglycemia 05/10/19 08:00 06/09/19 07:59 Dextrose/Sodium Chloride 1,000 ml @ 60 mls/hr [id number] IV 05/10/19 10:30 06/09/19 10:29 05/13/19 00:35 Docusate Sodium (Colace) 100 mg DAILY ORAL 05/10/19 09:00 06/09/19 08:59 05/13/19 08:21 Guaifenesin/ Dextromethorphan (Robitussin DM Syrup) 15 ml Q6H PRN ORAL For Cough 05/11/19 15:45 06/10/19 15:44 05/11/19 17:10 Levothyroxine Sodium (Synthroid) 25 mcg DAILY@0630 ORAL 05/11/19 06:30 06/10/19 06:29 05/13/19 06:22 Lorazepam (Ativan) 0.5 mg Q6H PRN ORAL For Anxiety 05/10/19 04:45 05/17/19 04:44 05/12/19 23:31 Memantine (Namenda) 5 mg TWICE A DAY ORAL 05/10/19 09:00 06/09/19 08:59 05/13/19 08:20 Morphine Sulfate (Morphine Sulfate) 2 mg Q4H PRN IVP Severe Pain (Pain Scale 7-10) 05/10/19 08:00 05/17/19 07:59 Ondansetron HCl (Zofran) 4 mg Q6H PRN IVP Nausea & Vomiting 05/10/19 08:00 06/09/19 07:59 Polyethylene Glycol (Miralax) 17 gm DAILYPRN PRN ORAL Constipation 05/10/19 08:00 06/09/19 07:59 Valproic Acid (Depakene) 250 mg BID ORAL 05/10/19 09:00 06/09/19 08:59 05/13/19 08:20 Vancomycin HCl (Vanco rx to dose) 1 ea DAILY PRN MISC SEPSIS/PNA 05/10/19 08:30 06/09/19 08:29 Vancomycin HCl 1 gm/Dextrose 275 ml @ 183.3 mls/ hr Q24H IV 05/10/19 23:00 05/15/19 22:59 05/12/19 22:17 Boni Miller MD May 13, 2019 11:08
--- NOTE | 2019-05-13 11:20 | NUR ---
DISCHARGE PLAN: PATIENT HAS BEEN [facility]ED TO [facility] T:[phone] F:[phone] CLINICAL HAVE BEEN FAXED AT THIS TIME NO BEDS AVAILABLE
--- NOTE | 2019-05-13 11:55 | NUR ---
*-* DISCHARGE PLAN: DENIAL TO [facility] *-* SPOKE TO CASEY AT [facility] AT THIS TIME PATIENT DOES NOT MEET REQUIREMENT FOR ADMISSION PATIENT HAS BEEN REFFERED TO [facility] ([facility]) T: [phone]
[2019-05-13 12:00] VITALS: BP 138/73
--- NOTE | 2019-05-13 12:45 | NUR ---
SWALLOW STATUS: PATIENT WANTS TO SELF-FEED BUT TAKES TOO MUCH PUREED (TSP INSTEAD OF 1/2 ) AND FORGETS TO TAKE A LIQUID WASH (NECTAR THICK LIQUID TSP). TRAINED/EDUCATED RN EMETERIO AND FEEDER RADHA GARCIA IN POSTED PRECAUTIONS. INATAKE FAIR TO POOR 50-75% ON PUREED AND NECTAR THICK LIQUID DIET. PLAN: CONTINUE WITH [facility] PLAN OF CARE
--- NOTE | 2019-05-13 13:30 | Progress Note ---
DATE: 05/13/2019 SUBJECTIVE: This is an 83-year-old male patient with sepsis and pneumonia. This is a male patient, who is very confused and disorganized male patient. He has no logical plan for his own self-care. He has got developed alteration of activity and he still has some mood lability, confusion, and disorganized thought process worsened by stress of his medical illness. He has sepsis, pneumonia, urinary tract infection, chronic renal disease, which is causing him to have recurrent decline in his cognition below his baseline. MENTAL STATUS EXAMINATION: This is an 83-year-old male. Appearance is disheveled. Attitude, irritable and agitated. Affect, guarded and restricted. Intellect poor. Mood, depressed and anxious. Motor activity, psychomotor agitation. Insight and judgment is poor. DIAGNOSIS: Major depressive disorder, mild, recurrent with psychotic features, rule out dementia with psychosis. PLAN: The plan is to treat him with Depakote 250 twice a day, Ativan 0.5 mg every 6 hours p.r.n. anxiety and agitation, and Namenda 5 mg twice a day to prevent any further decline in cognition. A 20 minutes of cognitive behavioral therapy to help him identify his automatic negative thoughts, help him to convert his negative thoughts to more positive thoughts to reduce depression, anxiety, mood lability. Chart reviewed and discussed with staff. Seen and assessed at bedside. Brad Barnes M.D. DR: COLT JOB#: [id number] CC:
[2019-05-13 16:00] VITALS: BP 135/77
--- NOTE | 2019-05-13 16:38 | NUR ---
DISCHARGED PLANNED: SPOKE WITH MD ABOUT PATIENTS DISCHARGE PATIENT IS RETURING TO [facility] T: [phone] FOR NURSE TO NURSE REPORT ROOM# 15A LEFT A MESSAGE WITH CONSERVATOR KAREN VYAS T: [phone] [facility] CALLED PICKUP TIME 630PM Addendum: 05/14/19 at 1048 by NINOSKA MARTIN LVN PATIENT RETURNED TO FACILITY SKILLED LEVEL
[2019-05-13] MEDS: LORazepam 0.5mg tab ORAL PRN (17:14)
[2019-05-13] MEDS ORDERED: VANCOMYCIN750 MG/150 IV (18:12)
[2019-05-13] MEDS ORDERED: CEFEPIME-D2 GM/50 ML IVPB (18:12)
--- NOTE | 2019-05-13 18:16 | NUR ---
NURSE NOTES: per dr Tovar cont hosp meds upon discharge and abx per id but no id on the case so asked dr Miller who ordered it as to when the stop date is , no response from both dr Tovar and dr Miller yet
--- NOTE | 2019-05-13 18:16 | NUR ---
NURSE NOTES: CRN AND RN LEFT MESSAGE FOR DR REYES REGARDING CLARIFICATION OF IV VANCO AND IV CEFEPIME UPON DISCHARGE. NO INFECTIOUS DISEASE ON THE CASE.
--- NOTE | 2019-05-13 18:35 | NUR ---
NURSE NOTES: NO REPLY FROM DR REYES REGARDING IV ANTIBIOTICS. [facility] PLACED ON WILL CALL.
--- NOTE | 2019-05-13 19:52 | NUR ---
NURSE NOTES: NO CALL FROM DR REYES TO VERIFY IV MEDICATIONS. ENDORSED TO ADRIÁN CHANDLER.
--- NOTE | 2019-05-13 19:52 | NUR ---
HAND-OFF: Report given to Beka RICHMOND RN.
--- NOTE | 2019-05-13 19:53 | NUR ---
NURSE NOTES: Received patient in bed. A&OX2,confused, forgetful. IV site patent and intact. Bed in lowest position. Call light within reach. Will continue to monitor.
--- NOTE | 2019-05-13 19:56 | NUR ---
NURSE NOTES: RN SPOKE TO ADRIÁN BUNN, AT [facility] AND MADE AWARE RN IS WAITING FOR CLARIFICATION OF IV ANTIBIOTICS. PER [facility], THEY CAN ACCEPT PT AND HOLD BED BUT NEED TO CLARIFY MEDS. RN ENDORSED TO ADRIÁN CHANDLER.
[2019-05-13 20:00] VITALS: BP 155/95
--- NOTE | 2019-05-13 20:25 | Hematology/Onc Progress Note ---
Assessment/Plan Assessment/Plan # Dvt of the right lower extremity -- on imaging has femoral to popliteal vein involvement of the right leg --> have started on apixaban bid dosing, recommend at minimum for 3 months --> does not require hypercoag eval --> monitor for resolution of dvt --> outpatient eval # Anemia of chronic disease --> monitor for improvement --> no e/o hemolysis --> transfuse as needed --> anemia panel reviewed # COPD --> breathing treatments prn --> pulm eval # HTN --> sbp goal <140 # PNA LLL --> on abx # DANIELLE/dehydration --> improved # Psychiatric disorder --> per psych # Dvt ppx apixaban Greatly appreciate consultation, nate SAMPSON Subjective Constitutional: Denies: no symptoms, chills, fever, malaise, weakness, other HEENT: Denies: no symptoms, eye pain, blurred vision, tearing, double vision, ear pain, ear discharge, nose pain, nose congestion, throat pain, throat swelling, mouth pain, mouth swelling, other Cardiovascular: Denies: no symptoms, chest pain, edema, irregular heart rate, lightheadedness, palpitations, syncope, other Respiratory: Denies: no symptoms, cough, shortness of breath, SOB with excertion, SOB at rest, sputum, wheezing, other Gastrointestinal/Abdominal: Denies: no symptoms, abdomen distended, abdominal pain, black stools, tarry stools, blood in stool, constipated, diarrhea, difficulty swallowing, nausea, poor appetite, poor fluid intake, rectal bleeding , vomiting, other Genitourinary: Denies: no symptoms, burning, discharge, frequency, flank pain, hematuria, incontinence, pain, urgency, other Allergies: Coded Allergies: No Known Allergies (Unverified , 05/14/18) Subjective 05/12: no events overnight, tolerating apixaban well, no bleeding 05/13: no bleeding no chills, no major changes, dc planning, on anticoag Objective Objective Current Medications Medications (Trade) Dose Ordered Sig/Tiara Route PRN Reason Start Time Stop Time Status Last Admin Dose Admin Acetaminophen (Tylenol) 650 mg Q4H PRN ORAL FEVER 05/10/19 08:00 06/09/19 07:59 05/12/19 22:17 Albuterol/ Ipratropium (Albuterol/ Ipratropium) 3 ml Q4H PRN HHN Shortness of Breath 05/10/19 08:00 05/15/19 07:59 05/11/19 01:47 Apixaban (Eliquis) 5 mg BID ORAL 05/18/19 09:00 06/17/19 08:59 Apixaban (Eliquis) 10 mg BID ORAL 05/11/19 09:30 05/17/19 18:01 05/13/19 17:14 Barium Sulfate (Varibar Honey) 250 ml NOW PRN RAD 05/11/19 14:00 05/14/19 13:57 Barium Sulfate (Varibar [place]) 240 ml NOW PRN RAD 05/11/19 14:00 05/14/19 13:57 Barium Sulfate (Varibar Pudding) 230 ml NOW PRN [facility] 05/11/19 14:00 05/14/19 13:57 Cefepime HCl 2 gm/ Dextrose 110 ml @ 220 mls/hr Q24H IV 05/11/19 01:00 05/18/19 00:59 05/13/19 00:34 Dextrose (Dextrose 50%) 25 ml Q30M PRN IV Hypoglycemia 05/10/19 08:00 06/09/19 07:59 Dextrose (Dextrose 50%) 50 ml Q30M PRN IV Hypoglycemia 05/10/19 08:00 06/09/19 07:59 Dextrose/Sodium Chloride 1,000 ml @ 60 mls/hr [id number] IV 05/10/19 10:30 06/09/19 10:29 05/13/19 00:35 Docusate Sodium (Colace) 100 mg DAILY ORAL 05/10/19 09:00 06/09/19 08:59 05/13/19 08:21 Guaifenesin/ Dextromethorphan (Robitussin DM Syrup) 15 ml Q6H PRN ORAL For Cough 05/11/19 15:45 06/10/19 15:44 05/11/19 17:10 Levothyroxine Sodium (Synthroid) 25 mcg DAILY@0630 ORAL 05/11/19 06:30 06/10/19 06:29 05/13/19 06:22 Lorazepam (Ativan) 0.5 mg Q6H PRN ORAL For Anxiety 05/10/19 04:45 05/17/19 04:44 05/13/19 17:14 Memantine (Namenda) 5 mg TWICE A DAY ORAL 05/10/19 09:00 06/09/19 08:59 05/13/19 17:14 Morphine Sulfate (Morphine Sulfate) 2 mg Q4H PRN IVP Severe Pain (Pain Scale 7-10) 05/10/19 08:00 05/17/19 07:59 Ondansetron HCl (Zofran) 4 mg Q6H PRN IVP Nausea & Vomiting 05/10/19 08:00 06/09/19 07:59 Polyethylene Glycol (Miralax) 17 gm DAILYPRN PRN ORAL Constipation 05/10/19 08:00 06/09/19 07:59 Valproic Acid (Depakene) 250 mg Q12HR ORAL 05/13/19 21:00 06/09/19 08:59 Vancomycin HCl (Vanco rx to dose) 1 ea DAILY PRN MISC SEPSIS/PNA 05/10/19 08:30 06/09/19 08:29 Vancomycin/Sodium Chloride 275 ml @ 137.5 mls/ hr ONCE ONCE IVPB 05/13/19 22:00 05/13/19 23:59 Vancomycin/Sodium Chloride 275 ml @ 183.333 mls/hr Q24H IVPB 05/14/19 22:00 05/19/19 21:59 Last 24 Hour Vital Signs Date Time Temp Pulse Resp B/P (MAP) Pulse Ox O2 Delivery O2 Flow Rate FiO2 05/13/19 16:00 97.5 76 18 135/77 (96) 97 05/13/19 12:00 97.9 73 12 138/73 (94) 96 05/13/19 09:00 Room Air 05/13/19 08:10 99 Nasal Cannula 2.0 28 05/13/19 08:10 76 16 98 Nasal Cannula 2.0 28 05/13/19 08:00 97.8 72 17 126/73 (90) 97 05/13/19 04:00 97.3 74 20 112/64 (80) 96 05/13/19 00:00 98.5 74 18 142/64 (90) 94 05/12/19 22:47 98.2 05/12/19 21:00 Room Air 05/12/19 20:33 97 Nasal Cannula 2.0 28 05/12/19 20:33 85 18 97 Nasal Cannula 2.0 28 05/12/19 20:00 99.0 81 18 124/67 (86) 97 05/12/19 16:08 98.7 87 18 140/80 (100) 98 05/12/19 12:00 98.3 84 18 134/77 (96) 97 05/12/19 09:00 Room Air 05/12/19 08:00 98.0 80 18 130/70 (90) 96 05/12/19 04:00 97.8 75 18 131/74 (93) 94 05/12/19 00:00 97.6 82 18 138/82 (100) 93 05/11/19 23:20 99 Nasal Cannula 2.0 28 05/11/19 23:20 79 16 99 Nasal Cannula 2.0 28 05/11/19 21:00 Nasal Cannula 2.0 Intake and Output 05/12/19 05/13/19 19:00 07:00 Intake Total 1520 ml 966.6 ml Balance 1520 ml 966.6 ml Intake Oral 800 ml IV Total 720 ml 966.6 ml # Voids 6 2 # Bowel Movements 1 Labs Test 05/11/19 05:05 05/12/19 05:38 05/13/19 07:35 05/13/19 19:00 White Blood Count 5.5 K/UL (4.8-10.8) 4.6 K/UL (4.8-10.8) 4.7 K/UL (4.8-10.8) Red Blood Count 3.62 M/UL (4.70-6.10) 3.83 M/UL (4.70-6.10) 3.85 M/UL (4.70-6.10) Hemoglobin 10.2 G/DL (14.2-18.0) 10.6 G/DL (14.2-18.0) 10.8 G/DL (14.2-18.0) Hematocrit 30.8 % (42.0-52.0) 32.9 % (42.0-52.0) 33.0 % (42.0-52.0) Mean Corpuscular Volume 85 FL (80-99) 86 FL (80-99) 86 FL (80-99) Mean Corpuscular Hemoglobin 28.3 PG (27.0-31.0) 27.8 PG (27.0-31.0) 28.0 PG (27.0-31.0) Mean Corpuscular Hemoglobin Concent 33.2 G/DL (32.0-36.0) 32.4 G/DL (32.0-36.0) 32.7 G/DL (32.0-36.0) Red Cell Distribution Width 13.4 % (11.6-14.8) 14.5 % (11.6-14.8) 14.5 % (11.6-14.8) Platelet Count 163 K/UL (150-450) 182 K/UL (150-450) 204 K/UL (150-450) Mean Platelet Volume 6.5 FL (6.5-10.1) 6.1 FL (6.5-10.1) 6.6 FL (6.5-10.1) Neutrophils (%) (Auto) 66.7 % (45.0-75.0) 59.1 % (45.0-75.0) 57.0 % (45.0-75.0) Lymphocytes (%) (Auto) 20.1 % (20.0-45.0) 29.5 % (20.0-45.0) 26.3 % (20.0-45.0) Monocytes (%) (Auto) 9.9 % (1.0-10.0) 7.7 % (1.0-10.0) 10.1 % (1.0-10.0) Eosinophils (%) (Auto) 2.0 % (0.0-3.0) 2.4 % (0.0-3.0) 5.5 % (0.0-3.0) Basophils (%) (Auto) 1.2 % (0.0-2.0) 1.2 % (0.0-2.0) 1.2 % (0.0-2.0) Sodium Level 138 MMOL/L (136-145) 139 MMOL/L (136-145) 143 MMOL/L (136-145) Potassium Level 3.7 MMOL/L (3.5-5.1) 3.8 MMOL/L (3.5-5.1) 3.7 MMOL/L (3.5-5.1) Chloride Level 106 MMOL/L (98-107) 106 MMOL/L (98-107) 108 MMOL/L (98-107) Carbon Dioxide Level 26 MMOL/L (21-32) 28 MMOL/L (21-32) 27 MMOL/L (21-32) Anion Gap 6 mmol/L (5-15) 5 mmol/L (5-15) 8 mmol/L (5-15) Blood Urea Nitrogen 11 mg/dL (7-18) 10 mg/dL (7-18) 8 mg/dL (7-18) Creatinine 0.8 MG/DL (0.55-1.30) 0.7 MG/DL (0.55-1.30) 0.8 MG/DL (0.55-1.30) Estimat Glomerular Filtration Rate mL/min (>60) mL/min (>60) mL/min (>60) Glucose Level 93 MG/DL (74-106) 82 MG/DL (74-106) 96 MG/DL (74-106) Calcium Level 8.7 MG/DL (8.5-10.1) 8.8 MG/DL (8.5-10.1) 9.0 MG/DL (8.5-10.1) Phosphorus Level 3.0 MG/DL (2.5-4.9) Iron Level 11 ug/dL (50-175) Total Iron Binding Capacity 183 ug/dL (250-450) Percent Iron Saturation 6 % (15-50) Unsaturated Iron Binding 172 ug/dL (112-346) Ferritin 110 NG/ML (8-388) Albumin 2.8 G/DL (3.4-5.0) Vancomycin Level Trough 8.2 ug/mL (5.0-12.0) Height (Feet): 5 Height (Inches): 4.00 Weight (Pounds): 151 Objective General Appearance: lethargic HEENT: normal alignment CV: normal peripheral pulses, normal rate, regular rhythm Chest: chest wall non-tender, lungs clear, normal breath sounds Abdomen: normal bowel sounds, non tender, soft Extremities: normal inspection Edema: no cce Neurologic: motor weakness Jagdeep Carlton MD May 13, 2019 20:25
[2019-05-13] MEDS ORDERED: Valproic Acid 250mg/5ml Liquid ORAL SCH (21:00)
--- NOTE | 2019-05-13 21:40 | NUR ---
NURSE NOTES: Obtained discontinue IV antibiotic medication for discharge from Dr. Miller. Notified [facility] regarding discharge. Kady Chowdhury from [facility] made aware. Called ambulance for merchandise pickup/receiving associate the patient. Call and left message conservator(Naty Caban) for discharge.
[2019-05-13] MEDS ORDERED: Vancomycin 1.5gm/NS Premix IVPB ONE (22:00)
--- NOTE | 2019-05-13 22:15 | NUR ---
NURSE NOTES: Patient discharged [facility] with stable condition. IV and ID band removed. Patient has no belongings. Picked up by ambulance staff.
--- NOTE | 2019-05-13 22:35 | NUR ---
NURSE NOTES: Patient discharged [facility] with stable condition. Picked up by ambulance staff.
--- NOTE | 2019-05-14 09:37 | Discharge Summary ---
Discharge Summary Discharge Summary _ DATE OF ADMISSION: 05/10/2019 DATE OF DISCHARGE: 05/13/2019 DISCHARGED BY: Dr Tovar REASON FOR ADMISSION: 83 years old male, resident of [facility] facility, with past medical history of COPD/asthma, chronic kidney disease, dysphagia, was sent for evaluation due to altered mental status and fever. Patient received Tylenol prior to arrival to the emergency department. Patient by himself was unable to provide any history. Upon evaluation patient was afebrile , blood pressure was in the low side 99/61 , pulse oximetry was 92% on the room air. Laboratory work-up revealed no leukocytosis , hemoglobin 10.7, hematocrit 31.5. BUN 21, creatinine 1.2. Glucose 122. Troponin - 0.007. Stable electrolytes and stable LFT. Chest x-ray demonstrated right lower lobe infiltrate , suspicious for pneumonia. No large pleural effusion. EKG revealed sinus rhythm , no acute ischemic changes . Patien pancultured, started on empiric antibiotic and admitted for further management. CONSULTANTS: pulmonary Dr. Miller computational theory scientist/oncologist Dr. Carlton psychiatrist Dr. Barnes HOSPITAL COURSE: Patient admitted and started on gentle IV hydration and broad-spectrum antibiotic. Supplemental oxygen titrated to keep pulse oximetry above 92%. Pulmonary toilet with bronchodilator and chest physical therapy provided. Blood culture were negative. Patient was continued on empiric antibiotic for management off healthcare associated pneumonia. Antitussive provided as needed. Patient initially started on DVT prophylaxis with heparin. Venous duplex bilateral lower extremity revealed acute thrombus in the right leg , superficial femoral to popliteal vein. Left leg revealed no evidence of acute DVT. Heparin discontinued, and patient started on Eliquis. Treatment with Eliquis was recommended at minimum for 3 months and repeat venous duplex afterwards. Bedside swallow evaluation revealed evidence of dysphagia and silent aspiration risk due to dementia , COPD and respiratory issues. Speech therapist recommended to follow-up with video swallow evaluation , which can be done as outpatient. Diet texture provided as per speech therapist recommendation with strict aspiration /reflux precautions. Renal parameters and electrolytes were closely monitored. Electrolytes corrected as needed , and nephrotoxins were avoided. Prior to discharge BUN 8, creatinine 0.8. Hemoglobin and hematocrit were closely monitored with goal to keep hemoglobin above 7. Hemoglobin and hematocrit remained at the baseline ; prior to discharge hemoglobin 10.8, hematocrit 33. Anemia work-up was consistent with anemia of chronic disease. Ferritin 110. No evidence of hemolysis. Supportive care provided. Bowel regimen instituted. Levothyroxine continued. Psychiatrist followed. Psychiatric medication regimen was optimized to prevent any further decline in cognition. Cognitive behavioral therapy provided. Patient clinically stabilized and was ready for [facility] to [facility] for [facility] of care. FINAL DIAGNOSES: Acute metabolic encephalopathy Sepsis Healthcare associated pneumonia Anemia Acute DVT right lower extremity , femoral to popliteal COPD Chronic kidney disease Hypothyroidism Major depressive disorder, mild, recurrent with psychotic features DISCHARGE MEDICATIONS: See Medication Reconciliation list. DISCHARGE INSTRUCTIONS: Patient was [facility] to the [facility] facility. Follow up with medical doctor at the facility. I have been assigned to dictate discharge summary for this account. I was not involved in the patient's management. Brynn Pan NP May 14, 2019 09:37
--- NOTE | 2019-05-14 12:29 | Diagnostic Imaging Report ---
Indications: Dysphagia Technique: Patient ingested multiple substances under the supervision of speech pathology. Video fluoroscopic recording performed. Total fluoroscopy time 237 seconds. Total dose area product [id number] mGycm2 Total number of images-10 Comparison: none Findings: Ingestion of thin liquid barium demonstrates multiple episodes of dwayne aspiration. Ingestion of nectar thick liquid barium results in multiple episodes of penetration, with dwayne aspiration with ingested by straw. In ingestion of honey thick liquid barium results in penetration, no dwayne aspiration. With ingestion of barium pudding, there is early pooling of contrast in the vallecula and piriform sinuses Impression: Positive for aspiration of thin and nectar thick liquid barium, penetration of honey thick liquid barium Please refer to speech pathology report for more detailed analysis
[2019-05-14] MEDS ORDERED: Vancomycin 1.25gm/NS Premix IVPB SCH (22:00)
[2019-05-18] MEDS ORDERED: Eliquis 5mg tablet ORAL SCH (09:00)
== END 2019-05-13 22:35 | DRG 871 ==
LOC: EDBD 23:34 → EMR 23:45 → EDBEDREQ 05-10 01:00 → 4E 05-10 01:28 → EDBEDREQ 05-10 01:49 → 4E 05-10 18:13
DX: A41.9 Sepsis, unspecified organism (principal); J18.9 Pneumonia, unspecified organism; E43 Unspecified severe protein-calorie malnutrition; G93.41 Metabolic encephalopathy; F33.3 Major depressive disorder, recurrent, severe with psychotic symptoms; I82.431 Acute embolism and thrombosis of right popliteal vein; I82.411 Acute embolism and thrombosis of right femoral vein; I12.9 Hypertensive chronic kidney disease with stage 1 through stage 4 chronic kidney disease, or unspecified chronic kidney disease; N18.9 Chronic kidney disease, unspecified; J44.9 Chronic obstructive pulmonary disease, unspecified; G40.909 Epilepsy, unspecified, not intractable, without status epilepticus; E03.9 Hypothyroidism, unspecified; D64.9 Anemia, unspecified; M19.90 Unspecified osteoarthritis, unspecified site; R13.10 Dysphagia, unspecified; Y95 Nosocomial condition; F25.9 Schizoaffective disorder, unspecified
CPT/HCPCS: 36415; 71045; 74230; 80048; 80053; 80069; 80202; 82550; 82553; 82728; 83540; 83550; 83605; 84484; 85025; 87040; 92610; 93005; 93970; 94640; 94664; 96361; 96365; 99291; J7030; J7620